=== PATIENT | female | born 1940 | race Caucasian/White ===

== ENCOUNTER → 2016-12-01 | Outpatient (CLI) | payer MEDICARE ==
[2016-12-01 17:00] LABS: BLOOD UREA NITROGEN 15 MG/DL (7-18); CREATININE FOR GFR 0.81 MG/DL (0.55-1.02); GLOMERULAR FILTRATION RATE > 60.0 (>39)
[2016-12-03 15:12] LABS: T PALLIDUM AB (FTA-AB) Non Reactive (Non Reactive)
== END | disposition home or self-care (01) ==
LOC: M LAB 16:02
PROVIDERS: ATTEND Ophthalmology
DX: H47.019 Ischemic optic neuropathy, unspecified eye (principal)

== ENCOUNTER 2016-12-16 12:30 | Outpatient (CLI) | payer MEDICARE ==
[~2016-12-16] VITALS: Ht 152.4 cm; Wt 63.6 kg
[2016-12-16] MEDS ORDERED: methylPREDNISolone 1,000 MG, VIAL MATE ADAPTER 1 EACH in D5W 250 ML IV ONE (13:15)
[2016-12-17] MEDS ORDERED: ASPI81TA21 PO (12:43)
== END 2016-12-16 14:30 | disposition home or self-care (01) ==
LOC: M INFU 12:30
PROVIDERS: ATTEND Psychiatry & Neurology Neurology
DX: H47.012 Ischemic optic neuropathy, left eye (principal); Z79.82 Long term (current) use of aspirin
CPT/HCPCS: 96365; J2930

== ENCOUNTER 2016-12-17 12:15 | Outpatient (CLI) | payer MEDICARE ==
[~2016-12-17] VITALS: Ht 152.4 cm; Wt 63.6 kg
[2016-12-17 12:30] VITALS: BP 167/81
[2016-12-17] MEDS ORDERED: ASPI81TA21 PO (12:43)
[2016-12-17] MEDS ORDERED: methylPREDNISolone 1,000 MG, VIAL MATE ADAPTER 1 EACH in D5W 250 ML IV ONE (12:45)
== END 2016-12-17 14:32 | disposition home or self-care (01) ==
LOC: M OPCLI4PR 12:15 → M OPCLIPED 12:15 → M PED 12:19 → M OPCLI4PR 14:32
PROVIDERS: ATTEND Psychiatry & Neurology Neurology
DX: H47.012 Ischemic optic neuropathy, left eye (principal)
CPT/HCPCS: 96365; J2930

== ENCOUNTER 2016-12-18 11:47 | Outpatient (CLI) | payer MEDICARE ==
[~2016-12-18] VITALS: Ht 152.4 cm; Wt 63.4 kg
[~2016-12-18 11:47] MED LIST: ASPI81TA21 PO
[2016-12-18 12:00] VITALS: BP 173/85
[2016-12-18] MEDS ORDERED: methylPREDNISolone 1,000 MG, VIAL MATE ADAPTER 1 EACH in D5W 250 ML IV ONE (13:00)
[2016-12-18 14:00] VITALS: BP 189/94
[2016-12-18 14:15] VITALS: BP 189/103
[2016-12-18 14:17] VITALS: BP 190/100
== END 2016-12-18 15:00 | disposition home or self-care (01) ==
LOC: M OPCLI4PR 11:47 → M PED 11:50 → M OPCLI4PR 15:00
PROVIDERS: ATTEND Psychiatry & Neurology Neurology
DX: H47.012 Ischemic optic neuropathy, left eye (principal)
CPT/HCPCS: 96365; J2930

== ENCOUNTER → 2019-01-07 | Outpatient (REF) | payer MEDICARE ==
[2019-01-07 13:09] LABS: FOLATE 10.8 NG/ML
== END ==
LOC: M LAB REF 12:21
PROVIDERS: ATTEND Internal Medicine
DX: G31.84 Mild cognitive impairment of uncertain or unknown etiology (principal)

== ENCOUNTER 2019-11-20 15:13 | Emergency (ER) | payer MEDICARE ==
[~2019-11-20] VITALS: Ht 149.9 cm; Wt 68.4 kg
[2019-11-20] MEDS ORDERED: LISI-538 PO (15:26)
[2019-11-20] MEDS ORDERED: ROSU5TAB5 PO (15:26)
[2019-11-20] MEDS ORDERED: ISOVUE-370 76% 100ML VIAL (Q9967) As Ordered ONE (17:22)
[2019-11-20] MEDS ORDERED: NS 1,000 ML IV ONE (17:30)
[2019-11-20] MEDS ORDERED: ONDANSETRON 4MG/2ML VIAL (J2405) IV ONE (17:30)
[2019-11-20 17:31] LABS: BASO # 0.1 10^3/uL (0.0-0.2); BASO % 1.1 % (0.0-1.0); EOS # 0.1 10^3/uL (0.0-0.5); EOS % 0.7 % (0.0-3.0); HEMATOCRIT 38.9 % (36.0-47.0); HEMOGLOBIN 12.7 g/dl (12.0-15.5); LYMPH # 1.1 10^3/uL (1.5-5.0); LYMPH % 13.9 % (24.0-44.0); MEAN CORPUSCULAR HGB CONC 32.6 g/dl (32.0-36.5); MEAN CORPUSCULAR VOLUME 88.8 fl (80.0-96.0); MONO # 0.4 10^3/uL (0.0-0.8); MONO % 5.8 % (0.0-5.0); NEUTROPHILS # 5.9 10^3/uL (1.5-8.5); NEUTROPHILS % 78.1 % (36.0-66.0); PLATELET COUNT, AUTOMATED 245 10^3/uL (150-450); RED BLOOD COUNT 4.38 10^6/uL (4.00-5.40); WHITE BLOOD COUNT 7.6 10^3/uL (4.0-10.0)
[2019-11-20 17:41] LABS: INR 1.05; PROTHROMBIN TIME 13.4 SECONDS (11.8-14.0)
[2019-11-20 17:49] LABS: ALBUMIN 3.9 GM/DL (3.2-5.2); ALT/SGPT 21 U/L (12-78); BILIRUBIN,DIRECT 0.2 MG/DL (0.0-0.2); BILIRUBIN,TOTAL 0.7 MG/DL (0.2-1.0); CK-MB VALUE MASS 1.9 NG/ML (<3.6); CPK CREATINE PHOSPHOKINASE 145 U/L (26-192); LIPASE 104 U/L (73-393); MB/CK RELATIVE INDEX 1.31 (< OR =4); TOTAL PROTEIN 6.8 GM/DL (6.4-8.2); TROPONIN I < 0.02 NG/ML (< 0.10)
--- NOTE | 2019-11-20 17:49 | REPVR ---
PROCEDURE INFORMATION: Exam: CT Head Without Contrast Exam date and time: 11/20/2019 5:27 PM Age: 79 years old Clinical indication: Altered mental status/memory loss; Additional info: Memory issues/shaking TECHNIQUE: Imaging protocol: Computed tomography of the head without contrast. Radiation optimization: All CT scans at this facility use at least one of these dose optimization techniques: automated exposure control; mA and/or kV adjustment per patient size (includes targeted exams where dose is matched to clinical indication); or iterative reconstruction. COMPARISON: No relevant prior studies available. FINDINGS: Brain: There are moderate periventricular and subcortical lucencies consistent with chronic microvascular ischemic changes. The menjivar-white differentiation is maintained. No hemorrhage. No edema. Ventricles: Normal. No ventriculomegaly. Bones/joints: Unremarkable. No acute fracture. Sinuses: Visualized sinuses are unremarkable. No fluid levels. Mastoid air cells: Visualized mastoid air cells are well aerated. Orbits: Bilateral cataract surgery. Soft tissues: Unremarkable. IMPRESSION: No acute intracranial abnormality. Chronic microvascular ischemic changes. Electronically signed by: Kenan Hutchins On 11/20/2019 17:49:28 PM
--- NOTE | 2019-11-20 18:02 | REPVR ---
PROCEDURE INFORMATION: Exam: CT Abdomen And Pelvis With Contrast Exam date and time: 11/20/2019 5:27 PM Age: 79 years old Clinical indication: Abdominal pain; Localized; Right; Additional info: Right abd pain TECHNIQUE: Imaging protocol: Computed tomography of the abdomen and pelvis with intravenous contrast. Radiation optimization: All CT scans at this facility use at least one of these dose optimization techniques: automated exposure control; mA and/or kV adjustment per patient size (includes targeted exams where dose is matched to clinical indication); or iterative reconstruction. Contrast material: ISOVUE 370; Contrast volume: 100 ml; Contrast route: IV; COMPARISON: No relevant prior studies available. FINDINGS: Liver: Multiple cysts in the liver, the largest measures 3 cm in the right hepatic lobe. Gallbladder and bile ducts: Normal. No calcified stones. No ductal dilation. Pancreas: Multiple cystic lesions in the pancreas. 1.3 cm cystic lesion in the pancreatic body. There is a 1.8 cm ill-defined hypodensity in the pancreatic head. Spleen: Normal. No splenomegaly. Adrenals: Normal. No mass. Kidneys and ureters: Normal. No hydronephrosis. Stomach and bowel: Unremarkable. No obstruction. No mucosal thickening. Appendix: No evidence of appendicitis. Intraperitoneal space: Unremarkable. No free air. No significant fluid collection. Vasculature: Unremarkable. No abdominal aortic aneurysm. Lymph nodes: Unremarkable. No enlarged lymph nodes. Bladder: Unremarkable as visualized. Reproductive: Unremarkable as visualized. Bones/joints: Endometrial cavity measures 2.3 cm diverticulosis of the sigmoid colon degenerative changes of the spine. Degenerative changes of bilateral hip joints. Soft tissues: Unremarkable. IMPRESSION: No acute abdominal or pelvic abnormality. Multiple cystic lesions in the pancreas. MRI with and without contrast is recommended for complete evaluation. Electronically signed by: Kenan Hutchins On 11/20/2019 18:02:02 PM
[2019-11-20 19:26] VITALS: BP 146/91
--- NOTE | 2019-11-20 20:51 | REPVR ---
PROCEDURE INFORMATION: Exam: US Pelvis Complete, Transabdominal Exam date and time: 11/20/2019 7:52 PM Age: 79 years old Clinical indication: Abnormal findings; Abnormal imaging test; Additional info: Enlarged endometrial cavity on CT TECHNIQUE: Imaging protocol: Real-time transabdominal pelvic ultrasound with image documentation. Complete exam. COMPARISON: CT ABD/PEL W/IV CONTRAST ONLY 11/20/2019 5:27 PM FINDINGS: Uterus/cervix: Uterus measures 5.0 x 3.4 x 3.2 cm. 2 cystic areas are noted in the endometrium measuring 2.2 cm and 1.2 cm. Other smaller cystic foci are present. No solid endometrial mass is seen. Some intervening tissue is present between the 2 cystic areas. No uterine masses are identified. Endometrial vascularity was not assessed on the exam. Right adnexa: Not visualized. Left adnexa: Not visualized. Free fluid: None. IMPRESSION: Endometrium replaced by multiple cystic areas which have a nonspecific appearance. Consider endometrial sampling or short-term followup. Electronically signed by: Andres Goss On 11/20/2019 20:51:40 PM
[2019-11-20] MEDS ORDERED: ONDA4TAB6 PO (21:16)
--- NOTE | 2019-11-22 13:11 | ECGEPIP ---
[facility] - ED Test Date: 2019-11-20 Pat Name: RICHARD ALDANA Department: Room: - Gender: Female Batter Out: : 1940 Requested By: Carol Membreno Order Number: [id number] Reading MD: Carol Membreno Measurements Intervals [place] Rate: 76 P: -17 MT: 143 QRS: 47 QRSD: 86 T: 126 QT: 361 QTc: 407 Interpretive Statements SINUS RHYTHM MODERATE T-WAVE ABNORMALITY, CONSIDER ISCHEMIA NO PRIOR Electronically Signed on 11-22-2019 13:10:45 EST by Carol Membreno
--- NOTE | 2019-11-25 15:03 | ED PDOC ---
Post-Departure Follow-Up dr doyle faxed formal report of ct abd/p and pelvic us for fu Maria Elena Cuello MD Nov 25, 2019 15:03
== END 2019-11-20 22:12 | disposition home or self-care (01) ==
LOC: M ED 15:13
DX: K86.9 Disease of pancreas, unspecified (principal); N85.9 Noninflammatory disorder of uterus, unspecified; R11.0 Nausea; I67.82 Cerebral ischemia; E78.5 Hyperlipidemia, unspecified; Z79.899 Other long term (current) drug therapy; Z79.82 Long term (current) use of aspirin
CPT/HCPCS: 70450; 74177; 76830; 76856; 80047; 80076; 81001; 82550; 82553; 83690; 84484; 85025; 85610; 86850; 86900; 86901; 93005; 96361; 96374; 99284; J2405; Q9967

== ENCOUNTER → 2019-12-06 | Outpatient (CLI) | payer MEDICARE ==
[~2019-12-06] MED LIST changes: +LISI-538 PO; +ONDA4TAB6 PO; +PROHANCE 279.3MG/ML 15ML VIAL (A9576) As Ordered ONE; +ROSU5TAB5 PO
--- NOTE | 2019-12-06 12:28 | REP ---
MRI ABDOMEN AND PANCREAS WITHOUT AND WITH IV GADOLINIUM: HISTORY: Cystic lesions in the pancreas on CT study November 20, 2019. TECHNIQUE: Axial and coronal T1- and T2-weighted scans include spin-echo, fast spin-echo, in and [id number], and dynamically acquired sequential post contrast imaging. Contrast enhancement dose is 12 mL of intravenous ProHance. MRI FINDINGS: Multiple simple hepatic cysts are seen as on CT study. T2-weighted scans demonstrate a T2 hyperintense, well-defined simple-appearing cyst along the superior margin of the pancreas at the head/body junction. This measures 13 mm in diameter. There are tiny cysts in the pancreatic tail, and there are one or two tiny sub-centimeter cysts adjacent to the CBD in the head of the pancreas. No pancreatic mass lesion is observed. Postcontrast imaging of the pancreas shows no focal area of abnormal contrast enhancement in the pancreas. There is no evidence of upper abdominal adenopathy. No focal liver mass lesion is seen. The spleen is unremarkable. Normal adrenal glands are seen bilaterally. There are tiny subcentimeter cortical cysts in the kidneys. IMPRESSION: Small simple-appearing cystic areas in the pancreas, head, and body. The largest is 13 mm in diameter. No evidence of pancreatic mass lesion. Consider followup scan in 6-12 months. Electronically Signed by Yovani Teran MD 12/06/2019 12:34 P
== END ==
LOC: M RAD 10:46
PROVIDERS: ATTEND Internal Medicine
DX: D48.7 Neoplasm of uncertain behavior of other specified sites (principal)
CPT/HCPCS: 74183; A9576

== ENCOUNTER → 2020-04-27 | Outpatient (CLI) | payer MEDICARE ==
[~2020-04-27] MED LIST changes: +BIOT5TAB3 PO; +BUSP5TA PO; +CALC250T PO; +D200CAP3 PO; +DONE10TA90 PO; +GOOD81CH PO; -PROHANCE 279.3MG/ML 15ML VIAL (A9576) As Ordered ONE; +SERT50TA29 PO
== END ==
LOC: M LABSMTC 10:07
PROVIDERS: ATTEND Anesthesiology
DX: Z01.818 Encounter for other preprocedural examination (principal); Z11.59 Encounter for screening for other viral diseases
CPT/HCPCS: C9803; U0003

== ENCOUNTER 2020-04-30 11:05 | Day surgery (SDC) | payer MEDICARE ==
[~2020-04-30] VITALS: Ht 149.9 cm; Wt 62.2 kg
[~2020-04-30 11:05] MED LIST changes: +LIDOCAINE 1% MDV 20ML VIAL SQ PRN
[2020-04-30] MEDS ORDERED: ROCURONIUM BROMIDE 50 MG/5 ML VIAL As Ordered ONE (12:05)
[2020-04-30] MEDS ORDERED: LIDOCAINE 2% 100MG/5ML SDV (FOR ANES.) As Ordered ONE (12:05)
[2020-04-30] MEDS ORDERED: ONDANSETRON 4MG/2ML VIAL As Ordered ONE (12:05)
[2020-04-30] MEDS ORDERED: dexameTHASONE 4 MG/ML 1ML VIAL (J1100 PER 1MG) As Ordered ONE (12:05)
[2020-04-30] MEDS ORDERED: propofoL 200 MG/20 ML VIAL As Ordered ONE (12:05)
[2020-04-30] MEDS ORDERED: fentaNYL 100 MCG/2 ML INJECTION (J3010) As Ordered ONE (12:08)
[2020-04-30] MEDS ORDERED: MIDAZOLAM INJ 2MG/2ML VIAL (J2250 PER 1MG) As Ordered ONE (12:08)
[2020-04-30] MEDS ORDERED: KETOROLAC 60MG 2ML VIAL As Ordered ONE (14:20)
[2020-04-30] MEDS ORDERED: LR 1,000 ML IV SCH ×2 (15:15)
[2020-04-30] MEDS ORDERED: METOCLOPRAMIDE INJ 10MG/2ML VIAL (J2765 PER 1) IV PRN (15:15)
[2020-04-30] MEDS ORDERED: ONDANSETRON 4MG/2ML VIAL IV PRN (15:15)
[2020-04-30] MEDS ORDERED: PERCOCET 5MG/325MG TAB PO PRN (15:15)
[2020-04-30] MEDS ORDERED: fentaNYL 100 MCG/2 ML INJECTION (J3010) IV PRN (15:15)
[2020-04-30] MEDS ORDERED: IBUPROFEN 600MG TAB PO PRN (15:15)
[2020-04-30 16:45] VITALS: BP 144/69
== END 2020-04-30 16:50 | disposition home or self-care (01) ==
LOC: M SDC 11:05
PROVIDERS: ATTEND Obstetrics & Gynecology
DX: N95.0 Postmenopausal bleeding (principal); N84.0 Polyp of corpus uteri; I10 Essential (primary) hypertension; F03.90 Unspecified dementia, unspecified severity, without behavioral disturbance, psychotic disturbance, mood disturbance, and anxiety; E78.00 Pure hypercholesterolemia, unspecified; Z79.82 Long term (current) use of aspirin; Z79.899 Other long term (current) drug therapy
CPT/HCPCS: 58558; 88305; J1100; J1885; J2250; J2405; J3010

== ENCOUNTER → 2020-11-26 | Outpatient (REF) | payer MEDICARE ==
[~2020-11-26] MED LIST changes: -LIDOCAINE 1% MDV 20ML VIAL SQ PRN; -LISI-538 PO; +LISI20TA33 PO
== END ==
LOC: M LAB REF 12:16
PROVIDERS: ATTEND Internal Medicine
DX: R10.9 Unspecified abdominal pain (principal)

== ENCOUNTER 2022-06-08 11:29 | Inpatient (IN) | payer MEDICARE ==
[~2022-06-08] VITALS: Ht 144.8 cm; Wt 54.5 kg
[~2022-06-08 11:29] MED LIST changes: -GOOD81CH PO; +RA A PO
[2022-06-08] MEDS ORDERED: MIDAZOLAM INJ 2MG/2ML VIAL IM ONE (11:50)
[2022-06-08] MEDS ORDERED: diphenhydrAMINE 50MG/ML VIAL IM ONE (11:50)
[2022-06-08] MEDS ORDERED: HALOPERIDOL 5MG/ML 1ML VIAL IM ONE (11:50)
[2022-06-08 11:55] LABS: BASO % 0.8 % (0.0-1.0); EOS # 0.1 10^3/uL (0.0-0.5); EOS % 2.6 % (0.0-3.0); HEMATOCRIT 39.9 % (36.0-47.0); HEMOGLOBIN 13.2 g/dl (12.0-15.5); LYMPH # 1.2 10^3/uL (1.5-5.0); LYMPH % 24.1 % (24.0-44.0); MEAN CORPUSCULAR HEMOGLOBIN 29.7 pg (27.0-33.0); MEAN CORPUSCULAR HGB CONC 33.1 g/dl (32.0-36.5); MEAN CORPUSCULAR VOLUME 89.7 fl (80.0-96.0); MONO # 0.4 10^3/uL (0.0-0.8); MONO % 7.8 % (2.0-8.0); NEUTROPHILS # 3.2 10^3/uL (1.5-8.5); NEUTROPHILS % 64.5 % (36.0-66.0); PLATELET COUNT, AUTOMATED 208 10^3/uL (150-450); RED BLOOD COUNT 4.45 10^6/uL (4.00-5.40)
[2022-06-08 12:35] LABS: ALBUMIN 3.5 GM/DL (3.2-5.2); ALKALINE PHOSPHATASE 56 U/L (45-117); ALT/SGPT 20 U/L (12-78); AST/SGOT 19 U/L (7-37); BILIRUBIN,DIRECT 0.2 MG/DL (0.0-0.2); BILIRUBIN,TOTAL 0.9 MG/DL (0.2-1.0); BLOOD UREA NITROGEN 13 MG/DL (7-18); CALCIUM LEVEL 9.2 MG/DL (8.8-10.2); CARBON DIOXIDE LEVEL 26 MEQ/L (21-32); CHLORIDE LEVEL 112 MEQ/L (98-107); CREATININE FOR GFR 0.81 MG/DL (0.55-1.30); ETHYL ALCOHOL (ETHANOL) < 0.003 % (0.000-0.010); GLOMERULAR FILTRATION RATE > 60.0 (>39); GLUCOSE, FASTING 125 MG/DL (70-100); LIPASE 120 U/L (73-393); POTASSIUM SERUM 4.2 MEQ/L (3.5-5.1); SODIUM LEVEL 143 MEQ/L (136-145); TOTAL PROTEIN 6.4 GM/DL (6.4-8.2)
[2022-06-08 12:36] LABS: ACETAMINOPHEN LEVEL < 2.0 UG/ML (10.0-30.0); SALICYLATE LEVEL < 1.7 MG/DL (5.0-30.0); THYROID STIMULATING HORMONE 0.915 uIU/ML (0.358-3.740)
[2022-06-08 12:48] LABS: RSV AMPLIFICATION NEGATIVE (NEGATIVE)
[2022-06-08] MEDS ORDERED: OLANZapine 5 MG TAB PO ONE (15:00)
[2022-06-08] MEDS ORDERED: HOME MED LIST COMPLETE! XX SCH (16:25)
[2022-06-08] MEDS ORDERED: hydrALAZINE 20MG/ML 1ML VIAL IV PRN (17:10)
[2022-06-08 17:12] LABS: AMPHETAMINES LEVEL URINE NEGATIVE (NEGATIVE); BARBITURATES URINE NEGATIVE (NEGATIVE); BENZODIAZEPINES URINE NEGATIVE (NEGATIVE); CANNABINOIDS URINE NEGATIVE (NEGATIVE); COCAINE METABOLITE URINE NEGATIVE (NEGATIVE); METHADONE URINE NEGATIVE (NEGATIVE); OPIATES URINE NEGATIVE (NEGATIVE); PHENCYCLIDINE URINE NEGATIVE (NEGATIVE)
[2022-06-08] MEDS: HALOPERIDOL 5MG/ML 1ML VIAL IM PRN (17:38)
[2022-06-08 19:59] VITALS: BP 187/96
[2022-06-08 20:43] VITALS: BP 116/69
[2022-06-08] MEDS ORDERED: OLANZapine 5 MG TAB PO SCH (21:00)
[2022-06-09 04:00] VITALS: BP 138/87
[2022-06-09] MEDS: HALOPERIDOL 5MG/ML 1ML VIAL IM PRN (04:24)
[2022-06-09 05:47] LABS: ALBUMIN 3.7 GM/DL (3.2-5.2); ALKALINE PHOSPHATASE 57 U/L (45-117); ALT/SGPT 20 U/L (12-78); AST/SGOT 22 U/L (7-37); BLOOD UREA NITROGEN 13 MG/DL (7-18); CALCIUM LEVEL 9.2 MG/DL (8.8-10.2); CARBON DIOXIDE LEVEL 26 MEQ/L (21-32); CHLORIDE LEVEL 110 MEQ/L (98-107); GLOMERULAR FILTRATION RATE > 60.0 (>39); GLUCOSE, FASTING 101 MG/DL (70-100); MAGNESIUM LEVEL 2.2 MG/DL (1.8-2.4); PHOSPHORUS LEVEL 3.9 MG/DL (2.5-4.9); POTASSIUM SERUM 3.8 MEQ/L (3.5-5.1); SODIUM LEVEL 139 MEQ/L (136-145); TOTAL PROTEIN 6.5 GM/DL (6.4-8.2)
[2022-06-09 08:29] VITALS: BP 123/66
[2022-06-09] MEDS: ENOXAPARIN 40MG/0.4ML SYRINGE (J1650 PER 10MG) SC SCH (09:06)
[2022-06-09 15:37] VITALS: BP 90/57
[2022-06-09 20:00] VITALS: BP 100/66
[2022-06-10] VITALS: BP 106/61
[2022-06-10 04:00] VITALS: BP 110/70
[2022-06-10 09:52] VITALS: BP 104/63
[2022-06-10] MEDS: ENOXAPARIN 40MG/0.4ML SYRINGE (J1650 PER 10MG) SC SCH (10:20)
[2022-06-10 16:20] VITALS: BP 111/63
[2022-06-11 06:00] VITALS: BP 155/74
[2022-06-11] MEDS: ENOXAPARIN 40MG/0.4ML SYRINGE (J1650 PER 10MG) SC SCH (08:29)
[2022-06-11] MEDS ORDERED: HOME MED LIST COMPLETE! XX SCH (08:55)
[2022-06-11] MEDS: HALOPERIDOL 5MG/ML 1ML VIAL IM PRN (23:31)
[2022-06-12 05:26] VITALS: BP_SYST 122; BP_SYST 127; BP_DIAS 74; BP_DIAS 78
[2022-06-12] MEDS: ENOXAPARIN 40MG/0.4ML SYRINGE (J1650 PER 10MG) SC SCH (08:11)
[2022-06-12] MEDS: HALOPERIDOL 5MG/ML 1ML VIAL IM PRN (21:34)
[2022-06-13 06:00] VITALS: BP 119/71
[2022-06-13] MEDS: ENOXAPARIN 40MG/0.4ML SYRINGE (J1650 PER 10MG) SC SCH (09:12)
[2022-06-14] MEDS: ENOXAPARIN 40MG/0.4ML SYRINGE (J1650 PER 10MG) SC SCH (08:28)
[2022-06-15 06:00] VITALS: BP 129/71
[2022-06-15] MEDS: ENOXAPARIN 40MG/0.4ML SYRINGE (J1650 PER 10MG) SC SCH (08:18)
[2022-06-15] MEDS: RAMELTEON 8 MG TAB (ROZEREM) PO PRN (22:01)
[2022-06-16 06:00] VITALS: BP 115/72
[2022-06-16] MEDS: ENOXAPARIN 40MG/0.4ML SYRINGE (J1650 PER 10MG) SC SCH (08:37)
[2022-06-16 09:00] VITALS: BP 134/65
[2022-06-16] MEDS: RAMELTEON 8 MG TAB (ROZEREM) PO PRN (19:32)
[2022-06-17 06:00] VITALS: BP 133/64
[2022-06-17] MEDS: ENOXAPARIN 40MG/0.4ML SYRINGE (J1650 PER 10MG) SC SCH (10:49)
[2022-06-18 06:00] VITALS: BP 120/74
[2022-06-18] MEDS: ENOXAPARIN 40MG/0.4ML SYRINGE (J1650 PER 10MG) SC SCH (08:15)
[2022-06-18] MEDS: DIMETHICONE 2% OINTMENT(VANICREAM) 70GM TUBE TOP SCH ×2 (10:39→21:12)
[2022-06-18] MEDS: RAMELTEON 8 MG TAB (ROZEREM) PO PRN (23:25)
[2022-06-19 05:35] VITALS: BP 140/84
[2022-06-19] MEDS: ENOXAPARIN 40MG/0.4ML SYRINGE (J1650 PER 10MG) SC SCH (08:43)
[2022-06-19] MEDS: DIMETHICONE 2% OINTMENT(VANICREAM) 70GM TUBE TOP SCH ×2 (08:44→21:25)
[2022-06-20 06:00] VITALS: BP 117/52
[2022-06-20] MEDS: ENOXAPARIN 40MG/0.4ML SYRINGE (J1650 PER 10MG) SC SCH (09:02)
[2022-06-20] MEDS: DIMETHICONE 2% OINTMENT(VANICREAM) 70GM TUBE TOP SCH ×2 (09:31→21:18)
[2022-06-21 06:00] VITALS: BP 122/68
[2022-06-21] MEDS: ENOXAPARIN 40MG/0.4ML SYRINGE (J1650 PER 10MG) SC SCH (08:05)
[2022-06-21] MEDS: DIMETHICONE 2% OINTMENT(VANICREAM) 70GM TUBE TOP SCH ×2 (08:06→21:21)
[2022-06-22 06:00] VITALS: BP 105/63
[2022-06-22] MEDS: ENOXAPARIN 40MG/0.4ML SYRINGE (J1650 PER 10MG) SC SCH ×2 (09:00→09:10)
[2022-06-22] MEDS: DIMETHICONE 2% OINTMENT(VANICREAM) 70GM TUBE TOP SCH ×2 (09:10→22:24)
[2022-06-22] MEDS ORDERED: COVID-19 VACC, MRNA(PFIZER)/PF 30MCG 0.3ML VIAL (EUA) IM ONE (17:00)
[2022-06-23 06:00] VITALS: BP 125/64
[2022-06-23 07:21] LABS: HEMATOCRIT 35.6 % (36.0-47.0); HEMOGLOBIN 11.2 g/dl (12.0-15.5); MEAN CORPUSCULAR HGB CONC 31.5 g/dl (32.0-36.5); MEAN CORPUSCULAR VOLUME 92.2 fl (80.0-96.0); PLATELET COUNT, AUTOMATED 188 10^3/uL (150-450); RED BLOOD COUNT 3.86 10^6/uL (4.00-5.40); WHITE BLOOD COUNT 5.9 10^3/uL (4.0-10.0)
[2022-06-23 07:56] LABS: BLOOD UREA NITROGEN 21 MG/DL (7-18); CALCIUM LEVEL 9.2 MG/DL (8.8-10.2); CARBON DIOXIDE LEVEL 27 MEQ/L (21-32); CHLORIDE LEVEL 108 MEQ/L (98-107); CREATININE FOR GFR 0.71 MG/DL (0.55-1.30); GLOMERULAR FILTRATION RATE > 60.0 (>32); GLUCOSE, FASTING 85 MG/DL (70-100); POTASSIUM SERUM 4.3 MEQ/L (3.5-5.1); SODIUM LEVEL 140 MEQ/L (136-145)
[2022-06-23] MEDS: ENOXAPARIN 40MG/0.4ML SYRINGE (J1650 PER 10MG) SC SCH (08:22)
[2022-06-23] MEDS: DIMETHICONE 2% OINTMENT(VANICREAM) 70GM TUBE TOP SCH ×2 (08:22→20:39)
[2022-06-23] MEDS: HALOPERIDOL 5MG/ML 1ML VIAL IM PRN (20:34)
[2022-06-24 05:42] VITALS: BP 150/77
[2022-06-24] MEDS: ENOXAPARIN 40MG/0.4ML SYRINGE (J1650 PER 10MG) SC SCH (08:49)
[2022-06-24] MEDS: DIMETHICONE 2% OINTMENT(VANICREAM) 70GM TUBE TOP SCH ×2 (08:50→19:56)
[2022-06-24] MEDS: RAMELTEON 8 MG TAB (ROZEREM) PO PRN (20:13)
[2022-06-24] MEDS: QUEtiapine FUMARATE 12.5 MG HALF-TAB PO SCH (20:32)
[2022-06-25] MEDS: ENOXAPARIN 40MG/0.4ML SYRINGE (J1650 PER 10MG) SC SCH (09:00)
[2022-06-25] MEDS: DIMETHICONE 2% OINTMENT(VANICREAM) 70GM TUBE TOP SCH ×2 (09:23→20:24)
[2022-06-25] MEDS: RAMELTEON 8 MG TAB (ROZEREM) PO PRN (20:24)
[2022-06-25] MEDS: QUEtiapine FUMARATE 12.5 MG HALF-TAB PO SCH (20:24)
[2022-06-26 06:25] LABS: HEMATOCRIT 31.9 % (36.0-47.0); HEMOGLOBIN 10.5 g/dl (12.0-15.5); MEAN CORPUSCULAR HEMOGLOBIN 29.9 pg (27.0-33.0); MEAN CORPUSCULAR HGB CONC 32.9 g/dl (32.0-36.5); MEAN CORPUSCULAR VOLUME 90.9 fl (80.0-96.0); PLATELET COUNT, AUTOMATED 185 10^3/uL (150-450); RED BLOOD COUNT 3.51 10^6/uL (4.00-5.40); WHITE BLOOD COUNT 4.8 10^3/uL (4.0-10.0)
[2022-06-26 07:19] LABS: ALKALINE PHOSPHATASE 48 U/L (45-117); ALT/SGPT 28 U/L (12-78); AST/SGOT 29 U/L (7-37); BILIRUBIN,TOTAL 0.6 MG/DL (0.2-1.0); BLOOD UREA NITROGEN 24 MG/DL (7-18); CALCIUM LEVEL 8.8 MG/DL (8.8-10.2); CARBON DIOXIDE LEVEL 28 MEQ/L (21-32); CHLORIDE LEVEL 111 MEQ/L (98-107); CREATININE FOR GFR 0.74 MG/DL (0.55-1.30); GLOMERULAR FILTRATION RATE > 60.0 (>32); GLUCOSE, FASTING 99 MG/DL (70-100); POTASSIUM SERUM 4.2 MEQ/L (3.5-5.1); SODIUM LEVEL 142 MEQ/L (136-145); TOTAL PROTEIN 5.3 GM/DL (6.4-8.2)
[2022-06-26] MEDS: DIMETHICONE 2% OINTMENT(VANICREAM) 70GM TUBE TOP SCH ×2 (07:41→19:54)
[2022-06-26] MEDS: ENOXAPARIN 40MG/0.4ML SYRINGE (J1650 PER 10MG) SC SCH (07:41)
[2022-06-26] MEDS ORDERED: QUEtiapine FUMARATE 12.5 MG HALF-TAB PO PRN (12:15)
[2022-06-26] MEDS: RAMELTEON 8 MG TAB (ROZEREM) PO PRN (19:54)
[2022-06-26] MEDS: QUEtiapine FUMARATE 12.5 MG HALF-TAB PO SCH (19:54)
[2022-06-27 06:00] VITALS: BP 120/75
[2022-06-27] MEDS: ENOXAPARIN 40MG/0.4ML SYRINGE (J1650 PER 10MG) SC SCH (09:31)
[2022-06-27] MEDS: DIMETHICONE 2% OINTMENT(VANICREAM) 70GM TUBE TOP SCH ×2 (09:31→21:04)
[2022-06-27] MEDS: QUEtiapine FUMARATE 12.5 MG HALF-TAB PO SCH (21:03)
[2022-06-28 05:02] VITALS: BP 117/65
[2022-06-28] MEDS: DIMETHICONE 2% OINTMENT(VANICREAM) 70GM TUBE TOP SCH ×2 (08:21→20:19)
[2022-06-28] MEDS: ENOXAPARIN 40MG/0.4ML SYRINGE (J1650 PER 10MG) SC SCH (08:21)
[2022-06-28] MEDS ORDERED: HALOPERIDOL 5MG/ML 1ML VIAL IM PRN (15:10)
[2022-06-28] MEDS: QUEtiapine FUMARATE 25 MG TAB PO SCH (20:19)
[2022-06-29 07:03] VITALS: BP 125/78
[2022-06-29] MEDS: DIMETHICONE 2% OINTMENT(VANICREAM) 70GM TUBE TOP SCH ×2 (09:18→20:11)
[2022-06-29] MEDS: ENOXAPARIN 40MG/0.4ML SYRINGE (J1650 PER 10MG) SC SCH (09:18)
[2022-06-29] MEDS: QUEtiapine FUMARATE 25 MG TAB PO SCH (20:11)
[2022-06-29] MEDS: RAMELTEON 8 MG TAB (ROZEREM) PO PRN (20:11)
[2022-06-30] MEDS: ENOXAPARIN 40MG/0.4ML SYRINGE (J1650 PER 10MG) SC SCH ×2 (08:15→08:19)
[2022-06-30] MEDS: DIMETHICONE 2% OINTMENT(VANICREAM) 70GM TUBE TOP SCH ×2 (08:16→20:12)
[2022-06-30] MEDS: QUEtiapine FUMARATE 25 MG TAB PO SCH (20:07)
[2022-06-30] MEDS: RAMELTEON 8 MG TAB (ROZEREM) PO PRN (20:07)
[2022-07-01 06:00] VITALS: BP 112/63
[2022-07-01 09:00] VITALS: BP 108/56
[2022-07-01] MEDS: ENOXAPARIN 40MG/0.4ML SYRINGE (J1650 PER 10MG) SC SCH ×2 (09:00→09:23)
[2022-07-01] MEDS ORDERED: FUROSEMIDE 40 MG TAB PO SCH (09:00)
[2022-07-01] MEDS: DIMETHICONE 2% OINTMENT(VANICREAM) 70GM TUBE TOP SCH ×2 (09:24→19:52)
[2022-07-01 14:05] LABS: BLOOD UREA NITROGEN 22 MG/DL (7-18); CALCIUM LEVEL 9.2 MG/DL (8.8-10.2); CARBON DIOXIDE LEVEL 30 MEQ/L (21-32); CHLORIDE LEVEL 107 MEQ/L (98-107); CREATININE FOR GFR 0.89 MG/DL (0.55-1.30); GLOMERULAR FILTRATION RATE > 60.0 (>32); GLUCOSE, FASTING 91 MG/DL (70-100); MAGNESIUM LEVEL 2.3 MG/DL (1.8-2.4); POTASSIUM SERUM 4.4 MEQ/L (3.5-5.1); SODIUM LEVEL 139 MEQ/L (136-145)
[2022-07-01] MEDS ORDERED: FUROSEMIDE 20 MG TAB PO ONE (14:15)
[2022-07-01] MEDS: FUROSEMIDE 20 MG TAB PO SCH (15:26)
[2022-07-01] MEDS: RAMELTEON 8 MG TAB (ROZEREM) PO PRN (19:52)
[2022-07-01] MEDS: QUEtiapine FUMARATE 25 MG TAB PO SCH (19:52)
[2022-07-02 06:00] VITALS: BP 114/64
[2022-07-02 07:03] LABS: BLOOD UREA NITROGEN 20 MG/DL (7-18); CALCIUM LEVEL 9.1 MG/DL (8.8-10.2); CARBON DIOXIDE LEVEL 27 MEQ/L (21-32); CHLORIDE LEVEL 109 MEQ/L (98-107); GLOMERULAR FILTRATION RATE > 60.0 (>32); GLUCOSE, FASTING 100 MG/DL (70-100); MAGNESIUM LEVEL 2.2 MG/DL (1.8-2.4); POTASSIUM SERUM 4.4 MEQ/L (3.5-5.1); SODIUM LEVEL 142 MEQ/L (136-145)
[2022-07-02] MEDS: DIMETHICONE 2% OINTMENT(VANICREAM) 70GM TUBE TOP SCH ×2 (09:00→19:55)
[2022-07-02] MEDS: FUROSEMIDE 20 MG TAB PO SCH (10:04)
[2022-07-02] MEDS: ENOXAPARIN 40MG/0.4ML SYRINGE (J1650 PER 10MG) SC SCH (10:04)
[2022-07-02] MEDS: QUEtiapine FUMARATE 25 MG TAB PO SCH (19:54)
[2022-07-02] MEDS: RAMELTEON 8 MG TAB (ROZEREM) PO PRN (19:54)
[2022-07-03 06:00] VITALS: BP 118/71
[2022-07-03 06:36] LABS: BLOOD UREA NITROGEN 18 MG/DL (7-18); CARBON DIOXIDE LEVEL 31 MEQ/L (21-32); CHLORIDE LEVEL 105 MEQ/L (98-107); CREATININE FOR GFR 0.82 MG/DL (0.55-1.30); GLOMERULAR FILTRATION RATE > 60.0 (>32); GLUCOSE, FASTING 123 MG/DL (70-100); MAGNESIUM LEVEL 2.4 MG/DL (1.8-2.4); POTASSIUM SERUM 4.2 MEQ/L (3.5-5.1); SODIUM LEVEL 138 MEQ/L (136-145)
[2022-07-03] MEDS: DIMETHICONE 2% OINTMENT(VANICREAM) 70GM TUBE TOP SCH ×2 (08:48→19:52)
[2022-07-03] MEDS: FUROSEMIDE 20 MG TAB PO SCH (08:48)
[2022-07-03] MEDS: ENOXAPARIN 40MG/0.4ML SYRINGE (J1650 PER 10MG) SC SCH (08:48)
[2022-07-03] MEDS: RAMELTEON 8 MG TAB (ROZEREM) PO PRN (19:52)
[2022-07-03] MEDS: QUEtiapine FUMARATE 25 MG TAB PO SCH (19:52)
[2022-07-04 05:27] VITALS: BP 122/70
[2022-07-04 07:38] LABS: BLOOD UREA NITROGEN 20 MG/DL (7-18); CALCIUM LEVEL 9.5 MG/DL (8.8-10.2); CARBON DIOXIDE LEVEL 31 MEQ/L (21-32); CHLORIDE LEVEL 106 MEQ/L (98-107); CREATININE FOR GFR 0.82 MG/DL (0.55-1.30); GLOMERULAR FILTRATION RATE > 60.0 (>32); GLUCOSE, FASTING 98 MG/DL (70-100); MAGNESIUM LEVEL 2.5 MG/DL (1.8-2.4); POTASSIUM SERUM 4.2 MEQ/L (3.5-5.1); SODIUM LEVEL 138 MEQ/L (136-145)
[2022-07-04] MEDS: FUROSEMIDE 20 MG TAB PO SCH (09:09)
[2022-07-04] MEDS: DIMETHICONE 2% OINTMENT(VANICREAM) 70GM TUBE TOP SCH ×2 (09:09→20:07)
[2022-07-04] MEDS: ENOXAPARIN 40MG/0.4ML SYRINGE (J1650 PER 10MG) SC SCH (09:09)
[2022-07-04 16:09] LABS: BASO # 0.1 10^3/uL (0.0-0.2); BASO % 0.5 % (0.0-1.0); EOS # 0.3 10^3/uL (0.0-0.5); EOS % 3.4 % (0.0-3.0); HEMATOCRIT 39.1 % (36.0-47.0); HEMOGLOBIN 12.4 g/dl (12.0-15.5); LYMPH # 1.3 10^3/uL (1.5-5.0); LYMPH % 14.5 % (24.0-44.0); MEAN CORPUSCULAR HEMOGLOBIN 29.2 pg (27.0-33.0); MEAN CORPUSCULAR HGB CONC 31.7 g/dl (32.0-36.5); MONO # 0.5 10^3/uL (0.0-0.8); MONO % 5.2 % (2.0-8.0); NEUTROPHILS # 6.9 10^3/uL (1.5-8.5); PLATELET COUNT, AUTOMATED 219 10^3/uL (150-450); RED BLOOD COUNT 4.25 10^6/uL (4.00-5.40); WHITE BLOOD COUNT 9.1 10^3/uL (4.0-10.0)
[2022-07-04] MEDS ORDERED: FUROSEMIDE 20 MG TAB PO SCH (17:00)
[2022-07-04] MEDS: DOXYCYCLINE HYCLATE 100MG TABLET PO SCH (17:44)
[2022-07-04] MEDS: FUROSEMIDE 40MG/4ML VIAL IV SCH (17:44)
[2022-07-04 20:01] LABS: APPEARANCE, URINE MANUAL CLEAR (CLEAR); COLOR, URINE MANUAL LT YELLOW (YELLOW)
[2022-07-04 20:02] LABS: BILIRUBIN, URINE MANUAL NEGATIVE (NEGATIVE); BLOOD URINE MANUAL NEGATIVE (NEGATIVE); GLUCOSE, URINE (UA) MANUAL NEGATIVE (NEGATIVE); KETONE, URINE MANUAL NEGATIVE (NEGATIVE); LEUKOCYTE ESTERASE, URINE MAN NEGATIVE (NEGATIVE); NITRITE, URINE MANUAL NEGATIVE (NEGATIVE); PH,URINE MAN 5.5 UNITS (5.0 - 7.0); PROTEIN, URINE MANUAL NEGATIVE (NEGATIVE); UROBILINOGEN, URINE MANUAL NORMAL (NORMAL)
[2022-07-04] MEDS: QUEtiapine FUMARATE 25 MG TAB PO SCH (20:07)
[2022-07-04 21:57] VITALS: BP 152/85
[2022-07-05] MEDS: DOXYCYCLINE HYCLATE 100MG TABLET PO SCH (06:07)
[2022-07-05 06:22] LABS: BASO # 0.1 10^3/uL (0.0-0.2); EOS # 0.2 10^3/uL (0.0-0.5); EOS % 3.5 % (0.0-3.0); HEMATOCRIT 36.6 % (36.0-47.0); LYMPH # 1.4 10^3/uL (1.5-5.0); LYMPH % 22.5 % (24.0-44.0); MEAN CORPUSCULAR HEMOGLOBIN 29.6 pg (27.0-33.0); MEAN CORPUSCULAR HGB CONC 32.8 g/dl (32.0-36.5); MEAN CORPUSCULAR VOLUME 90.4 fl (80.0-96.0); MONO # 0.6 10^3/uL (0.0-0.8); MONO % 10.4 % (2.0-8.0); NEUTROPHILS # 3.8 10^3/uL (1.5-8.5); NEUTROPHILS % 62.3 % (36.0-66.0); PLATELET COUNT, AUTOMATED 221 10^3/uL (150-450); RED BLOOD COUNT 4.05 10^6/uL (4.00-5.40); WHITE BLOOD COUNT 6.1 10^3/uL (4.0-10.0)
[2022-07-05 07:03] LABS: BLOOD UREA NITROGEN 19 MG/DL (7-18); CALCIUM LEVEL 9.5 MG/DL (8.8-10.2); CARBON DIOXIDE LEVEL 30 MEQ/L (21-32); CHLORIDE LEVEL 106 MEQ/L (98-107); CREATININE FOR GFR 0.82 MG/DL (0.55-1.30); GLOMERULAR FILTRATION RATE > 60.0 (>32); GLUCOSE, FASTING 88 MG/DL (70-100); MAGNESIUM LEVEL 2.4 MG/DL (1.8-2.4); SODIUM LEVEL 138 MEQ/L (136-145)
[2022-07-05] MEDS: ENOXAPARIN 40MG/0.4ML SYRINGE (J1650 PER 10MG) SC SCH (09:00)
[2022-07-05] MEDS: DIMETHICONE 2% OINTMENT(VANICREAM) 70GM TUBE TOP SCH ×2 (09:01→20:38)
[2022-07-05] MEDS: FUROSEMIDE 40MG/4ML VIAL IV SCH ×2 (09:11→16:33)
[2022-07-05 12:36] LABS: C REACTIVE PROTEIN QUANTITATIV 1.15 MG/DL (0.00-0.30)
[2022-07-05 13:47] LABS: ERYTHROCYTE SEDIMENTATION RATE 27 mm/hr (0-30)
[2022-07-05] MEDS: KETOCONAZOLE 2% CREAM TOP SCH (15:04)
[2022-07-05 16:42] VITALS: BP 127/75
[2022-07-05] MEDS: QUEtiapine FUMARATE 25 MG TAB PO SCH (20:37)
[2022-07-05 20:45] VITALS: BP 165/77
[2022-07-06 06:00] VITALS: BP 150/87
[2022-07-06 06:14] LABS: BASO # 0.1 10^3/uL (0.0-0.2); EOS # 0.3 10^3/uL (0.0-0.5); HEMATOCRIT 35.3 % (36.0-47.0); HEMOGLOBIN 11.7 g/dl (12.0-15.5); LYMPH # 1.6 10^3/uL (1.5-5.0); LYMPH % 31.2 % (24.0-44.0); MEAN CORPUSCULAR HEMOGLOBIN 30.2 pg (27.0-33.0); MEAN CORPUSCULAR HGB CONC 33.1 g/dl (32.0-36.5); MEAN CORPUSCULAR VOLUME 91.2 fl (80.0-96.0); MONO # 0.6 10^3/uL (0.0-0.8); MONO % 12.4 % (2.0-8.0); NEUTROPHILS # 2.5 10^3/uL (1.5-8.5); PLATELET COUNT, AUTOMATED 218 10^3/uL (150-450); RED BLOOD COUNT 3.87 10^6/uL (4.00-5.40); WHITE BLOOD COUNT 5.2 10^3/uL (4.0-10.0)
[2022-07-06 06:37] LABS: CALCIUM LEVEL 9.3 MG/DL (8.8-10.2); CREATININE FOR GFR 0.96 MG/DL (0.55-1.30); GLOMERULAR FILTRATION RATE 59.5 (>32); MAGNESIUM LEVEL 2.4 MG/DL (1.8-2.4); POTASSIUM SERUM 3.7 MEQ/L (3.5-5.1)
[2022-07-06] MEDS: FUROSEMIDE 40MG/4ML VIAL IV SCH ×2 (09:00→09:30)
[2022-07-06] MEDS: ENOXAPARIN 40MG/0.4ML SYRINGE (J1650 PER 10MG) SC SCH (09:00)
[2022-07-06 09:20] VITALS: BP 105/65
[2022-07-06] MEDS: DIMETHICONE 2% OINTMENT(VANICREAM) 70GM TUBE TOP SCH ×2 (09:21→21:51)
[2022-07-06] MEDS: KETOCONAZOLE 2% CREAM TOP SCH (09:21)
[2022-07-06 14:00] VITALS: BP 111/65
[2022-07-06] MEDS: FUROSEMIDE 40 MG TAB PO SCH (16:27)
[2022-07-06 21:13] VITALS: BP 123/76
[2022-07-06] MEDS: RAMELTEON 8 MG TAB (ROZEREM) PO PRN (21:50)
[2022-07-06] MEDS: QUEtiapine FUMARATE 25 MG TAB PO SCH (21:50)
[2022-07-07 06:00] VITALS: BP 102/60
[2022-07-07 08:53] LABS: BASO # 0.1 10^3/uL (0.0-0.2); BASO % 1.2 % (0.0-1.0); EOS # 0.3 10^3/uL (0.0-0.5); EOS % 5.6 % (0.0-3.0); HEMATOCRIT 34.7 % (36.0-47.0); HEMOGLOBIN 11.2 g/dl (12.0-15.5); LYMPH # 1.4 10^3/uL (1.5-5.0); LYMPH % 26.7 % (24.0-44.0); MEAN CORPUSCULAR HEMOGLOBIN 29.2 pg (27.0-33.0); MEAN CORPUSCULAR HGB CONC 32.3 g/dl (32.0-36.5); MEAN CORPUSCULAR VOLUME 90.6 fl (80.0-96.0); MONO # 0.6 10^3/uL (0.0-0.8); MONO % 10.8 % (2.0-8.0); NEUTROPHILS # 2.9 10^3/uL (1.5-8.5); NEUTROPHILS % 55.3 % (36.0-66.0); PLATELET COUNT, AUTOMATED 216 10^3/uL (150-450); RED BLOOD COUNT 3.83 10^6/uL (4.00-5.40); WHITE BLOOD COUNT 5.2 10^3/uL (4.0-10.0)
[2022-07-07] MEDS: FUROSEMIDE 40 MG TAB PO SCH ×2 (08:53→17:18)
[2022-07-07] MEDS: DIMETHICONE 2% OINTMENT(VANICREAM) 70GM TUBE TOP SCH ×2 (08:53→19:56)
[2022-07-07] MEDS: KETOCONAZOLE 2% CREAM TOP SCH (08:53)
[2022-07-07] MEDS: ENOXAPARIN 40MG/0.4ML SYRINGE (J1650 PER 10MG) SC SCH (08:53)
[2022-07-07 09:22] LABS: BLOOD UREA NITROGEN 21 MG/DL (7-18); CALCIUM LEVEL 9.1 MG/DL (8.8-10.2); CARBON DIOXIDE LEVEL 28 MEQ/L (21-32); CHLORIDE LEVEL 107 MEQ/L (98-107); CREATININE FOR GFR 0.88 MG/DL (0.55-1.30); GLOMERULAR FILTRATION RATE > 60.0 (>32); GLUCOSE, FASTING 106 MG/DL (70-100); MAGNESIUM LEVEL 2.3 MG/DL (1.8-2.4); POTASSIUM SERUM 3.8 MEQ/L (3.5-5.1); SODIUM LEVEL 140 MEQ/L (136-145)
[2022-07-07 17:19] VITALS: BP 130/74
[2022-07-07] MEDS: QUEtiapine FUMARATE 25 MG TAB PO SCH (19:55)
[2022-07-07 20:00] VITALS: BP 132/77
[2022-07-07] MEDS: RAMELTEON 8 MG TAB (ROZEREM) PO PRN (21:16)
[2022-07-08 06:15] LABS: BASO % 0.9 % (0.0-1.0); EOS # 0.3 10^3/uL (0.0-0.5); EOS % 6.5 % (0.0-3.0); HEMATOCRIT 35.3 % (36.0-47.0); HEMOGLOBIN 11.6 g/dl (12.0-15.5); LYMPH # 1.5 10^3/uL (1.5-5.0); LYMPH % 34.4 % (24.0-44.0); MEAN CORPUSCULAR HEMOGLOBIN 29.8 pg (27.0-33.0); MEAN CORPUSCULAR HGB CONC 32.9 g/dl (32.0-36.5); MEAN CORPUSCULAR VOLUME 90.7 fl (80.0-96.0); MONO # 0.5 10^3/uL (0.0-0.8); MONO % 10.8 % (2.0-8.0); NEUTROPHILS # 2.1 10^3/uL (1.5-8.5); PLATELET COUNT, AUTOMATED 207 10^3/uL (150-450); RED BLOOD COUNT 3.89 10^6/uL (4.00-5.40); WHITE BLOOD COUNT 4.5 10^3/uL (4.0-10.0)
[2022-07-08 06:27] VITALS: BP 130/80
[2022-07-08 06:43] LABS: BLOOD UREA NITROGEN 23 MG/DL (7-18); CALCIUM LEVEL 9.3 MG/DL (8.8-10.2); CARBON DIOXIDE LEVEL 33 MEQ/L (21-32); CHLORIDE LEVEL 105 MEQ/L (98-107); CREATININE FOR GFR 0.83 MG/DL (0.55-1.30); GLOMERULAR FILTRATION RATE > 60.0 (>32); GLUCOSE, FASTING 89 MG/DL (70-100); MAGNESIUM LEVEL 2.5 MG/DL (1.8-2.4); SODIUM LEVEL 140 MEQ/L (136-145)
[2022-07-08] MEDS: KETOCONAZOLE 2% CREAM TOP SCH (11:24)
[2022-07-08] MEDS: FUROSEMIDE 40 MG TAB PO SCH (11:24)
[2022-07-08] MEDS: ENOXAPARIN 40MG/0.4ML SYRINGE (J1650 PER 10MG) SC SCH (11:25)
[2022-07-08] MEDS: DIMETHICONE 2% OINTMENT(VANICREAM) 70GM TUBE TOP SCH ×2 (11:25→19:56)
[2022-07-08] MEDS: QUEtiapine FUMARATE 25 MG TAB PO SCH (19:56)
[2022-07-08] MEDS: RAMELTEON 8 MG TAB (ROZEREM) PO PRN (19:56)
[2022-07-09 07:28] LABS: BLOOD UREA NITROGEN 24 MG/DL (7-18); CALCIUM LEVEL 9.3 MG/DL (8.8-10.2); CARBON DIOXIDE LEVEL 32 MEQ/L (21-32); CHLORIDE LEVEL 105 MEQ/L (98-107); CREATININE FOR GFR 0.76 MG/DL (0.55-1.30); GLOMERULAR FILTRATION RATE > 60.0 (>32); GLUCOSE, FASTING 90 MG/DL (70-100); POTASSIUM SERUM 4.3 MEQ/L (3.5-5.1); SODIUM LEVEL 139 MEQ/L (136-145)
[2022-07-09] MEDS: ENOXAPARIN 40MG/0.4ML SYRINGE (J1650 PER 10MG) SC SCH (09:00)
[2022-07-09] MEDS: DIMETHICONE 2% OINTMENT(VANICREAM) 70GM TUBE TOP SCH ×2 (09:15→20:00)
[2022-07-09] MEDS: FUROSEMIDE 40 MG TAB PO SCH (09:15)
[2022-07-09] MEDS: KETOCONAZOLE 2% CREAM TOP SCH (09:15)
[2022-07-09] MEDS: QUEtiapine FUMARATE 25 MG TAB PO SCH (20:00)
[2022-07-09] MEDS: RAMELTEON 8 MG TAB (ROZEREM) PO PRN (20:00)
[2022-07-10] MEDS: ENOXAPARIN 40MG/0.4ML SYRINGE (J1650 PER 10MG) SC SCH (09:00)
[2022-07-10] MEDS: DIMETHICONE 2% OINTMENT(VANICREAM) 70GM TUBE TOP SCH ×2 (09:00→20:19)
[2022-07-10] MEDS: KETOCONAZOLE 2% CREAM TOP SCH (09:00)
[2022-07-10] MEDS: FUROSEMIDE 40 MG TAB PO SCH (13:33)
[2022-07-10] MEDS: QUEtiapine FUMARATE 25 MG TAB PO SCH (20:18)
[2022-07-10] MEDS: RAMELTEON 8 MG TAB (ROZEREM) PO PRN (20:18)
[2022-07-11 06:00] VITALS: BP 136/74
[2022-07-11 06:51] LABS: BLOOD UREA NITROGEN 25 MG/DL (7-18); CALCIUM LEVEL 9.3 MG/DL (8.8-10.2); CARBON DIOXIDE LEVEL 32 MEQ/L (21-32); CHLORIDE LEVEL 108 MEQ/L (98-107); CREATININE FOR GFR 0.85 MG/DL (0.55-1.30); GLOMERULAR FILTRATION RATE > 60.0 (>32); GLUCOSE, FASTING 96 MG/DL (70-100); POTASSIUM SERUM 4.3 MEQ/L (3.5-5.1); SODIUM LEVEL 143 MEQ/L (136-145)
[2022-07-11] MEDS: FUROSEMIDE 40 MG TAB PO SCH (09:16)
[2022-07-11] MEDS: ENOXAPARIN 40MG/0.4ML SYRINGE (J1650 PER 10MG) SC SCH (09:16)
[2022-07-11] MEDS: DIMETHICONE 2% OINTMENT(VANICREAM) 70GM TUBE TOP SCH ×2 (09:16→20:24)
[2022-07-11] MEDS: KETOCONAZOLE 2% CREAM TOP SCH (09:16)
[2022-07-11 09:18] VITALS: BP 121/72
[2022-07-11] MEDS: QUEtiapine FUMARATE 25 MG TAB PO SCH (20:23)
[2022-07-11] MEDS: RAMELTEON 8 MG TAB (ROZEREM) PO PRN (20:23)
[2022-07-12 05:00] VITALS: BP 134/63
[2022-07-12] MEDS: KETOCONAZOLE 2% CREAM TOP SCH (08:56)
[2022-07-12] MEDS: DIMETHICONE 2% OINTMENT(VANICREAM) 70GM TUBE TOP SCH ×2 (08:56→20:15)
[2022-07-12] MEDS: FUROSEMIDE 40 MG TAB PO SCH (08:56)
[2022-07-12] MEDS: ENOXAPARIN 40MG/0.4ML SYRINGE (J1650 PER 10MG) SC SCH (08:57)
[2022-07-12 08:58] VITALS: BP 124/70
[2022-07-12] MEDS: RAMELTEON 8 MG TAB (ROZEREM) PO PRN (20:15)
[2022-07-12] MEDS: QUEtiapine FUMARATE 25 MG TAB PO SCH (20:15)
[2022-07-13 05:00] VITALS: BP 107/45
[2022-07-13] MEDS: FUROSEMIDE 40 MG TAB PO SCH (09:00)
[2022-07-13] MEDS: ENOXAPARIN 40MG/0.4ML SYRINGE (J1650 PER 10MG) SC SCH (10:33)
[2022-07-13] MEDS: DIMETHICONE 2% OINTMENT(VANICREAM) 70GM TUBE TOP SCH ×2 (10:34→19:57)
[2022-07-13] MEDS: KETOCONAZOLE 2% CREAM TOP SCH (10:34)
[2022-07-13 10:35] VITALS: BP 108/62
[2022-07-13] MEDS: QUEtiapine FUMARATE 25 MG TAB PO SCH (19:56)
[2022-07-13] MEDS: RAMELTEON 8 MG TAB (ROZEREM) PO PRN (19:56)
[2022-07-14 06:00] VITALS: BP 131/76
[2022-07-14 08:32] VITALS: BP 113/65
[2022-07-14] MEDS: FUROSEMIDE 40 MG TAB PO SCH (08:33)
[2022-07-14] MEDS: KETOCONAZOLE 2% CREAM TOP SCH (08:34)
[2022-07-14] MEDS: ENOXAPARIN 40MG/0.4ML SYRINGE (J1650 PER 10MG) SC SCH (08:34)
[2022-07-14] MEDS: DIMETHICONE 2% OINTMENT(VANICREAM) 70GM TUBE TOP SCH ×2 (08:34→20:04)
[2022-07-14] MEDS: QUEtiapine FUMARATE 25 MG TAB PO SCH (20:04)
[2022-07-14] MEDS: RAMELTEON 8 MG TAB (ROZEREM) PO PRN (21:32)
[2022-07-15 06:00] VITALS: BP 117/78
[2022-07-15] MEDS: FUROSEMIDE 40 MG TAB PO SCH (08:06)
[2022-07-15] MEDS: ENOXAPARIN 40MG/0.4ML SYRINGE (J1650 PER 10MG) SC SCH ×2 (08:06→08:12)
[2022-07-15] MEDS: KETOCONAZOLE 2% CREAM TOP SCH (08:06)
[2022-07-15] MEDS: DIMETHICONE 2% OINTMENT(VANICREAM) 70GM TUBE TOP SCH ×2 (08:06→20:00)
[2022-07-15] MEDS: QUEtiapine FUMARATE 25 MG TAB PO SCH (20:00)
[2022-07-15] MEDS: RAMELTEON 8 MG TAB (ROZEREM) PO PRN (20:00)
[2022-07-16 06:00] VITALS: BP 122/68
[2022-07-16] MEDS: FUROSEMIDE 40 MG TAB PO SCH (10:16)
[2022-07-16] MEDS: ENOXAPARIN 40MG/0.4ML SYRINGE (J1650 PER 10MG) SC SCH (10:17)
[2022-07-16 10:18] VITALS: BP 108/53
[2022-07-16] MEDS: KETOCONAZOLE 2% CREAM TOP SCH (10:19)
[2022-07-16] MEDS: DIMETHICONE 2% OINTMENT(VANICREAM) 70GM TUBE TOP SCH ×2 (10:20→20:22)
[2022-07-16] MEDS: QUEtiapine FUMARATE 25 MG TAB PO SCH (20:22)
[2022-07-16] MEDS: RAMELTEON 8 MG TAB (ROZEREM) PO PRN (20:22)
[2022-07-17] MEDS: KETOCONAZOLE 2% CREAM TOP SCH (08:17)
[2022-07-17] MEDS: FUROSEMIDE 40 MG TAB PO SCH (08:17)
[2022-07-17] MEDS: DIMETHICONE 2% OINTMENT(VANICREAM) 70GM TUBE TOP SCH ×2 (08:17→20:16)
[2022-07-17 08:18] VITALS: BP 116/65
[2022-07-17] MEDS: ENOXAPARIN 40MG/0.4ML SYRINGE (J1650 PER 10MG) SC SCH (08:20)
[2022-07-17] MEDS: RAMELTEON 8 MG TAB (ROZEREM) PO PRN (20:16)
[2022-07-17] MEDS: QUEtiapine FUMARATE 12.5 MG HALF-TAB PO SCH (20:16)
[2022-07-18 05:27] VITALS: BP 137/80
[2022-07-18] MEDS: FUROSEMIDE 40 MG TAB PO SCH (09:12)
[2022-07-18] MEDS: KETOCONAZOLE 2% CREAM TOP SCH (09:12)
[2022-07-18] MEDS: ENOXAPARIN 40MG/0.4ML SYRINGE (J1650 PER 10MG) SC SCH (09:12)
[2022-07-18] MEDS: DIMETHICONE 2% OINTMENT(VANICREAM) 70GM TUBE TOP SCH ×2 (09:12→20:50)
[2022-07-18] MEDS: RAMELTEON 8 MG TAB (ROZEREM) PO PRN (20:50)
[2022-07-18] MEDS: QUEtiapine FUMARATE 12.5 MG HALF-TAB PO SCH (20:50)
[2022-07-19 06:10] VITALS: BP 122/57
[2022-07-19] MEDS: DIMETHICONE 2% OINTMENT(VANICREAM) 70GM TUBE TOP SCH ×2 (09:45→20:14)
[2022-07-19] MEDS: ENOXAPARIN 40MG/0.4ML SYRINGE (J1650 PER 10MG) SC SCH (09:45)
[2022-07-19] MEDS: FUROSEMIDE 40 MG TAB PO SCH (09:45)
[2022-07-19] MEDS: QUEtiapine FUMARATE 12.5 MG HALF-TAB PO SCH (20:14)
[2022-07-19] MEDS: RAMELTEON 8 MG TAB (ROZEREM) PO PRN (20:14)
[2022-07-20 06:00] VITALS: BP 130/75
[2022-07-20] MEDS: FUROSEMIDE 40 MG TAB PO SCH (11:49)
[2022-07-20] MEDS: ENOXAPARIN 40MG/0.4ML SYRINGE (J1650 PER 10MG) SC SCH (11:50)
[2022-07-20] MEDS: DIMETHICONE 2% OINTMENT(VANICREAM) 70GM TUBE TOP SCH ×2 (11:53→20:26)
[2022-07-20] MEDS: RAMELTEON 8 MG TAB (ROZEREM) PO PRN (20:26)
[2022-07-20] MEDS: QUEtiapine FUMARATE 12.5 MG HALF-TAB PO SCH (20:26)
[2022-07-21 05:57] VITALS: BP 120/70
[2022-07-21] MEDS: FUROSEMIDE 40 MG TAB PO SCH (09:08)
[2022-07-21] MEDS: ENOXAPARIN 40MG/0.4ML SYRINGE (J1650 PER 10MG) SC SCH (09:10)
[2022-07-21] MEDS: DIMETHICONE 2% OINTMENT(VANICREAM) 70GM TUBE TOP SCH ×2 (09:10→20:20)
[2022-07-21] MEDS: RAMELTEON 8 MG TAB (ROZEREM) PO PRN (20:20)
[2022-07-21] MEDS: QUEtiapine FUMARATE 12.5 MG HALF-TAB PO SCH (20:20)
[2022-07-22] MEDS: FUROSEMIDE 40 MG TAB PO SCH (08:48)
[2022-07-22] MEDS: DIMETHICONE 2% OINTMENT(VANICREAM) 70GM TUBE TOP SCH ×2 (08:48→19:58)
[2022-07-22] MEDS: ENOXAPARIN 40MG/0.4ML SYRINGE (J1650 PER 10MG) SC SCH (08:48)
[2022-07-22 08:49] VITALS: BP 130/91
[2022-07-22] MEDS: QUEtiapine FUMARATE 12.5 MG HALF-TAB PO SCH (19:58)
[2022-07-22] MEDS: RAMELTEON 8 MG TAB (ROZEREM) PO PRN (19:58)
[2022-07-23 05:45] VITALS: BP 108/56
[2022-07-23] MEDS: DIMETHICONE 2% OINTMENT(VANICREAM) 70GM TUBE TOP SCH ×2 (09:09→20:07)
[2022-07-23] MEDS: ENOXAPARIN 40MG/0.4ML SYRINGE (J1650 PER 10MG) SC SCH (09:09)
[2022-07-23] MEDS: FUROSEMIDE 40 MG TAB PO SCH (09:10)
[2022-07-23] MEDS: CALCIUM/VITAMIN D 500 MG TAB PO SCH (20:06)
[2022-07-23] MEDS: RAMELTEON 8 MG TAB (ROZEREM) PO PRN (20:06)
[2022-07-23] MEDS: QUEtiapine FUMARATE 12.5 MG HALF-TAB PO SCH (20:06)
[2022-07-24] MEDS: DIMETHICONE 2% OINTMENT(VANICREAM) 70GM TUBE TOP SCH ×2 (08:51→19:59)
[2022-07-24] MEDS: FUROSEMIDE 40 MG TAB PO SCH (08:51)
[2022-07-24] MEDS: ENOXAPARIN 40MG/0.4ML SYRINGE (J1650 PER 10MG) SC SCH (08:51)
[2022-07-24] MEDS: CALCIUM/VITAMIN D 500 MG TAB PO SCH ×3 (08:51→20:00)
[2022-07-24] MEDS: QUEtiapine FUMARATE 12.5 MG HALF-TAB PO SCH (20:00)
[2022-07-24] MEDS: RAMELTEON 8 MG TAB (ROZEREM) PO PRN (20:00)
[2022-07-25 06:00] VITALS: BP 154/89
[2022-07-25] MEDS: CALCIUM/VITAMIN D 500 MG TAB PO SCH ×3 (11:03→20:20)
[2022-07-25] MEDS: ENOXAPARIN 40MG/0.4ML SYRINGE (J1650 PER 10MG) SC SCH (11:03)
[2022-07-25] MEDS: DIMETHICONE 2% OINTMENT(VANICREAM) 70GM TUBE TOP SCH ×2 (11:04→20:20)
[2022-07-25] MEDS: FUROSEMIDE 40 MG TAB PO SCH (11:07)
[2022-07-25] MEDS: MIRALAX *UNIT DOSE* 17GM PACKET PO SCH (18:53)
[2022-07-25] MEDS: METAMUCIL (PSYLLIUM) PACKET PO SCH (19:55)
[2022-07-25] MEDS: QUEtiapine FUMARATE 12.5 MG HALF-TAB PO SCH (20:20)
[2022-07-25] MEDS: RAMELTEON 8 MG TAB (ROZEREM) PO PRN (20:20)
[2022-07-26 06:00] VITALS: BP 129/71
[2022-07-26] MEDS: ENOXAPARIN 40MG/0.4ML SYRINGE (J1650 PER 10MG) SC SCH (08:04)
[2022-07-26] MEDS: MIRALAX *UNIT DOSE* 17GM PACKET PO SCH (08:04)
[2022-07-26] MEDS: CALCIUM/VITAMIN D 500 MG TAB PO SCH ×3 (08:04→20:22)
[2022-07-26] MEDS: METAMUCIL (PSYLLIUM) PACKET PO SCH (08:04)
[2022-07-26] MEDS: FUROSEMIDE 40 MG TAB PO SCH (08:05)
[2022-07-26] MEDS: DIMETHICONE 2% OINTMENT(VANICREAM) 70GM TUBE TOP SCH ×2 (08:05→20:22)
[2022-07-26] MEDS: QUEtiapine FUMARATE 12.5 MG HALF-TAB PO SCH (20:22)
[2022-07-26] MEDS: RAMELTEON 8 MG TAB (ROZEREM) PO PRN (20:22)
[2022-07-27 06:00] VITALS: BP 144/79
[2022-07-27] MEDS: ENOXAPARIN 40MG/0.4ML SYRINGE (J1650 PER 10MG) SC SCH ×2 (09:00→09:21)
[2022-07-27] MEDS: METAMUCIL (PSYLLIUM) PACKET PO SCH (09:20)
[2022-07-27] MEDS: MIRALAX *UNIT DOSE* 17GM PACKET PO SCH (09:20)
[2022-07-27] MEDS: DIMETHICONE 2% OINTMENT(VANICREAM) 70GM TUBE TOP SCH ×2 (09:21→20:20)
[2022-07-27] MEDS: CALCIUM/VITAMIN D 500 MG TAB PO SCH ×3 (09:21→20:20)
[2022-07-27] MEDS: FUROSEMIDE 40 MG TAB PO SCH (09:21)
[2022-07-27] MEDS: QUEtiapine FUMARATE 12.5 MG HALF-TAB PO SCH (20:19)
[2022-07-27] MEDS: RAMELTEON 8 MG TAB (ROZEREM) PO PRN (20:19)
[2022-07-28 06:18] VITALS: BP 140/72
[2022-07-28 06:36] LABS: HEMATOCRIT 36.2 % (36.0-47.0); HEMOGLOBIN 11.8 g/dl (12.0-15.5); MEAN CORPUSCULAR HEMOGLOBIN 30.2 pg (27.0-33.0); MEAN CORPUSCULAR HGB CONC 32.6 g/dl (32.0-36.5); MEAN CORPUSCULAR VOLUME 92.6 fl (80.0-96.0); PLATELET COUNT, AUTOMATED 189 10^3/uL (150-450); RED BLOOD COUNT 3.91 10^6/uL (4.00-5.40); WHITE BLOOD COUNT 4.7 10^3/uL (4.0-10.0)
[2022-07-28 07:07] LABS: ALBUMIN 3.4 GM/DL (3.2-5.2); ALKALINE PHOSPHATASE 48 U/L (45-117); ALT/SGPT 21 U/L (12-78); AST/SGOT 14 U/L (7-37); BILIRUBIN,TOTAL 0.5 MG/DL (0.2-1.0); BLOOD UREA NITROGEN 16 MG/DL (7-18); CALCIUM LEVEL 9.4 MG/DL (8.8-10.2); CARBON DIOXIDE LEVEL 31 MEQ/L (21-32); CHLORIDE LEVEL 108 MEQ/L (98-107); CREATININE FOR GFR 0.83 MG/DL (0.55-1.30); GLOMERULAR FILTRATION RATE > 60.0 (>32); GLUCOSE, FASTING 92 MG/DL (70-100); MAGNESIUM LEVEL 2.3 MG/DL (1.8-2.4); POTASSIUM SERUM 4.2 MEQ/L (3.5-5.1); SODIUM LEVEL 142 MEQ/L (136-145); TOTAL PROTEIN 5.9 GM/DL (6.4-8.2)
[2022-07-28] MEDS: CALCIUM/VITAMIN D 500 MG TAB PO SCH ×4 (08:46→20:00)
[2022-07-28] MEDS: FUROSEMIDE 40 MG TAB PO SCH ×2 (08:46→08:49)
[2022-07-28] MEDS: MIRALAX *UNIT DOSE* 17GM PACKET PO SCH ×2 (08:46→08:49)
[2022-07-28] MEDS: METAMUCIL (PSYLLIUM) PACKET PO SCH ×2 (08:46→08:49)
[2022-07-28] MEDS: DIMETHICONE 2% OINTMENT(VANICREAM) 70GM TUBE TOP SCH ×2 (08:47→20:00)
[2022-07-28] MEDS: ENOXAPARIN 40MG/0.4ML SYRINGE (J1650 PER 10MG) SC SCH ×2 (08:47→08:50)
[2022-07-28] MEDS: RAMELTEON 8 MG TAB (ROZEREM) PO PRN (19:58)
[2022-07-28] MEDS: QUEtiapine FUMARATE 12.5 MG HALF-TAB PO SCH (20:00)
[2022-07-29 06:33] VITALS: BP 132/84
[2022-07-29] MEDS: MIRALAX *UNIT DOSE* 17GM PACKET PO SCH (08:30)
[2022-07-29] MEDS: METAMUCIL (PSYLLIUM) PACKET PO SCH (08:30)
[2022-07-29] MEDS: DIMETHICONE 2% OINTMENT(VANICREAM) 70GM TUBE TOP SCH ×2 (08:30→20:24)
[2022-07-29] MEDS: CALCIUM/VITAMIN D 500 MG TAB PO SCH ×3 (08:30→20:23)
[2022-07-29] MEDS: ENOXAPARIN 40MG/0.4ML SYRINGE (J1650 PER 10MG) SC SCH (08:30)
[2022-07-29] MEDS: FUROSEMIDE 40 MG TAB PO SCH (08:30)
[2022-07-29] MEDS: RAMELTEON 8 MG TAB (ROZEREM) PO PRN (20:23)
[2022-07-29] MEDS: QUEtiapine FUMARATE 12.5 MG HALF-TAB PO SCH (20:23)
[2022-07-30 04:30] VITALS: BP 134/81
[2022-07-30] MEDS: CALCIUM/VITAMIN D 500 MG TAB PO SCH ×3 (08:39→21:26)
[2022-07-30] MEDS: FUROSEMIDE 40 MG TAB PO SCH (08:40)
[2022-07-30] MEDS: MIRALAX *UNIT DOSE* 17GM PACKET PO SCH (08:40)
[2022-07-30] MEDS: METAMUCIL (PSYLLIUM) PACKET PO SCH (08:40)
[2022-07-30] MEDS: DIMETHICONE 2% OINTMENT(VANICREAM) 70GM TUBE TOP SCH ×2 (08:40→21:26)
[2022-07-30] MEDS: ENOXAPARIN 40MG/0.4ML SYRINGE (J1650 PER 10MG) SC SCH (08:51)
[2022-07-30] MEDS: RAMELTEON 8 MG TAB (ROZEREM) PO PRN (21:26)
[2022-07-30] MEDS: QUEtiapine FUMARATE 12.5 MG HALF-TAB PO SCH (21:26)
[2022-07-31 07:07] VITALS: BP 135/82
[2022-07-31] MEDS: CALCIUM/VITAMIN D 500 MG TAB PO SCH ×3 (08:26→21:22)
[2022-07-31] MEDS: MIRALAX *UNIT DOSE* 17GM PACKET PO SCH (08:26)
[2022-07-31] MEDS: METAMUCIL (PSYLLIUM) PACKET PO SCH (08:26)
[2022-07-31] MEDS: FUROSEMIDE 40 MG TAB PO SCH (08:26)
[2022-07-31] MEDS: DIMETHICONE 2% OINTMENT(VANICREAM) 70GM TUBE TOP SCH ×2 (08:27→21:22)
[2022-07-31] MEDS: ENOXAPARIN 40MG/0.4ML SYRINGE (J1650 PER 10MG) SC SCH (08:27)
[2022-07-31] MEDS: QUEtiapine FUMARATE 12.5 MG HALF-TAB PO SCH (21:22)
[2022-07-31] MEDS: RAMELTEON 8 MG TAB (ROZEREM) PO PRN (21:22)
[2022-08-01 07:03] VITALS: BP 146/86
[2022-08-01] MEDS: METAMUCIL (PSYLLIUM) PACKET PO SCH (10:28)
[2022-08-01] MEDS: ENOXAPARIN 40MG/0.4ML SYRINGE (J1650 PER 10MG) SC SCH (10:29)
[2022-08-01] MEDS: MIRALAX *UNIT DOSE* 17GM PACKET PO SCH (10:29)
[2022-08-01] MEDS: FUROSEMIDE 40 MG TAB PO SCH (10:30)
[2022-08-01] MEDS: DIMETHICONE 2% OINTMENT(VANICREAM) 70GM TUBE TOP SCH ×2 (10:30→20:43)
[2022-08-01] MEDS: CALCIUM/VITAMIN D 500 MG TAB PO SCH ×3 (10:30→20:43)
[2022-08-01] MEDS: QUEtiapine FUMARATE 12.5 MG HALF-TAB PO SCH (20:43)
[2022-08-01] MEDS: RAMELTEON 8 MG TAB (ROZEREM) PO PRN (20:44)
[2022-08-02] MEDS: MIRALAX *UNIT DOSE* 17GM PACKET PO SCH (08:08)
[2022-08-02] MEDS: METAMUCIL (PSYLLIUM) PACKET PO SCH (08:08)
[2022-08-02] MEDS: CALCIUM/VITAMIN D 500 MG TAB PO SCH ×3 (08:08→20:49)
[2022-08-02] MEDS: DIMETHICONE 2% OINTMENT(VANICREAM) 70GM TUBE TOP SCH ×2 (08:09→20:49)
[2022-08-02] MEDS: ENOXAPARIN 40MG/0.4ML SYRINGE (J1650 PER 10MG) SC SCH ×2 (08:09→08:20)
[2022-08-02] MEDS: FUROSEMIDE 40 MG TAB PO SCH (08:10)
[2022-08-02] MEDS: QUEtiapine FUMARATE 12.5 MG HALF-TAB PO SCH (20:49)
[2022-08-02] MEDS: RAMELTEON 8 MG TAB (ROZEREM) PO PRN (20:49)
[2022-08-03] MEDS: METAMUCIL (PSYLLIUM) PACKET PO SCH (09:33)
[2022-08-03] MEDS: ENOXAPARIN 40MG/0.4ML SYRINGE (J1650 PER 10MG) SC SCH (09:33)
[2022-08-03] MEDS: MIRALAX *UNIT DOSE* 17GM PACKET PO SCH (09:33)
[2022-08-03] MEDS: CALCIUM/VITAMIN D 500 MG TAB PO SCH ×3 (09:33→20:53)
[2022-08-03 09:34] VITALS: BP 116/72
[2022-08-03] MEDS: FUROSEMIDE 40 MG TAB PO SCH (09:34)
[2022-08-03] MEDS: DIMETHICONE 2% OINTMENT(VANICREAM) 70GM TUBE TOP SCH ×2 (09:34→20:53)
[2022-08-03] MEDS: QUEtiapine FUMARATE 12.5 MG HALF-TAB PO SCH (20:52)
[2022-08-03] MEDS: RAMELTEON 8 MG TAB (ROZEREM) PO PRN (20:53)
[2022-08-04] MEDS: MIRALAX *UNIT DOSE* 17GM PACKET PO SCH (09:16)
[2022-08-04] MEDS: METAMUCIL (PSYLLIUM) PACKET PO SCH (09:16)
[2022-08-04] MEDS: FUROSEMIDE 40 MG TAB PO SCH (09:17)
[2022-08-04] MEDS: CALCIUM/VITAMIN D 500 MG TAB PO SCH ×3 (09:17→20:52)
[2022-08-04] MEDS: DIMETHICONE 2% OINTMENT(VANICREAM) 70GM TUBE TOP SCH ×2 (09:17→20:53)
[2022-08-04] MEDS: ENOXAPARIN 40MG/0.4ML SYRINGE (J1650 PER 10MG) SC SCH (09:17)
[2022-08-04] MEDS: QUEtiapine FUMARATE 12.5 MG HALF-TAB PO SCH (20:51)
[2022-08-04] MEDS: RAMELTEON 8 MG TAB (ROZEREM) PO PRN (20:51)
[2022-08-04 21:00] VITALS: BP 128/76
[2022-08-05 05:40] VITALS: BP 143/84
[2022-08-05] MEDS: DIMETHICONE 2% OINTMENT(VANICREAM) 70GM TUBE TOP SCH ×2 (09:00→21:08)
[2022-08-05] MEDS: CALCIUM/VITAMIN D 500 MG TAB PO SCH ×3 (11:42→20:03)
[2022-08-05] MEDS: FUROSEMIDE 40 MG TAB PO SCH (11:43)
[2022-08-05] MEDS: ENOXAPARIN 40MG/0.4ML SYRINGE (J1650 PER 10MG) SC SCH (11:43)
[2022-08-05] MEDS: METAMUCIL (PSYLLIUM) PACKET PO SCH (11:43)
[2022-08-05] MEDS: MIRALAX *UNIT DOSE* 17GM PACKET PO SCH (11:43)
[2022-08-05 14:00] VITALS: BP 90/54
[2022-08-05] MEDS: QUEtiapine FUMARATE 12.5 MG HALF-TAB PO SCH (20:03)
[2022-08-05] MEDS: RAMELTEON 8 MG TAB (ROZEREM) PO PRN (20:03)
[2022-08-06] MEDS: FUROSEMIDE 40 MG TAB PO SCH (10:07)
[2022-08-06] MEDS: METAMUCIL (PSYLLIUM) PACKET PO SCH (10:07)
[2022-08-06] MEDS: MIRALAX *UNIT DOSE* 17GM PACKET PO SCH (10:07)
[2022-08-06] MEDS: CALCIUM/VITAMIN D 500 MG TAB PO SCH ×3 (10:07→20:01)
[2022-08-06] MEDS: DIMETHICONE 2% OINTMENT(VANICREAM) 70GM TUBE TOP SCH ×2 (10:08→20:05)
[2022-08-06] MEDS: ENOXAPARIN 40MG/0.4ML SYRINGE (J1650 PER 10MG) SC SCH (10:08)
[2022-08-06 10:10] VITALS: BP 111/72
[2022-08-06] MEDS: QUEtiapine FUMARATE 12.5 MG HALF-TAB PO SCH (20:01)
[2022-08-06] MEDS: RAMELTEON 8 MG TAB (ROZEREM) PO PRN (20:01)
[2022-08-07 06:46] VITALS: BP 146/70
[2022-08-07] MEDS: CALCIUM/VITAMIN D 500 MG TAB PO SCH ×3 (07:49→20:37)
[2022-08-07] MEDS: MIRALAX *UNIT DOSE* 17GM PACKET PO SCH (07:49)
[2022-08-07] MEDS: METAMUCIL (PSYLLIUM) PACKET PO SCH (07:49)
[2022-08-07] MEDS: FUROSEMIDE 40 MG TAB PO SCH (07:49)
[2022-08-07] MEDS: DIMETHICONE 2% OINTMENT(VANICREAM) 70GM TUBE TOP SCH ×2 (07:49→20:38)
[2022-08-07] MEDS: ENOXAPARIN 40MG/0.4ML SYRINGE (J1650 PER 10MG) SC SCH (07:50)
[2022-08-07] MEDS: RAMELTEON 8 MG TAB (ROZEREM) PO PRN (20:37)
[2022-08-07] MEDS: QUEtiapine FUMARATE 12.5 MG HALF-TAB PO SCH (20:37)
[2022-08-08 06:00] VITALS: BP_SYST 60
[2022-08-08 06:16] VITALS: BP 146/60
[2022-08-08] MEDS: MIRALAX *UNIT DOSE* 17GM PACKET PO SCH (09:00)
[2022-08-08] MEDS: ENOXAPARIN 40MG/0.4ML SYRINGE (J1650 PER 10MG) SC SCH (09:00)
[2022-08-08] MEDS: METAMUCIL (PSYLLIUM) PACKET PO SCH (09:00)
[2022-08-08] MEDS: CALCIUM/VITAMIN D 500 MG TAB PO SCH ×3 (11:18→20:43)
[2022-08-08] MEDS: FUROSEMIDE 40 MG TAB PO SCH (11:19)
[2022-08-08] MEDS: DIMETHICONE 2% OINTMENT(VANICREAM) 70GM TUBE TOP SCH ×2 (11:19→20:44)
[2022-08-08] MEDS: QUEtiapine FUMARATE 12.5 MG HALF-TAB PO SCH (20:43)
[2022-08-08] MEDS: RAMELTEON 8 MG TAB (ROZEREM) PO PRN (20:43)
[2022-08-09 06:00] VITALS: BP 127/66
[2022-08-09] MEDS: CALCIUM/VITAMIN D 500 MG TAB PO SCH ×3 (10:06→20:53)
[2022-08-09] MEDS: MIRALAX *UNIT DOSE* 17GM PACKET PO SCH (10:06)
[2022-08-09] MEDS: ENOXAPARIN 40MG/0.4ML SYRINGE (J1650 PER 10MG) SC SCH (10:07)
[2022-08-09] MEDS: FUROSEMIDE 40 MG TAB PO SCH (10:07)
[2022-08-09] MEDS: METAMUCIL (PSYLLIUM) PACKET PO SCH (10:08)
[2022-08-09] MEDS: DIMETHICONE 2% OINTMENT(VANICREAM) 70GM TUBE TOP SCH ×2 (10:08→20:58)
[2022-08-09] MEDS: QUEtiapine FUMARATE 12.5 MG HALF-TAB PO SCH (20:53)
[2022-08-09] MEDS: RAMELTEON 8 MG TAB (ROZEREM) PO PRN (20:59)
[2022-08-10] MEDS: CALCIUM/VITAMIN D 500 MG TAB PO SCH ×3 (10:35→20:16)
[2022-08-10] MEDS: METAMUCIL (PSYLLIUM) PACKET PO SCH (10:36)
[2022-08-10] MEDS: FUROSEMIDE 40 MG TAB PO SCH (10:36)
[2022-08-10] MEDS: MIRALAX *UNIT DOSE* 17GM PACKET PO SCH (10:36)
[2022-08-10] MEDS: ENOXAPARIN 40MG/0.4ML SYRINGE (J1650 PER 10MG) SC SCH (10:36)
[2022-08-10] MEDS: DIMETHICONE 2% OINTMENT(VANICREAM) 70GM TUBE TOP SCH ×2 (10:37→20:17)
[2022-08-10] MEDS: RAMELTEON 8 MG TAB (ROZEREM) PO PRN (20:16)
[2022-08-10] MEDS: QUEtiapine FUMARATE 12.5 MG HALF-TAB PO SCH (20:16)
[2022-08-11 05:38] VITALS: BP 148/96
[2022-08-11] MEDS: FUROSEMIDE 40 MG TAB PO SCH (08:30)
[2022-08-11] MEDS: ENOXAPARIN 40MG/0.4ML SYRINGE (J1650 PER 10MG) SC SCH (08:31)
[2022-08-11] MEDS: CALCIUM/VITAMIN D 500 MG TAB PO SCH ×3 (08:31→20:11)
[2022-08-11] MEDS: DIMETHICONE 2% OINTMENT(VANICREAM) 70GM TUBE TOP SCH ×2 (08:31→20:11)
[2022-08-11] MEDS: METAMUCIL (PSYLLIUM) PACKET PO SCH (08:31)
[2022-08-11] MEDS: MIRALAX *UNIT DOSE* 17GM PACKET PO SCH (08:32)
[2022-08-11] MEDS: RAMELTEON 8 MG TAB (ROZEREM) PO PRN (20:11)
[2022-08-11] MEDS: QUEtiapine FUMARATE 12.5 MG HALF-TAB PO SCH (20:11)
[2022-08-12] MEDS: ENOXAPARIN 40MG/0.4ML SYRINGE (J1650 PER 10MG) SC SCH (08:56)
[2022-08-12] MEDS: CALCIUM/VITAMIN D 500 MG TAB PO SCH ×3 (08:56→20:40)
[2022-08-12] MEDS: FUROSEMIDE 40 MG TAB PO SCH (08:56)
[2022-08-12] MEDS: METAMUCIL (PSYLLIUM) PACKET PO SCH (08:56)
[2022-08-12] MEDS: MIRALAX *UNIT DOSE* 17GM PACKET PO SCH (08:56)
[2022-08-12] MEDS: DIMETHICONE 2% OINTMENT(VANICREAM) 70GM TUBE TOP SCH ×2 (08:57→20:41)
[2022-08-12 09:30] VITALS: BP 119/82
[2022-08-12] MEDS: QUEtiapine FUMARATE 12.5 MG HALF-TAB PO SCH (20:40)
[2022-08-13 06:00] VITALS: BP 159/97
[2022-08-13] MEDS: MIRALAX *UNIT DOSE* 17GM PACKET PO SCH (10:23)
[2022-08-13] MEDS: CALCIUM/VITAMIN D 500 MG TAB PO SCH ×3 (10:23→20:06)
[2022-08-13] MEDS: METAMUCIL (PSYLLIUM) PACKET PO SCH (10:23)
[2022-08-13] MEDS: DIMETHICONE 2% OINTMENT(VANICREAM) 70GM TUBE TOP SCH ×2 (10:24→20:07)
[2022-08-13] MEDS: ENOXAPARIN 40MG/0.4ML SYRINGE (J1650 PER 10MG) SC SCH (10:29)
[2022-08-13] MEDS: FUROSEMIDE 40 MG TAB PO SCH (10:29)
[2022-08-13] MEDS: QUEtiapine FUMARATE 12.5 MG HALF-TAB PO SCH (20:06)
[2022-08-13] MEDS: RAMELTEON 8 MG TAB (ROZEREM) PO PRN (22:14)
[2022-08-14] MEDS: ENOXAPARIN 40MG/0.4ML SYRINGE (J1650 PER 10MG) SC SCH ×4 (09:00→10:07)
[2022-08-14] MEDS: MIRALAX *UNIT DOSE* 17GM PACKET PO SCH (09:54)
[2022-08-14] MEDS: METAMUCIL (PSYLLIUM) PACKET PO SCH (09:54)
[2022-08-14] MEDS: FUROSEMIDE 40 MG TAB PO SCH (09:54)
[2022-08-14] MEDS: CALCIUM/VITAMIN D 500 MG TAB PO SCH ×3 (09:54→20:20)
[2022-08-14] MEDS: DIMETHICONE 2% OINTMENT(VANICREAM) 70GM TUBE TOP SCH ×2 (09:54→20:21)
[2022-08-14] MEDS: QUEtiapine FUMARATE 12.5 MG HALF-TAB PO SCH (20:20)
[2022-08-14] MEDS: RAMELTEON 8 MG TAB (ROZEREM) PO PRN (20:20)
[2022-08-15 06:24] VITALS: BP 107/68
[2022-08-15] MEDS: MIRALAX *UNIT DOSE* 17GM PACKET PO SCH (09:41)
[2022-08-15] MEDS: CALCIUM/VITAMIN D 500 MG TAB PO SCH ×3 (09:41→20:00)
[2022-08-15] MEDS: METAMUCIL (PSYLLIUM) PACKET PO SCH (09:42)
[2022-08-15] MEDS: ENOXAPARIN 40MG/0.4ML SYRINGE (J1650 PER 10MG) SC SCH (09:42)
[2022-08-15] MEDS: DIMETHICONE 2% OINTMENT(VANICREAM) 70GM TUBE TOP SCH ×2 (09:43→20:00)
[2022-08-15] MEDS: FUROSEMIDE 40 MG TAB PO SCH (09:44)
[2022-08-15] MEDS: RAMELTEON 8 MG TAB (ROZEREM) PO PRN (20:00)
[2022-08-15] MEDS: QUEtiapine FUMARATE 12.5 MG HALF-TAB PO SCH (20:00)
[2022-08-16 06:00] VITALS: BP 131/72
[2022-08-16] MEDS: ENOXAPARIN 40MG/0.4ML SYRINGE (J1650 PER 10MG) SC SCH (09:21)
[2022-08-16] MEDS: CALCIUM/VITAMIN D 500 MG TAB PO SCH ×3 (09:21→20:25)
[2022-08-16] MEDS: METAMUCIL (PSYLLIUM) PACKET PO SCH (09:21)
[2022-08-16] MEDS: MIRALAX *UNIT DOSE* 17GM PACKET PO SCH (09:21)
[2022-08-16] MEDS: DIMETHICONE 2% OINTMENT(VANICREAM) 70GM TUBE TOP SCH ×2 (09:22→20:26)
[2022-08-16] MEDS: FUROSEMIDE 40 MG TAB PO SCH (09:22)
[2022-08-16] MEDS: RAMELTEON 8 MG TAB (ROZEREM) PO PRN (20:25)
[2022-08-16] MEDS: QUEtiapine FUMARATE 12.5 MG HALF-TAB PO SCH (20:25)
[2022-08-17 06:00] VITALS: BP 118/82
[2022-08-17] MEDS: FUROSEMIDE 40 MG TAB PO SCH (09:00)
[2022-08-17] MEDS: MIRALAX *UNIT DOSE* 17GM PACKET PO SCH (10:37)
[2022-08-17] MEDS: CALCIUM/VITAMIN D 500 MG TAB PO SCH ×3 (10:37→20:30)
[2022-08-17] MEDS: DIMETHICONE 2% OINTMENT(VANICREAM) 70GM TUBE TOP SCH ×2 (10:37→20:31)
[2022-08-17] MEDS: METAMUCIL (PSYLLIUM) PACKET PO SCH (10:37)
[2022-08-17] MEDS: ENOXAPARIN 40MG/0.4ML SYRINGE (J1650 PER 10MG) SC SCH (10:38)
[2022-08-17] MEDS: QUEtiapine FUMARATE 12.5 MG HALF-TAB PO SCH (20:30)
[2022-08-17] MEDS: RAMELTEON 8 MG TAB (ROZEREM) PO PRN (20:30)
[2022-08-18 06:00] VITALS: BP 140/77
[2022-08-18] MEDS: MIRALAX *UNIT DOSE* 17GM PACKET PO SCH (08:33)
[2022-08-18] MEDS: METAMUCIL (PSYLLIUM) PACKET PO SCH (08:33)
[2022-08-18] MEDS: CALCIUM/VITAMIN D 500 MG TAB PO SCH ×3 (08:33→20:08)
[2022-08-18] MEDS: ENOXAPARIN 40MG/0.4ML SYRINGE (J1650 PER 10MG) SC SCH (08:33)
[2022-08-18] MEDS: FUROSEMIDE 40 MG TAB PO SCH (08:33)
[2022-08-18] MEDS: DIMETHICONE 2% OINTMENT(VANICREAM) 70GM TUBE TOP SCH ×2 (08:33→20:08)
[2022-08-18] MEDS: RAMELTEON 8 MG TAB (ROZEREM) PO PRN (20:08)
[2022-08-18] MEDS: QUEtiapine FUMARATE 12.5 MG HALF-TAB PO SCH (20:08)
[2022-08-19 02:50] VITALS: BP 148/70
[2022-08-19] MEDS: ENOXAPARIN 40MG/0.4ML SYRINGE (J1650 PER 10MG) SC SCH (09:44)
[2022-08-19] MEDS: FUROSEMIDE 40 MG TAB PO SCH (09:44)
[2022-08-19] MEDS: CALCIUM/VITAMIN D 500 MG TAB PO SCH ×3 (09:44→20:12)
[2022-08-19] MEDS: DIMETHICONE 2% OINTMENT(VANICREAM) 70GM TUBE TOP SCH ×2 (09:45→20:12)
[2022-08-19] MEDS: MIRALAX *UNIT DOSE* 17GM PACKET PO SCH (09:45)
[2022-08-19] MEDS: METAMUCIL (PSYLLIUM) PACKET PO SCH (09:45)
[2022-08-19] MEDS: QUEtiapine FUMARATE 12.5 MG HALF-TAB PO SCH (20:12)
[2022-08-19] MEDS: RAMELTEON 8 MG TAB (ROZEREM) PO PRN (20:12)
[2022-08-20 06:00] VITALS: BP 136/63
[2022-08-20] MEDS: METAMUCIL (PSYLLIUM) PACKET PO SCH (09:04)
[2022-08-20] MEDS: DIMETHICONE 2% OINTMENT(VANICREAM) 70GM TUBE TOP SCH ×2 (09:05→21:06)
[2022-08-20] MEDS: FUROSEMIDE 40 MG TAB PO SCH (09:05)
[2022-08-20] MEDS: CALCIUM/VITAMIN D 500 MG TAB PO SCH ×3 (09:05→21:06)
[2022-08-20] MEDS: MIRALAX *UNIT DOSE* 17GM PACKET PO SCH (09:05)
[2022-08-20] MEDS: ENOXAPARIN 40MG/0.4ML SYRINGE (J1650 PER 10MG) SC SCH (09:05)
[2022-08-20 11:41] VITALS: BP 120/70
[2022-08-20] MEDS: QUEtiapine FUMARATE 12.5 MG HALF-TAB PO SCH (21:06)
[2022-08-20] MEDS: RAMELTEON 8 MG TAB (ROZEREM) PO PRN (21:06)
[2022-08-21 06:00] VITALS: BP 120/68
[2022-08-21] MEDS: ENOXAPARIN 40MG/0.4ML SYRINGE (J1650 PER 10MG) SC SCH ×2 (09:00→09:26)
[2022-08-21] MEDS: METAMUCIL (PSYLLIUM) PACKET PO SCH (09:26)
[2022-08-21] MEDS: DIMETHICONE 2% OINTMENT(VANICREAM) 70GM TUBE TOP SCH ×2 (09:26→20:15)
[2022-08-21] MEDS: MIRALAX *UNIT DOSE* 17GM PACKET PO SCH (09:26)
[2022-08-21] MEDS: FUROSEMIDE 40 MG TAB PO SCH (09:26)
[2022-08-21] MEDS: CALCIUM/VITAMIN D 500 MG TAB PO SCH ×3 (09:26→20:15)
[2022-08-21] MEDS: RAMELTEON 8 MG TAB (ROZEREM) PO PRN (20:15)
[2022-08-21] MEDS: QUEtiapine FUMARATE 12.5 MG HALF-TAB PO SCH (20:15)
[2022-08-22] MEDS: MIRALAX *UNIT DOSE* 17GM PACKET PO SCH (10:06)
[2022-08-22] MEDS: METAMUCIL (PSYLLIUM) PACKET PO SCH (10:06)
[2022-08-22] MEDS: FUROSEMIDE 40 MG TAB PO SCH (10:07)
[2022-08-22] MEDS: CALCIUM/VITAMIN D 500 MG TAB PO SCH ×3 (10:07→20:30)
[2022-08-22] MEDS: ENOXAPARIN 40MG/0.4ML SYRINGE (J1650 PER 10MG) SC SCH (10:07)
[2022-08-22] MEDS: DIMETHICONE 2% OINTMENT(VANICREAM) 70GM TUBE TOP SCH ×2 (10:07→20:31)
[2022-08-22] MEDS: RAMELTEON 8 MG TAB (ROZEREM) PO PRN (20:30)
[2022-08-22] MEDS: QUEtiapine FUMARATE 12.5 MG HALF-TAB PO SCH (20:30)
[2022-08-23 04:35] VITALS: BP 139/78
[2022-08-23] MEDS: CALCIUM/VITAMIN D 500 MG TAB PO SCH ×3 (09:43→19:59)
[2022-08-23] MEDS: ENOXAPARIN 40MG/0.4ML SYRINGE (J1650 PER 10MG) SC SCH (09:43)
[2022-08-23] MEDS: FUROSEMIDE 40 MG TAB PO SCH (09:43)
[2022-08-23] MEDS: METAMUCIL (PSYLLIUM) PACKET PO SCH (09:43)
[2022-08-23] MEDS: MIRALAX *UNIT DOSE* 17GM PACKET PO SCH (09:43)
[2022-08-23] MEDS: DIMETHICONE 2% OINTMENT(VANICREAM) 70GM TUBE TOP SCH ×2 (09:44→20:00)
[2022-08-23] MEDS: RAMELTEON 8 MG TAB (ROZEREM) PO PRN (19:59)
[2022-08-23] MEDS: QUEtiapine FUMARATE 12.5 MG HALF-TAB PO SCH (19:59)
[2022-08-24 06:00] VITALS: BP 150/92
[2022-08-24] MEDS: METAMUCIL (PSYLLIUM) PACKET PO SCH (08:29)
[2022-08-24] MEDS: FUROSEMIDE 40 MG TAB PO SCH (08:29)
[2022-08-24] MEDS: MIRALAX *UNIT DOSE* 17GM PACKET PO SCH (08:29)
[2022-08-24] MEDS: CALCIUM/VITAMIN D 500 MG TAB PO SCH ×3 (08:29→21:38)
[2022-08-24] MEDS: DIMETHICONE 2% OINTMENT(VANICREAM) 70GM TUBE TOP SCH ×2 (08:30→21:38)
[2022-08-24] MEDS: ENOXAPARIN 40MG/0.4ML SYRINGE (J1650 PER 10MG) SC SCH (08:30)
[2022-08-24] MEDS: QUEtiapine FUMARATE 12.5 MG HALF-TAB PO SCH (21:38)
[2022-08-24] MEDS: RAMELTEON 8 MG TAB (ROZEREM) PO PRN (21:39)
[2022-08-25 06:00] VITALS: BP 139/62
[2022-08-25] MEDS: ENOXAPARIN 40MG/0.4ML SYRINGE (J1650 PER 10MG) SC SCH (08:59)
[2022-08-25] MEDS: MIRALAX *UNIT DOSE* 17GM PACKET PO SCH (08:59)
[2022-08-25] MEDS: FUROSEMIDE 40 MG TAB PO SCH (08:59)
[2022-08-25] MEDS: CALCIUM/VITAMIN D 500 MG TAB PO SCH ×3 (08:59→20:52)
[2022-08-25] MEDS: METAMUCIL (PSYLLIUM) PACKET PO SCH (08:59)
[2022-08-25] MEDS: DIMETHICONE 2% OINTMENT(VANICREAM) 70GM TUBE TOP SCH ×2 (08:59→20:52)
[2022-08-25] MEDS: QUEtiapine FUMARATE 12.5 MG HALF-TAB PO SCH (20:51)
[2022-08-25] MEDS: RAMELTEON 8 MG TAB (ROZEREM) PO PRN (20:51)
[2022-08-26 05:38] VITALS: BP 115/83
[2022-08-26] MEDS: METAMUCIL (PSYLLIUM) PACKET PO SCH (08:03)
[2022-08-26] MEDS: FUROSEMIDE 40 MG TAB PO SCH (08:03)
[2022-08-26] MEDS: CALCIUM/VITAMIN D 500 MG TAB PO SCH ×3 (08:03→20:42)
[2022-08-26] MEDS: MIRALAX *UNIT DOSE* 17GM PACKET PO SCH (08:03)
[2022-08-26] MEDS: DIMETHICONE 2% OINTMENT(VANICREAM) 70GM TUBE TOP SCH ×2 (08:04→20:42)
[2022-08-26] MEDS: ENOXAPARIN 40MG/0.4ML SYRINGE (J1650 PER 10MG) SC SCH (08:04)
[2022-08-26] MEDS: QUEtiapine FUMARATE 12.5 MG HALF-TAB PO SCH (20:42)
[2022-08-26] MEDS: RAMELTEON 8 MG TAB (ROZEREM) PO PRN (20:42)
[2022-08-27 06:45] VITALS: BP 136/82
[2022-08-27] MEDS: CALCIUM/VITAMIN D 500 MG TAB PO SCH ×3 (12:01→20:02)
[2022-08-27] MEDS: METAMUCIL (PSYLLIUM) PACKET PO SCH (12:01)
[2022-08-27] MEDS: FUROSEMIDE 40 MG TAB PO SCH (12:01)
[2022-08-27] MEDS: MIRALAX *UNIT DOSE* 17GM PACKET PO SCH (12:01)
[2022-08-27] MEDS: ENOXAPARIN 40MG/0.4ML SYRINGE (J1650 PER 10MG) SC SCH (12:02)
[2022-08-27] MEDS: DIMETHICONE 2% OINTMENT(VANICREAM) 70GM TUBE TOP SCH ×2 (12:02→20:03)
[2022-08-27] MEDS: RAMELTEON 8 MG TAB (ROZEREM) PO PRN (20:02)
[2022-08-27] MEDS: QUEtiapine FUMARATE 12.5 MG HALF-TAB PO SCH (20:02)
[2022-08-28 06:00] VITALS: BP 127/68
[2022-08-28] MEDS: MIRALAX *UNIT DOSE* 17GM PACKET PO SCH (08:58)
[2022-08-28] MEDS: METAMUCIL (PSYLLIUM) PACKET PO SCH (08:58)
[2022-08-28] MEDS: CALCIUM/VITAMIN D 500 MG TAB PO SCH ×3 (08:58→21:20)
[2022-08-28] MEDS: FUROSEMIDE 40 MG TAB PO SCH (08:58)
[2022-08-28] MEDS: ENOXAPARIN 40MG/0.4ML SYRINGE (J1650 PER 10MG) SC SCH (09:00)
[2022-08-28] MEDS: DIMETHICONE 2% OINTMENT(VANICREAM) 70GM TUBE TOP SCH ×2 (09:02→21:21)
[2022-08-28] MEDS: RAMELTEON 8 MG TAB (ROZEREM) PO PRN (21:21)
[2022-08-28] MEDS: QUEtiapine FUMARATE 12.5 MG HALF-TAB PO SCH (21:21)
[2022-08-29] MEDS: MIRALAX *UNIT DOSE* 17GM PACKET PO SCH (09:45)
[2022-08-29] MEDS: METAMUCIL (PSYLLIUM) PACKET PO SCH (09:45)
[2022-08-29] MEDS: FUROSEMIDE 40 MG TAB PO SCH (09:46)
[2022-08-29] MEDS: CALCIUM/VITAMIN D 500 MG TAB PO SCH ×3 (09:46→19:34)
[2022-08-29] MEDS: ENOXAPARIN 40MG/0.4ML SYRINGE (J1650 PER 10MG) SC SCH (09:46)
[2022-08-29] MEDS: DIMETHICONE 2% OINTMENT(VANICREAM) 70GM TUBE TOP SCH ×2 (09:46→19:34)
[2022-08-29] MEDS: QUEtiapine FUMARATE 12.5 MG HALF-TAB PO SCH (19:34)
[2022-08-29] MEDS: RAMELTEON 8 MG TAB (ROZEREM) PO PRN (19:35)
[2022-08-30] MEDS: FUROSEMIDE 40 MG TAB PO SCH (08:23)
[2022-08-30] MEDS: CALCIUM/VITAMIN D 500 MG TAB PO SCH ×3 (08:23→19:28)
[2022-08-30] MEDS: ENOXAPARIN 40MG/0.4ML SYRINGE (J1650 PER 10MG) SC SCH (08:23)
[2022-08-30] MEDS: METAMUCIL (PSYLLIUM) PACKET PO SCH (08:23)
[2022-08-30] MEDS: DIMETHICONE 2% OINTMENT(VANICREAM) 70GM TUBE TOP SCH ×2 (08:23→19:34)
[2022-08-30] MEDS: MIRALAX *UNIT DOSE* 17GM PACKET PO SCH (08:23)
[2022-08-30] MEDS: RAMELTEON 8 MG TAB (ROZEREM) PO PRN (19:35)
[2022-08-30] MEDS: QUEtiapine FUMARATE 12.5 MG HALF-TAB PO SCH (19:35)
[2022-08-31] MEDS: MIRALAX *UNIT DOSE* 17GM PACKET PO SCH (08:48)
[2022-08-31] MEDS: DIMETHICONE 2% OINTMENT(VANICREAM) 70GM TUBE TOP SCH ×2 (08:49→19:07)
[2022-08-31] MEDS: ENOXAPARIN 40MG/0.4ML SYRINGE (J1650 PER 10MG) SC SCH (08:49)
[2022-08-31] MEDS: METAMUCIL (PSYLLIUM) PACKET PO SCH (08:49)
[2022-08-31] MEDS: CALCIUM/VITAMIN D 500 MG TAB PO SCH ×3 (08:49→20:27)
[2022-08-31] MEDS: FUROSEMIDE 40 MG TAB PO SCH (08:49)
[2022-08-31] MEDS: RAMELTEON 8 MG TAB (ROZEREM) PO PRN (20:27)
[2022-08-31] MEDS: QUEtiapine FUMARATE 12.5 MG HALF-TAB PO SCH (20:27)
[2022-09-01 05:38] VITALS: BP 119/68
[2022-09-01] MEDS: METAMUCIL (PSYLLIUM) PACKET PO SCH (08:23)
[2022-09-01] MEDS: MIRALAX *UNIT DOSE* 17GM PACKET PO SCH (08:23)
[2022-09-01] MEDS: CALCIUM/VITAMIN D 500 MG TAB PO SCH ×3 (08:23→20:10)
[2022-09-01] MEDS: ENOXAPARIN 40MG/0.4ML SYRINGE (J1650 PER 10MG) SC SCH (08:24)
[2022-09-01] MEDS: FUROSEMIDE 40 MG TAB PO SCH (08:24)
[2022-09-01] MEDS: DIMETHICONE 2% OINTMENT(VANICREAM) 70GM TUBE TOP SCH ×2 (08:24→20:11)
[2022-09-01] MEDS: RAMELTEON 8 MG TAB (ROZEREM) PO PRN (20:10)
[2022-09-01] MEDS: QUEtiapine FUMARATE 12.5 MG HALF-TAB PO SCH (20:10)
[2022-09-02 06:00] VITALS: BP 118/80
[2022-09-02] MEDS: FUROSEMIDE 40 MG TAB PO SCH (08:41)
[2022-09-02] MEDS: CALCIUM/VITAMIN D 500 MG TAB PO SCH ×3 (08:41→20:23)
[2022-09-02] MEDS: MIRALAX *UNIT DOSE* 17GM PACKET PO SCH (08:42)
[2022-09-02] MEDS: ENOXAPARIN 40MG/0.4ML SYRINGE (J1650 PER 10MG) SC SCH ×2 (08:42→08:47)
[2022-09-02] MEDS: METAMUCIL (PSYLLIUM) PACKET PO SCH (08:42)
[2022-09-02] MEDS: DIMETHICONE 2% OINTMENT(VANICREAM) 70GM TUBE TOP SCH ×2 (08:43→20:23)
[2022-09-02] MEDS: QUEtiapine FUMARATE 12.5 MG HALF-TAB PO SCH (20:23)
[2022-09-02] MEDS: RAMELTEON 8 MG TAB (ROZEREM) PO PRN (20:23)
[2022-09-03 07:00] VITALS: BP 129/67
[2022-09-03] MEDS: FUROSEMIDE 40 MG TAB PO SCH (09:41)
[2022-09-03] MEDS: ENOXAPARIN 40MG/0.4ML SYRINGE (J1650 PER 10MG) SC SCH (09:41)
[2022-09-03] MEDS: CALCIUM/VITAMIN D 500 MG TAB PO SCH ×3 (09:42→19:56)
[2022-09-03] MEDS: DIMETHICONE 2% OINTMENT(VANICREAM) 70GM TUBE TOP SCH ×2 (09:42→19:55)
[2022-09-03] MEDS: MIRALAX *UNIT DOSE* 17GM PACKET PO SCH (09:42)
[2022-09-03] MEDS: METAMUCIL (PSYLLIUM) PACKET PO SCH (09:42)
[2022-09-03] MEDS: RAMELTEON 8 MG TAB (ROZEREM) PO PRN (19:55)
[2022-09-03] MEDS: QUEtiapine FUMARATE 12.5 MG HALF-TAB PO SCH (19:56)
[2022-09-04 06:00] VITALS: BP 151/82
[2022-09-04] MEDS: METAMUCIL (PSYLLIUM) PACKET PO SCH (08:33)
[2022-09-04] MEDS: CALCIUM/VITAMIN D 500 MG TAB PO SCH ×3 (08:33→19:18)
[2022-09-04] MEDS: FUROSEMIDE 40 MG TAB PO SCH (08:34)
[2022-09-04] MEDS: MIRALAX *UNIT DOSE* 17GM PACKET PO SCH (08:34)
[2022-09-04] MEDS: ENOXAPARIN 40MG/0.4ML SYRINGE (J1650 PER 10MG) SC SCH (08:34)
[2022-09-04] MEDS: DIMETHICONE 2% OINTMENT(VANICREAM) 70GM TUBE TOP SCH ×2 (08:34→19:18)
[2022-09-04] MEDS: QUEtiapine FUMARATE 12.5 MG HALF-TAB PO SCH (19:18)
[2022-09-04] MEDS: RAMELTEON 8 MG TAB (ROZEREM) PO PRN (19:18)
[2022-09-05 06:00] VITALS: BP 122/66
[2022-09-05] MEDS: MIRALAX *UNIT DOSE* 17GM PACKET PO SCH (09:31)
[2022-09-05] MEDS: ENOXAPARIN 40MG/0.4ML SYRINGE (J1650 PER 10MG) SC SCH (09:31)
[2022-09-05] MEDS: CALCIUM/VITAMIN D 500 MG TAB PO SCH ×3 (09:31→20:28)
[2022-09-05] MEDS: FUROSEMIDE 40 MG TAB PO SCH (09:31)
[2022-09-05] MEDS: METAMUCIL (PSYLLIUM) PACKET PO SCH (09:31)
[2022-09-05] MEDS: DIMETHICONE 2% OINTMENT(VANICREAM) 70GM TUBE TOP SCH ×2 (09:32→20:28)
[2022-09-05] MEDS: RAMELTEON 8 MG TAB (ROZEREM) PO PRN (20:28)
[2022-09-05] MEDS: QUEtiapine FUMARATE 12.5 MG HALF-TAB PO SCH (20:28)
[2022-09-05] MEDS: ACETAMINOPHEN TAB 650MG DOSE (2X325MG) PO PRN (20:28)
[2022-09-06 06:00] VITALS: BP 150/90
[2022-09-06] MEDS: FUROSEMIDE 40 MG TAB PO SCH (08:58)
[2022-09-06] MEDS: METAMUCIL (PSYLLIUM) PACKET PO SCH (08:58)
[2022-09-06] MEDS: MIRALAX *UNIT DOSE* 17GM PACKET PO SCH (08:58)
[2022-09-06] MEDS: CALCIUM/VITAMIN D 500 MG TAB PO SCH ×3 (08:58→20:19)
[2022-09-06] MEDS: ENOXAPARIN 40MG/0.4ML SYRINGE (J1650 PER 10MG) SC SCH (08:59)
[2022-09-06] MEDS: DIMETHICONE 2% OINTMENT(VANICREAM) 70GM TUBE TOP SCH ×2 (08:59→21:00)
[2022-09-06] MEDS: RAMELTEON 8 MG TAB (ROZEREM) PO PRN (20:19)
[2022-09-06] MEDS: ACETAMINOPHEN TAB 650MG DOSE (2X325MG) PO PRN (20:19)
[2022-09-06] MEDS: QUEtiapine FUMARATE 12.5 MG HALF-TAB PO SCH (20:19)
[2022-09-07 06:00] VITALS: BP 143/91
[2022-09-07] MEDS ORDERED: QUEtiapine FUMARATE 12.5 MG HALF-TAB PO ONE (07:00)
[2022-09-07] MEDS: MIRALAX *UNIT DOSE* 17GM PACKET PO SCH (08:12)
[2022-09-07] MEDS: METAMUCIL (PSYLLIUM) PACKET PO SCH (08:12)
[2022-09-07] MEDS: FUROSEMIDE 40 MG TAB PO SCH (08:12)
[2022-09-07] MEDS: ENOXAPARIN 40MG/0.4ML SYRINGE (J1650 PER 10MG) SC SCH ×2 (08:12→08:18)
[2022-09-07] MEDS: CALCIUM/VITAMIN D 500 MG TAB PO SCH ×3 (08:12→20:08)
[2022-09-07] MEDS: DIMETHICONE 2% OINTMENT(VANICREAM) 70GM TUBE TOP SCH ×2 (08:13→20:08)
[2022-09-07] MEDS: QUEtiapine FUMARATE 12.5 MG HALF-TAB PO SCH (20:08)
[2022-09-07] MEDS: RAMELTEON 8 MG TAB (ROZEREM) PO PRN (20:08)
[2022-09-08] MEDS: ACETAMINOPHEN TAB 650MG DOSE (2X325MG) PO PRN ×3 (01:57→12:56)
[2022-09-08 07:23] VITALS: BP 142/89
[2022-09-08] MEDS: FUROSEMIDE 40 MG TAB PO SCH (08:19)
[2022-09-08] MEDS: CALCIUM/VITAMIN D 500 MG TAB PO SCH ×3 (08:19→19:57)
[2022-09-08] MEDS: ENOXAPARIN 40MG/0.4ML SYRINGE (J1650 PER 10MG) SC SCH (08:19)
[2022-09-08] MEDS: METAMUCIL (PSYLLIUM) PACKET PO SCH (08:19)
[2022-09-08] MEDS: DIMETHICONE 2% OINTMENT(VANICREAM) 70GM TUBE TOP SCH ×2 (08:19→19:57)
[2022-09-08] MEDS: MIRALAX *UNIT DOSE* 17GM PACKET PO SCH (08:19)
[2022-09-08] MEDS: QUEtiapine FUMARATE 12.5 MG HALF-TAB PO SCH (19:57)
[2022-09-08] MEDS: RAMELTEON 8 MG TAB (ROZEREM) PO PRN (19:57)
[2022-09-09 06:30] VITALS: BP 140/81
[2022-09-09] MEDS: ENOXAPARIN 40MG/0.4ML SYRINGE (J1650 PER 10MG) SC SCH (09:00)
[2022-09-09] MEDS: DIMETHICONE 2% OINTMENT(VANICREAM) 70GM TUBE TOP SCH ×2 (09:47→18:49)
[2022-09-09] MEDS: CALCIUM/VITAMIN D 500 MG TAB PO SCH ×3 (09:47→18:49)
[2022-09-09] MEDS: FUROSEMIDE 40 MG TAB PO SCH (09:47)
[2022-09-09] MEDS: MIRALAX *UNIT DOSE* 17GM PACKET PO SCH (09:47)
[2022-09-09] MEDS: METAMUCIL (PSYLLIUM) PACKET PO SCH (09:47)
[2022-09-09] MEDS: RAMELTEON 8 MG TAB (ROZEREM) PO PRN (18:49)
[2022-09-09] MEDS: QUEtiapine FUMARATE 12.5 MG HALF-TAB PO SCH (18:49)
[2022-09-10 06:00] VITALS: BP 129/82
[2022-09-10] MEDS: CALCIUM/VITAMIN D 500 MG TAB PO SCH ×3 (08:50→21:39)
[2022-09-10] MEDS: FUROSEMIDE 40 MG TAB PO SCH (08:50)
[2022-09-10] MEDS: ACETAMINOPHEN TAB 650MG DOSE (2X325MG) PO PRN (08:51)
[2022-09-10] MEDS: MIRALAX *UNIT DOSE* 17GM PACKET PO SCH (08:51)
[2022-09-10] MEDS: METAMUCIL (PSYLLIUM) PACKET PO SCH (08:51)
[2022-09-10] MEDS: DIMETHICONE 2% OINTMENT(VANICREAM) 70GM TUBE TOP SCH ×2 (08:52→21:39)
[2022-09-10] MEDS: ENOXAPARIN 40MG/0.4ML SYRINGE (J1650 PER 10MG) SC SCH (08:52)
[2022-09-10] MEDS: RAMELTEON 8 MG TAB (ROZEREM) PO PRN (21:39)
[2022-09-10] MEDS: QUEtiapine FUMARATE 12.5 MG HALF-TAB PO SCH (21:39)
[2022-09-11 06:00] VITALS: BP 142/92
[2022-09-11] MEDS: ENOXAPARIN 40MG/0.4ML SYRINGE (J1650 PER 10MG) SC SCH (10:11)
[2022-09-11] MEDS: FUROSEMIDE 40 MG TAB PO SCH (10:11)
[2022-09-11] MEDS: CALCIUM/VITAMIN D 500 MG TAB PO SCH ×3 (10:11→20:45)
[2022-09-11] MEDS: ACETAMINOPHEN TAB 650MG DOSE (2X325MG) PO PRN (10:12)
[2022-09-11] MEDS: MIRALAX *UNIT DOSE* 17GM PACKET PO SCH (10:12)
[2022-09-11] MEDS: DIMETHICONE 2% OINTMENT(VANICREAM) 70GM TUBE TOP SCH ×2 (10:12→20:45)
[2022-09-11] MEDS: METAMUCIL (PSYLLIUM) PACKET PO SCH (10:12)
[2022-09-11] MEDS: QUEtiapine FUMARATE 12.5 MG HALF-TAB PO SCH (20:45)
[2022-09-11] MEDS: RAMELTEON 8 MG TAB (ROZEREM) PO PRN (20:45)
[2022-09-12 05:57] VITALS: BP 125/60
[2022-09-12] MEDS: METAMUCIL (PSYLLIUM) PACKET PO SCH (08:56)
[2022-09-12] MEDS: MIRALAX *UNIT DOSE* 17GM PACKET PO SCH (08:56)
[2022-09-12] MEDS: CALCIUM/VITAMIN D 500 MG TAB PO SCH ×3 (08:57→19:36)
[2022-09-12] MEDS: DIMETHICONE 2% OINTMENT(VANICREAM) 70GM TUBE TOP SCH ×2 (08:57→19:38)
[2022-09-12] MEDS: ENOXAPARIN 40MG/0.4ML SYRINGE (J1650 PER 10MG) SC SCH (08:57)
[2022-09-12] MEDS: FUROSEMIDE 40 MG TAB PO SCH (08:57)
[2022-09-12] MEDS: RAMELTEON 8 MG TAB (ROZEREM) PO PRN (19:37)
[2022-09-12] MEDS: QUEtiapine FUMARATE 12.5 MG HALF-TAB PO SCH (19:37)
[2022-09-12] MEDS: ACETAMINOPHEN TAB 650MG DOSE (2X325MG) PO PRN (19:37)
[2022-09-13] MEDS: CALCIUM/VITAMIN D 500 MG TAB PO SCH ×3 (08:33→19:57)
[2022-09-13] MEDS: MIRALAX *UNIT DOSE* 17GM PACKET PO SCH (08:33)
[2022-09-13] MEDS: FUROSEMIDE 40 MG TAB PO SCH (08:33)
[2022-09-13] MEDS: METAMUCIL (PSYLLIUM) PACKET PO SCH (08:33)
[2022-09-13] MEDS: DIMETHICONE 2% OINTMENT(VANICREAM) 70GM TUBE TOP SCH ×2 (08:34→19:57)
[2022-09-13] MEDS: ENOXAPARIN 40MG/0.4ML SYRINGE (J1650 PER 10MG) SC SCH (08:34)
[2022-09-13] MEDS: RAMELTEON 8 MG TAB (ROZEREM) PO PRN (19:56)
[2022-09-13] MEDS: QUEtiapine FUMARATE 12.5 MG HALF-TAB PO SCH (19:56)
[2022-09-13] MEDS: ACETAMINOPHEN TAB 650MG DOSE (2X325MG) PO PRN (19:57)
[2022-09-14 06:15] VITALS: BP 145/80
[2022-09-14] MEDS: FUROSEMIDE 40 MG TAB PO SCH (08:23)
[2022-09-14] MEDS: METAMUCIL (PSYLLIUM) PACKET PO SCH (08:23)
[2022-09-14] MEDS: MIRALAX *UNIT DOSE* 17GM PACKET PO SCH (08:23)
[2022-09-14] MEDS: ENOXAPARIN 40MG/0.4ML SYRINGE (J1650 PER 10MG) SC SCH (08:23)
[2022-09-14] MEDS: CALCIUM/VITAMIN D 500 MG TAB PO SCH ×3 (08:23→20:59)
[2022-09-14] MEDS: DIMETHICONE 2% OINTMENT(VANICREAM) 70GM TUBE TOP SCH ×2 (08:24→20:59)
[2022-09-14] MEDS: RAMELTEON 8 MG TAB (ROZEREM) PO PRN (20:59)
[2022-09-14] MEDS: QUEtiapine FUMARATE 12.5 MG HALF-TAB PO SCH (20:59)
[2022-09-15 06:59] VITALS: BP 122/65
[2022-09-15] MEDS: METAMUCIL (PSYLLIUM) PACKET PO SCH (09:30)
[2022-09-15] MEDS: ENOXAPARIN 40MG/0.4ML SYRINGE (J1650 PER 10MG) SC SCH (09:30)
[2022-09-15] MEDS: MIRALAX *UNIT DOSE* 17GM PACKET PO SCH (09:30)
[2022-09-15] MEDS: FUROSEMIDE 40 MG TAB PO SCH (09:30)
[2022-09-15] MEDS: DIMETHICONE 2% OINTMENT(VANICREAM) 70GM TUBE TOP SCH ×2 (09:30→19:12)
[2022-09-15] MEDS: CALCIUM/VITAMIN D 500 MG TAB PO SCH ×3 (09:30→19:12)
[2022-09-15] MEDS: QUEtiapine FUMARATE 12.5 MG HALF-TAB PO SCH (19:12)
[2022-09-15] MEDS: RAMELTEON 8 MG TAB (ROZEREM) PO PRN (20:20)
[2022-09-16 08:00] VITALS: BP 143/79
[2022-09-16] MEDS: CALCIUM/VITAMIN D 500 MG TAB PO SCH ×3 (09:55→20:14)
[2022-09-16] MEDS: METAMUCIL (PSYLLIUM) PACKET PO SCH (09:55)
[2022-09-16] MEDS: MIRALAX *UNIT DOSE* 17GM PACKET PO SCH (09:55)
[2022-09-16] MEDS: FUROSEMIDE 40 MG TAB PO SCH (09:55)
[2022-09-16] MEDS: DIMETHICONE 2% OINTMENT(VANICREAM) 70GM TUBE TOP SCH ×2 (09:55→20:14)
[2022-09-16] MEDS: ENOXAPARIN 40MG/0.4ML SYRINGE (J1650 PER 10MG) SC SCH (09:56)
[2022-09-16] MEDS: RAMELTEON 8 MG TAB (ROZEREM) PO PRN (20:14)
[2022-09-16] MEDS: QUEtiapine FUMARATE 12.5 MG HALF-TAB PO SCH (20:14)
[2022-09-17 06:00] VITALS: BP 124/66
[2022-09-17] MEDS: CALCIUM/VITAMIN D 500 MG TAB PO SCH ×3 (09:44→20:02)
[2022-09-17] MEDS: METAMUCIL (PSYLLIUM) PACKET PO SCH (09:44)
[2022-09-17] MEDS: ENOXAPARIN 40MG/0.4ML SYRINGE (J1650 PER 10MG) SC SCH (09:44)
[2022-09-17] MEDS: DIMETHICONE 2% OINTMENT(VANICREAM) 70GM TUBE TOP SCH ×2 (09:44→20:03)
[2022-09-17] MEDS: MIRALAX *UNIT DOSE* 17GM PACKET PO SCH (09:44)
[2022-09-17] MEDS: FUROSEMIDE 40 MG TAB PO SCH (09:45)
[2022-09-17] MEDS: ACETAMINOPHEN TAB 650MG DOSE (2X325MG) PO PRN (20:02)
[2022-09-17] MEDS: RAMELTEON 8 MG TAB (ROZEREM) PO PRN (20:02)
[2022-09-17] MEDS: QUEtiapine FUMARATE 12.5 MG HALF-TAB PO SCH (20:02)
[2022-09-18 06:00] VITALS: BP 125/70
[2022-09-18] MEDS: METAMUCIL (PSYLLIUM) PACKET PO SCH (09:28)
[2022-09-18] MEDS: CALCIUM/VITAMIN D 500 MG TAB PO SCH ×3 (09:28→20:06)
[2022-09-18] MEDS: MIRALAX *UNIT DOSE* 17GM PACKET PO SCH (09:28)
[2022-09-18] MEDS: DIMETHICONE 2% OINTMENT(VANICREAM) 70GM TUBE TOP SCH ×2 (09:29→20:06)
[2022-09-18] MEDS: ENOXAPARIN 40MG/0.4ML SYRINGE (J1650 PER 10MG) SC SCH (09:29)
[2022-09-18] MEDS: FUROSEMIDE 40 MG TAB PO SCH (09:32)
[2022-09-18 09:33] VITALS: BP 132/74
[2022-09-18] MEDS: RAMELTEON 8 MG TAB (ROZEREM) PO PRN (20:05)
[2022-09-18] MEDS: QUEtiapine FUMARATE 12.5 MG HALF-TAB PO SCH (20:05)
[2022-09-18] MEDS: ACETAMINOPHEN TAB 650MG DOSE (2X325MG) PO PRN (20:06)
[2022-09-19] MEDS: ENOXAPARIN 40MG/0.4ML SYRINGE (J1650 PER 10MG) SC SCH (10:03)
[2022-09-19] MEDS: FUROSEMIDE 40 MG TAB PO SCH (10:03)
[2022-09-19] MEDS: METAMUCIL (PSYLLIUM) PACKET PO SCH (10:03)
[2022-09-19] MEDS: MIRALAX *UNIT DOSE* 17GM PACKET PO SCH (10:03)
[2022-09-19] MEDS: DIMETHICONE 2% OINTMENT(VANICREAM) 70GM TUBE TOP SCH ×2 (10:04→20:11)
[2022-09-19] MEDS: CALCIUM/VITAMIN D 500 MG TAB PO SCH ×3 (10:04→20:10)
[2022-09-19] MEDS: QUEtiapine FUMARATE 12.5 MG HALF-TAB PO SCH (20:11)
[2022-09-19] MEDS: RAMELTEON 8 MG TAB (ROZEREM) PO PRN (20:11)
[2022-09-19] MEDS: ACETAMINOPHEN TAB 650MG DOSE (2X325MG) PO PRN (20:11)
[2022-09-20 06:00] VITALS: BP 166/78
[2022-09-20] MEDS ORDERED: OLANZapine 2.5MG TABLET PO ONE (09:05)
[2022-09-20] MEDS: MIRALAX *UNIT DOSE* 17GM PACKET PO SCH (09:13)
[2022-09-20] MEDS: FUROSEMIDE 40 MG TAB PO SCH (09:13)
[2022-09-20] MEDS: CALCIUM/VITAMIN D 500 MG TAB PO SCH ×3 (09:13→19:52)
[2022-09-20] MEDS: METAMUCIL (PSYLLIUM) PACKET PO SCH (09:13)
[2022-09-20] MEDS: DIMETHICONE 2% OINTMENT(VANICREAM) 70GM TUBE TOP SCH ×2 (09:14→19:53)
[2022-09-20] MEDS: ENOXAPARIN 40MG/0.4ML SYRINGE (J1650 PER 10MG) SC SCH (09:39)
[2022-09-20] MEDS: RAMELTEON 8 MG TAB (ROZEREM) PO PRN (19:53)
[2022-09-20] MEDS: QUEtiapine FUMARATE 12.5 MG HALF-TAB PO SCH (19:53)
[2022-09-21 05:28] VITALS: BP 136/73
[2022-09-21] MEDS: FUROSEMIDE 40 MG TAB PO SCH (08:40)
[2022-09-21] MEDS: DIMETHICONE 2% OINTMENT(VANICREAM) 70GM TUBE TOP SCH ×2 (08:41→20:48)
[2022-09-21] MEDS: METAMUCIL (PSYLLIUM) PACKET PO SCH (08:41)
[2022-09-21] MEDS: CALCIUM/VITAMIN D 500 MG TAB PO SCH ×3 (08:41→20:48)
[2022-09-21] MEDS: ENOXAPARIN 40MG/0.4ML SYRINGE (J1650 PER 10MG) SC SCH (08:41)
[2022-09-21] MEDS: MIRALAX *UNIT DOSE* 17GM PACKET PO SCH (08:41)
[2022-09-21] MEDS: QUEtiapine FUMARATE 12.5 MG HALF-TAB PO SCH (20:48)
[2022-09-21] MEDS: RAMELTEON 8 MG TAB (ROZEREM) PO PRN (20:48)
[2022-09-22 06:25] VITALS: BP 136/72
[2022-09-22] MEDS: MIRALAX *UNIT DOSE* 17GM PACKET PO SCH (08:07)
[2022-09-22] MEDS: METAMUCIL (PSYLLIUM) PACKET PO SCH (08:07)
[2022-09-22] MEDS: CALCIUM/VITAMIN D 500 MG TAB PO SCH ×3 (08:08→20:33)
[2022-09-22] MEDS: DIMETHICONE 2% OINTMENT(VANICREAM) 70GM TUBE TOP SCH ×2 (08:08→20:34)
[2022-09-22] MEDS: ENOXAPARIN 40MG/0.4ML SYRINGE (J1650 PER 10MG) SC SCH (08:08)
[2022-09-22 08:11] VITALS: BP 105/77
[2022-09-22] MEDS: FUROSEMIDE 40 MG TAB PO SCH (08:11)
[2022-09-22] MEDS: QUEtiapine FUMARATE 12.5 MG HALF-TAB PO SCH (20:33)
[2022-09-22] MEDS: RAMELTEON 8 MG TAB (ROZEREM) PO PRN (20:33)
[2022-09-23 06:02] VITALS: BP 147/80
[2022-09-23] MEDS: MIRALAX *UNIT DOSE* 17GM PACKET PO SCH (09:47)
[2022-09-23] MEDS: METAMUCIL (PSYLLIUM) PACKET PO SCH (09:47)
[2022-09-23] MEDS: DIMETHICONE 2% OINTMENT(VANICREAM) 70GM TUBE TOP SCH ×2 (09:47→20:14)
[2022-09-23] MEDS: CALCIUM/VITAMIN D 500 MG TAB PO SCH ×3 (09:47→20:13)
[2022-09-23] MEDS: ENOXAPARIN 40MG/0.4ML SYRINGE (J1650 PER 10MG) SC SCH (09:48)
[2022-09-23] MEDS: FUROSEMIDE 40 MG TAB PO SCH (09:49)
[2022-09-23 09:50] VITALS: BP 120/60
[2022-09-23] MEDS: QUEtiapine FUMARATE 12.5 MG HALF-TAB PO SCH (20:13)
[2022-09-23] MEDS: RAMELTEON 8 MG TAB (ROZEREM) PO PRN (20:14)
[2022-09-24 05:30] VITALS: BP 132/70
[2022-09-24 07:30] VITALS: BP 118/80
[2022-09-24] MEDS: MIRALAX *UNIT DOSE* 17GM PACKET PO SCH (08:18)
[2022-09-24] MEDS: METAMUCIL (PSYLLIUM) PACKET PO SCH (08:18)
[2022-09-24] MEDS: CALCIUM/VITAMIN D 500 MG TAB PO SCH ×3 (08:19→20:03)
[2022-09-24] MEDS: FUROSEMIDE 40 MG TAB PO SCH (08:19)
[2022-09-24] MEDS: DIMETHICONE 2% OINTMENT(VANICREAM) 70GM TUBE TOP SCH ×2 (08:20→20:03)
[2022-09-24] MEDS: ENOXAPARIN 40MG/0.4ML SYRINGE (J1650 PER 10MG) SC SCH (09:54)
[2022-09-24] MEDS ORDERED: VALPROATE SOD INJ 500 MG in D5W 50 ML IV SCH (13:45)
[2022-09-24] MEDS ORDERED: OLANZapine 5 MG TAB PO ONE (13:50)
[2022-09-24] MEDS: ACETAMINOPHEN TAB 650MG DOSE (2X325MG) PO PRN (16:29)
[2022-09-24] MEDS: QUEtiapine FUMARATE 12.5 MG HALF-TAB PO SCH (20:03)
[2022-09-24] MEDS: RAMELTEON 8 MG TAB (ROZEREM) PO PRN (20:03)
[2022-09-25 06:00] VITALS: BP 109/59
[2022-09-25] MEDS: MIRALAX *UNIT DOSE* 17GM PACKET PO SCH (08:15)
[2022-09-25] MEDS: METAMUCIL (PSYLLIUM) PACKET PO SCH (08:15)
[2022-09-25] MEDS: DIMETHICONE 2% OINTMENT(VANICREAM) 70GM TUBE TOP SCH ×2 (08:17→19:54)
[2022-09-25] MEDS: CALCIUM/VITAMIN D 500 MG TAB PO SCH ×3 (08:17→19:53)
[2022-09-25] MEDS: ENOXAPARIN 40MG/0.4ML SYRINGE (J1650 PER 10MG) SC SCH (08:17)
[2022-09-25] MEDS: FUROSEMIDE 40 MG TAB PO SCH (08:17)
[2022-09-25 08:20] VITALS: BP 130/70
[2022-09-25] MEDS: RAMELTEON 8 MG TAB (ROZEREM) PO PRN (19:53)
[2022-09-25] MEDS: QUEtiapine FUMARATE 12.5 MG HALF-TAB PO SCH (19:53)
[2022-09-26 05:04] VITALS: BP 124/69
[2022-09-26] MEDS: ENOXAPARIN 40MG/0.4ML SYRINGE (J1650 PER 10MG) SC SCH ×2 (09:00→09:19)
[2022-09-26] MEDS: FUROSEMIDE 40 MG TAB PO SCH (09:19)
[2022-09-26] MEDS: MIRALAX *UNIT DOSE* 17GM PACKET PO SCH (09:19)
[2022-09-26] MEDS: DIMETHICONE 2% OINTMENT(VANICREAM) 70GM TUBE TOP SCH ×2 (09:19→19:46)
[2022-09-26] MEDS: CALCIUM/VITAMIN D 500 MG TAB PO SCH ×3 (09:19→19:44)
[2022-09-26] MEDS: METAMUCIL (PSYLLIUM) PACKET PO SCH (09:19)
[2022-09-26] MEDS: RAMELTEON 8 MG TAB (ROZEREM) PO PRN (19:44)
[2022-09-26] MEDS: QUEtiapine FUMARATE 12.5 MG HALF-TAB PO SCH (19:44)
[2022-09-27 05:42] VITALS: BP 121/69
[2022-09-27] MEDS: FUROSEMIDE 40 MG TAB PO SCH (08:22)
[2022-09-27] MEDS: CALCIUM/VITAMIN D 500 MG TAB PO SCH ×3 (08:22→19:56)
[2022-09-27] MEDS: ENOXAPARIN 40MG/0.4ML SYRINGE (J1650 PER 10MG) SC SCH (08:23)
[2022-09-27] MEDS: METAMUCIL (PSYLLIUM) PACKET PO SCH (08:23)
[2022-09-27] MEDS: DIMETHICONE 2% OINTMENT(VANICREAM) 70GM TUBE TOP SCH ×2 (08:23→19:56)
[2022-09-27] MEDS: MIRALAX *UNIT DOSE* 17GM PACKET PO SCH (08:23)
[2022-09-27] MEDS: QUEtiapine FUMARATE 12.5 MG HALF-TAB PO SCH (19:56)
[2022-09-27] MEDS: RAMELTEON 8 MG TAB (ROZEREM) PO PRN (19:56)
[2022-09-28] MEDS: CALCIUM/VITAMIN D 500 MG TAB PO SCH ×4 (09:00→21:52)
[2022-09-28] MEDS: FUROSEMIDE 40 MG TAB PO SCH ×2 (09:00→10:28)
[2022-09-28] MEDS: DIMETHICONE 2% OINTMENT(VANICREAM) 70GM TUBE TOP SCH ×3 (09:00→21:52)
[2022-09-28] MEDS: ENOXAPARIN 40MG/0.4ML SYRINGE (J1650 PER 10MG) SC SCH ×2 (09:00→10:29)
[2022-09-28] MEDS: MIRALAX *UNIT DOSE* 17GM PACKET PO SCH (10:28)
[2022-09-28] MEDS: METAMUCIL (PSYLLIUM) PACKET PO SCH (10:28)
[2022-09-28 14:00] VITALS: BP 130/70
[2022-09-28] MEDS: QUEtiapine FUMARATE 12.5 MG HALF-TAB PO SCH (21:52)
[2022-09-28] MEDS: RAMELTEON 8 MG TAB (ROZEREM) PO PRN (21:52)
[2022-09-29 06:00] VITALS: BP 133/73
[2022-09-29] MEDS: MIRALAX *UNIT DOSE* 17GM PACKET PO SCH (10:36)
[2022-09-29] MEDS: CALCIUM/VITAMIN D 500 MG TAB PO SCH ×3 (10:36→20:23)
[2022-09-29] MEDS: METAMUCIL (PSYLLIUM) PACKET PO SCH (10:36)
[2022-09-29] MEDS: ENOXAPARIN 40MG/0.4ML SYRINGE (J1650 PER 10MG) SC SCH (10:37)
[2022-09-29] MEDS: FUROSEMIDE 40 MG TAB PO SCH (10:37)
[2022-09-29] MEDS: DIMETHICONE 2% OINTMENT(VANICREAM) 70GM TUBE TOP SCH ×2 (10:37→20:23)
[2022-09-29] MEDS: QUEtiapine FUMARATE 12.5 MG HALF-TAB PO SCH (20:23)
[2022-09-29] MEDS: RAMELTEON 8 MG TAB (ROZEREM) PO PRN (20:23)
[2022-09-30 06:00] VITALS: BP 110/62
[2022-09-30] MEDS: CALCIUM/VITAMIN D 500 MG TAB PO SCH ×3 (10:45→19:43)
[2022-09-30] MEDS: FUROSEMIDE 40 MG TAB PO SCH (10:45)
[2022-09-30] MEDS: METAMUCIL (PSYLLIUM) PACKET PO SCH (10:46)
[2022-09-30] MEDS: ENOXAPARIN 40MG/0.4ML SYRINGE (J1650 PER 10MG) SC SCH (10:50)
[2022-09-30] MEDS: MIRALAX *UNIT DOSE* 17GM PACKET PO SCH (10:50)
[2022-09-30] MEDS: DIMETHICONE 2% OINTMENT(VANICREAM) 70GM TUBE TOP SCH ×2 (10:52→19:44)
[2022-09-30] MEDS: QUEtiapine FUMARATE 12.5 MG HALF-TAB PO SCH (19:43)
[2022-09-30] MEDS: RAMELTEON 8 MG TAB (ROZEREM) PO PRN (19:43)
[2022-09-30] MEDS: ACETAMINOPHEN TAB 650MG DOSE (2X325MG) PO PRN (19:44)
[2022-10-01 04:46] VITALS: BP 133/76
[2022-10-01] MEDS: MIRALAX *UNIT DOSE* 17GM PACKET PO SCH (08:15)
[2022-10-01] MEDS: CALCIUM/VITAMIN D 500 MG TAB PO SCH ×3 (08:15→19:39)
[2022-10-01] MEDS: METAMUCIL (PSYLLIUM) PACKET PO SCH (08:15)
[2022-10-01] MEDS: ENOXAPARIN 40MG/0.4ML SYRINGE (J1650 PER 10MG) SC SCH (08:15)
[2022-10-01] MEDS: FUROSEMIDE 40 MG TAB PO SCH (08:15)
[2022-10-01] MEDS: DIMETHICONE 2% OINTMENT(VANICREAM) 70GM TUBE TOP SCH ×2 (08:16→19:40)
[2022-10-01] MEDS ORDERED: OLANZapine ORAL DISINTEGRATING TAB 5MG PO STA (11:30)
[2022-10-01] MEDS: QUEtiapine FUMARATE 12.5 MG HALF-TAB PO SCH (19:39)
[2022-10-01] MEDS: RAMELTEON 8 MG TAB (ROZEREM) PO PRN (19:39)
[2022-10-02 05:36] VITALS: BP 132/74
[2022-10-02] MEDS: OLANZapine ORAL DISINTEGRATING TAB 5MG PO PRN ×2 (08:49→18:18)
[2022-10-02] MEDS: METAMUCIL (PSYLLIUM) PACKET PO SCH (09:00)
[2022-10-02] MEDS: ENOXAPARIN 40MG/0.4ML SYRINGE (J1650 PER 10MG) SC SCH (09:00)
[2022-10-02] MEDS: MIRALAX *UNIT DOSE* 17GM PACKET PO SCH (09:00)
[2022-10-02] MEDS: FUROSEMIDE 40 MG TAB PO SCH (09:57)
[2022-10-02] MEDS: CALCIUM/VITAMIN D 500 MG TAB PO SCH ×3 (09:57→19:16)
[2022-10-02] MEDS: DIMETHICONE 2% OINTMENT(VANICREAM) 70GM TUBE TOP SCH ×2 (09:58→19:16)
[2022-10-02] MEDS: RAMELTEON 8 MG TAB (ROZEREM) PO PRN (19:15)
[2022-10-02] MEDS: QUEtiapine FUMARATE 12.5 MG HALF-TAB PO SCH (19:16)
[2022-10-02] MEDS: ACETAMINOPHEN TAB 650MG DOSE (2X325MG) PO PRN (19:16)
[2022-10-03] MEDS: MIRALAX *UNIT DOSE* 17GM PACKET PO SCH (08:33)
[2022-10-03] MEDS: FUROSEMIDE 40 MG TAB PO SCH (08:34)
[2022-10-03] MEDS: METAMUCIL (PSYLLIUM) PACKET PO SCH (08:34)
[2022-10-03] MEDS: CALCIUM/VITAMIN D 500 MG TAB PO SCH ×3 (08:34→19:40)
[2022-10-03] MEDS: ENOXAPARIN 40MG/0.4ML SYRINGE (J1650 PER 10MG) SC SCH (08:34)
[2022-10-03] MEDS: DIMETHICONE 2% OINTMENT(VANICREAM) 70GM TUBE TOP SCH ×2 (08:34→19:40)
[2022-10-03] MEDS: RAMELTEON 8 MG TAB (ROZEREM) PO PRN (19:39)
[2022-10-03] MEDS: ACETAMINOPHEN TAB 650MG DOSE (2X325MG) PO PRN (19:39)
[2022-10-03] MEDS: QUEtiapine FUMARATE 12.5 MG HALF-TAB PO SCH (19:40)
[2022-10-04 04:52] VITALS: BP 138/86
[2022-10-04] MEDS: CALCIUM/VITAMIN D 500 MG TAB PO SCH ×3 (09:50→20:10)
[2022-10-04] MEDS: FUROSEMIDE 40 MG TAB PO SCH (09:51)
[2022-10-04] MEDS: DIMETHICONE 2% OINTMENT(VANICREAM) 70GM TUBE TOP SCH ×2 (09:53→20:12)
[2022-10-04] MEDS: ENOXAPARIN 40MG/0.4ML SYRINGE (J1650 PER 10MG) SC SCH (09:53)
[2022-10-04] MEDS: MIRALAX *UNIT DOSE* 17GM PACKET PO SCH (09:53)
[2022-10-04] MEDS: METAMUCIL (PSYLLIUM) PACKET PO SCH (09:53)
[2022-10-04 15:35] VITALS: BP 116/70
[2022-10-04] MEDS: OLANZapine ORAL DISINTEGRATING TAB 5MG PO PRN (15:56)
[2022-10-04] MEDS ORDERED: OLANZapine INTRAMUSCULAR 10MG VIAL IM PRN (19:35)
[2022-10-04] MEDS ORDERED: TEMAZEPAM 7.5 MG CAP PO ONE (19:35)
[2022-10-04] MEDS ORDERED: QUEtiapine FUMARATE 12.5 MG HALF-TAB PO ONE (19:35)
[2022-10-04] MEDS: QUEtiapine FUMARATE 12.5 MG HALF-TAB PO SCH (20:11)
[2022-10-05] MEDS: OLANZapine ORAL DISINTEGRATING TAB 5MG PO PRN (06:00)
[2022-10-05] MEDS: ACETAMINOPHEN TAB 650MG DOSE (2X325MG) PO PRN ×2 (06:00→22:07)
[2022-10-05 06:20] VITALS: BP 118/73
[2022-10-05] MEDS: MIRALAX *UNIT DOSE* 17GM PACKET PO SCH (09:28)
[2022-10-05] MEDS: CALCIUM/VITAMIN D 500 MG TAB PO SCH ×3 (09:28→22:07)
[2022-10-05] MEDS: METAMUCIL (PSYLLIUM) PACKET PO SCH (09:28)
[2022-10-05] MEDS: ENOXAPARIN 40MG/0.4ML SYRINGE (J1650 PER 10MG) SC SCH (09:29)
[2022-10-05] MEDS: FUROSEMIDE 40 MG TAB PO SCH (09:29)
[2022-10-05] MEDS: DIMETHICONE 2% OINTMENT(VANICREAM) 70GM TUBE TOP SCH ×2 (09:30→22:08)
[2022-10-05] MEDS: QUEtiapine FUMARATE 12.5 MG HALF-TAB PO SCH (22:07)
[2022-10-05] MEDS: RAMELTEON 8 MG TAB (ROZEREM) PO PRN (22:07)
[2022-10-06] MEDS ORDERED: guaiFENesin SYRUP 200MG 10ML UDC PO PRN (00:55)
[2022-10-06 05:45] VITALS: BP 133/77
[2022-10-06] MEDS: ENOXAPARIN 40MG/0.4ML SYRINGE (J1650 PER 10MG) SC SCH (08:21)
[2022-10-06] MEDS: METAMUCIL (PSYLLIUM) PACKET PO SCH (08:21)
[2022-10-06] MEDS: CALCIUM/VITAMIN D 500 MG TAB PO SCH ×3 (08:21→22:15)
[2022-10-06] MEDS: FUROSEMIDE 40 MG TAB PO SCH (08:21)
[2022-10-06] MEDS: MIRALAX *UNIT DOSE* 17GM PACKET PO SCH (08:21)
[2022-10-06] MEDS: DIMETHICONE 2% OINTMENT(VANICREAM) 70GM TUBE TOP SCH ×2 (08:22→22:15)
[2022-10-06] MEDS: FLUTICASONE PROP 0.05% NASAL SPRAY 16 GM (FLONASE) NARES SCH ×2 (08:22→21:00)
[2022-10-06] MEDS: OLANZapine ORAL DISINTEGRATING TAB 5MG PO PRN (16:58)
[2022-10-06] MEDS: QUEtiapine FUMARATE 12.5 MG HALF-TAB PO SCH (22:16)
[2022-10-07 06:00] VITALS: BP 132/78
[2022-10-07] MEDS: ENOXAPARIN 40MG/0.4ML SYRINGE (J1650 PER 10MG) SC SCH (08:42)
[2022-10-07] MEDS: MIRALAX *UNIT DOSE* 17GM PACKET PO SCH (08:42)
[2022-10-07] MEDS: CALCIUM/VITAMIN D 500 MG TAB PO SCH ×3 (08:42→20:18)
[2022-10-07] MEDS: FUROSEMIDE 40 MG TAB PO SCH (08:42)
[2022-10-07] MEDS: METAMUCIL (PSYLLIUM) PACKET PO SCH (08:42)
[2022-10-07] MEDS: FLUTICASONE PROP 0.05% NASAL SPRAY 16 GM (FLONASE) NARES SCH ×2 (08:44→20:25)
[2022-10-07] MEDS: DIMETHICONE 2% OINTMENT(VANICREAM) 70GM TUBE TOP SCH ×2 (08:44→20:21)
[2022-10-07] MEDS: OLANZapine ORAL DISINTEGRATING TAB 5MG PO PRN (15:28)
[2022-10-07] MEDS: QUEtiapine FUMARATE 12.5 MG HALF-TAB PO SCH (20:18)
[2022-10-07] MEDS: RAMELTEON 8 MG TAB (ROZEREM) PO PRN (20:18)
[2022-10-08] MEDS: OLANZapine ORAL DISINTEGRATING TAB 5MG PO PRN ×3 (03:17→20:03)
[2022-10-08 06:00] VITALS: BP 134/77
[2022-10-08] MEDS: CALCIUM/VITAMIN D 500 MG TAB PO SCH ×3 (09:49→20:03)
[2022-10-08] MEDS: ENOXAPARIN 40MG/0.4ML SYRINGE (J1650 PER 10MG) SC SCH (09:49)
[2022-10-08] MEDS: FLUTICASONE PROP 0.05% NASAL SPRAY 16 GM (FLONASE) NARES SCH ×2 (09:50→20:04)
[2022-10-08] MEDS: METAMUCIL (PSYLLIUM) PACKET PO SCH (09:50)
[2022-10-08] MEDS: FUROSEMIDE 40 MG TAB PO SCH (09:50)
[2022-10-08] MEDS: DIMETHICONE 2% OINTMENT(VANICREAM) 70GM TUBE TOP SCH ×2 (09:50→20:04)
[2022-10-08] MEDS: MIRALAX *UNIT DOSE* 17GM PACKET PO SCH (09:50)
[2022-10-08] MEDS: RAMELTEON 8 MG TAB (ROZEREM) PO PRN (20:03)
[2022-10-08] MEDS: QUEtiapine FUMARATE 12.5 MG HALF-TAB PO SCH (20:03)
[2022-10-09] MEDS: FLUTICASONE PROP 0.05% NASAL SPRAY 16 GM (FLONASE) NARES SCH ×3 (09:00→21:00)
[2022-10-09] MEDS: ENOXAPARIN 40MG/0.4ML SYRINGE (J1650 PER 10MG) SC SCH (09:48)
[2022-10-09] MEDS: MIRALAX *UNIT DOSE* 17GM PACKET PO SCH (09:49)
[2022-10-09] MEDS: CALCIUM/VITAMIN D 500 MG TAB PO SCH ×3 (09:49→20:56)
[2022-10-09] MEDS: FUROSEMIDE 40 MG TAB PO SCH (09:49)
[2022-10-09] MEDS: METAMUCIL (PSYLLIUM) PACKET PO SCH (09:49)
[2022-10-09] MEDS: DIMETHICONE 2% OINTMENT(VANICREAM) 70GM TUBE TOP SCH ×2 (09:50→20:57)
[2022-10-09 14:00] VITALS: BP 102/73
[2022-10-09] MEDS: OLANZapine ORAL DISINTEGRATING TAB 5MG PO PRN (15:35)
[2022-10-09] MEDS: RAMELTEON 8 MG TAB (ROZEREM) PO PRN (20:56)
[2022-10-09] MEDS: QUEtiapine FUMARATE 12.5 MG HALF-TAB PO SCH (20:56)
[2022-10-09] MEDS: ACETAMINOPHEN TAB 650MG DOSE (2X325MG) PO PRN (20:56)
[2022-10-10 06:00] VITALS: BP 145/83
[2022-10-10] MEDS: CALCIUM/VITAMIN D 500 MG TAB PO SCH ×3 (09:24→22:00)
[2022-10-10] MEDS: METAMUCIL (PSYLLIUM) PACKET PO SCH (09:24)
[2022-10-10] MEDS: FLUTICASONE PROP 0.05% NASAL SPRAY 16 GM (FLONASE) NARES SCH (09:24)
[2022-10-10] MEDS: FUROSEMIDE 40 MG TAB PO SCH (09:24)
[2022-10-10] MEDS: MIRALAX *UNIT DOSE* 17GM PACKET PO SCH (09:24)
[2022-10-10] MEDS: ENOXAPARIN 40MG/0.4ML SYRINGE (J1650 PER 10MG) SC SCH (09:24)
[2022-10-10] MEDS: DIMETHICONE 2% OINTMENT(VANICREAM) 70GM TUBE TOP SCH (09:24)
[2022-10-10] MEDS: OLANZapine ORAL DISINTEGRATING TAB 5MG PO PRN (18:41)
[2022-10-11] MEDS: QUEtiapine FUMARATE 12.5 MG HALF-TAB PO SCH ×2 (01:37→22:42)
[2022-10-11] MEDS: DIMETHICONE 2% OINTMENT(VANICREAM) 70GM TUBE TOP SCH ×3 (01:38→21:00)
[2022-10-11] MEDS: FLUTICASONE PROP 0.05% NASAL SPRAY 16 GM (FLONASE) NARES SCH ×3 (01:38→21:00)
[2022-10-11 06:00] VITALS: BP 142/79
[2022-10-11] MEDS: OLANZapine ORAL DISINTEGRATING TAB 5MG PO PRN ×2 (07:46→14:08)
[2022-10-11] MEDS: CALCIUM/VITAMIN D 500 MG TAB PO SCH ×3 (07:46→21:00)
[2022-10-11] MEDS: METAMUCIL (PSYLLIUM) PACKET PO SCH (07:47)
[2022-10-11] MEDS: FUROSEMIDE 40 MG TAB PO SCH (07:47)
[2022-10-11] MEDS: MIRALAX *UNIT DOSE* 17GM PACKET PO SCH (07:47)
[2022-10-11] MEDS: ENOXAPARIN 40MG/0.4ML SYRINGE (J1650 PER 10MG) SC SCH (07:48)
[2022-10-11] MEDS: RAMELTEON 8 MG TAB (ROZEREM) PO PRN (22:43)
[2022-10-12 06:50] VITALS: BP 160/78
[2022-10-12] MEDS: FUROSEMIDE 40 MG TAB PO SCH (08:53)
[2022-10-12] MEDS: CALCIUM/VITAMIN D 500 MG TAB PO SCH ×3 (08:53→21:00)
[2022-10-12] MEDS: OLANZapine ORAL DISINTEGRATING TAB 5MG PO PRN ×2 (08:53→15:31)
[2022-10-12] MEDS: MIRALAX *UNIT DOSE* 17GM PACKET PO SCH (08:53)
[2022-10-12] MEDS: METAMUCIL (PSYLLIUM) PACKET PO SCH (08:54)
[2022-10-12] MEDS: FLUTICASONE PROP 0.05% NASAL SPRAY 16 GM (FLONASE) NARES SCH ×3 (08:54→21:00)
[2022-10-12] MEDS: ENOXAPARIN 40MG/0.4ML SYRINGE (J1650 PER 10MG) SC SCH ×2 (08:54→08:58)
[2022-10-12] MEDS: DIMETHICONE 2% OINTMENT(VANICREAM) 70GM TUBE TOP SCH ×2 (09:00→21:00)
[2022-10-12] MEDS: diphenhydrAMINE 50MG CAP PO PRN (17:18)
[2022-10-12] MEDS: QUEtiapine FUMARATE 12.5 MG HALF-TAB PO SCH (20:51)
[2022-10-12] MEDS: RAMELTEON 8 MG TAB (ROZEREM) PO PRN (20:51)
[2022-10-13] MEDS: diphenhydrAMINE 50MG CAP PO PRN ×2 (02:31→19:48)
[2022-10-13 06:00] VITALS: BP 136/75
[2022-10-13] MEDS: FUROSEMIDE 40 MG TAB PO SCH (09:28)
[2022-10-13] MEDS: MIRALAX *UNIT DOSE* 17GM PACKET PO SCH (09:28)
[2022-10-13] MEDS: METAMUCIL (PSYLLIUM) PACKET PO SCH (09:28)
[2022-10-13] MEDS: CALCIUM/VITAMIN D 500 MG TAB PO SCH ×3 (09:28→19:48)
[2022-10-13] MEDS: ENOXAPARIN 40MG/0.4ML SYRINGE (J1650 PER 10MG) SC SCH (09:28)
[2022-10-13] MEDS: FLUTICASONE PROP 0.05% NASAL SPRAY 16 GM (FLONASE) NARES SCH ×2 (09:28→19:48)
[2022-10-13] MEDS: DIMETHICONE 2% OINTMENT(VANICREAM) 70GM TUBE TOP SCH ×2 (09:29→19:48)
[2022-10-13] MEDS: OLANZapine ORAL DISINTEGRATING TAB 5MG PO PRN ×2 (14:47→19:48)
[2022-10-13] MEDS: RAMELTEON 8 MG TAB (ROZEREM) PO PRN (19:48)
[2022-10-13] MEDS: QUEtiapine FUMARATE 12.5 MG HALF-TAB PO SCH (19:48)
[2022-10-14] MEDS: METAMUCIL (PSYLLIUM) PACKET PO SCH (09:49)
[2022-10-14] MEDS: MIRALAX *UNIT DOSE* 17GM PACKET PO SCH (09:49)
[2022-10-14] MEDS: FUROSEMIDE 40 MG TAB PO SCH (09:49)
[2022-10-14] MEDS: ENOXAPARIN 40MG/0.4ML SYRINGE (J1650 PER 10MG) SC SCH (09:49)
[2022-10-14] MEDS: CALCIUM/VITAMIN D 500 MG TAB PO SCH ×3 (09:49→20:37)
[2022-10-14] MEDS: DIMETHICONE 2% OINTMENT(VANICREAM) 70GM TUBE TOP SCH ×2 (09:49→20:38)
[2022-10-14] MEDS: FLUTICASONE PROP 0.05% NASAL SPRAY 16 GM (FLONASE) NARES SCH ×2 (09:50→20:37)
[2022-10-14] MEDS: QUEtiapine FUMARATE 12.5 MG HALF-TAB PO SCH (20:37)
[2022-10-14] MEDS: RAMELTEON 8 MG TAB (ROZEREM) PO PRN (20:37)
[2022-10-15 06:00] VITALS: BP 129/81
[2022-10-15] MEDS: CALCIUM/VITAMIN D 500 MG TAB PO SCH ×3 (07:52→18:37)
[2022-10-15] MEDS: METAMUCIL (PSYLLIUM) PACKET PO SCH (07:55)
[2022-10-15] MEDS: FUROSEMIDE 40 MG TAB PO SCH (07:55)
[2022-10-15] MEDS: FLUTICASONE PROP 0.05% NASAL SPRAY 16 GM (FLONASE) NARES SCH ×2 (07:55→18:37)
[2022-10-15] MEDS: MIRALAX *UNIT DOSE* 17GM PACKET PO SCH (07:55)
[2022-10-15] MEDS: ENOXAPARIN 40MG/0.4ML SYRINGE (J1650 PER 10MG) SC SCH ×2 (07:55→08:00)
[2022-10-15] MEDS: DIMETHICONE 2% OINTMENT(VANICREAM) 70GM TUBE TOP SCH ×2 (07:55→18:37)
[2022-10-15] MEDS: OLANZapine ORAL DISINTEGRATING TAB 5MG PO PRN ×2 (15:29→19:33)
[2022-10-15] MEDS: QUEtiapine FUMARATE 12.5 MG HALF-TAB PO SCH (18:37)
[2022-10-15] MEDS: diphenhydrAMINE 50MG CAP PO PRN (19:33)
[2022-10-15] MEDS: RAMELTEON 8 MG TAB (ROZEREM) PO PRN (19:33)
[2022-10-16] MEDS: CALCIUM/VITAMIN D 500 MG TAB PO SCH ×3 (07:55→20:34)
[2022-10-16] MEDS: FUROSEMIDE 40 MG TAB PO SCH (07:55)
[2022-10-16] MEDS: METAMUCIL (PSYLLIUM) PACKET PO SCH (07:55)
[2022-10-16] MEDS: MIRALAX *UNIT DOSE* 17GM PACKET PO SCH (07:55)
[2022-10-16] MEDS: FLUTICASONE PROP 0.05% NASAL SPRAY 16 GM (FLONASE) NARES SCH ×2 (07:56→20:34)
[2022-10-16] MEDS: ENOXAPARIN 40MG/0.4ML SYRINGE (J1650 PER 10MG) SC SCH (07:56)
[2022-10-16] MEDS: DIMETHICONE 2% OINTMENT(VANICREAM) 70GM TUBE TOP SCH ×2 (07:57→20:34)
[2022-10-16] MEDS: RAMELTEON 8 MG TAB (ROZEREM) PO PRN (20:33)
[2022-10-16] MEDS: diphenhydrAMINE 50MG CAP PO PRN (20:34)
[2022-10-16] MEDS: QUEtiapine FUMARATE 12.5 MG HALF-TAB PO SCH (20:34)
[2022-10-17] MEDS: METAMUCIL (PSYLLIUM) PACKET PO SCH (09:24)
[2022-10-17] MEDS: MIRALAX *UNIT DOSE* 17GM PACKET PO SCH (09:24)
[2022-10-17] MEDS: DIMETHICONE 2% OINTMENT(VANICREAM) 70GM TUBE TOP SCH ×2 (09:24→19:22)
[2022-10-17] MEDS: FUROSEMIDE 40 MG TAB PO SCH (09:24)
[2022-10-17] MEDS: ENOXAPARIN 40MG/0.4ML SYRINGE (J1650 PER 10MG) SC SCH (09:24)
[2022-10-17] MEDS: CALCIUM/VITAMIN D 500 MG TAB PO SCH ×3 (09:24→19:21)
[2022-10-17] MEDS: FLUTICASONE PROP 0.05% NASAL SPRAY 16 GM (FLONASE) NARES SCH ×2 (09:25→19:21)
[2022-10-17] MEDS: diphenhydrAMINE 50MG CAP PO PRN (19:21)
[2022-10-17] MEDS: OLANZapine ORAL DISINTEGRATING TAB 5MG PO PRN (19:21)
[2022-10-17] MEDS: RAMELTEON 8 MG TAB (ROZEREM) PO PRN (19:21)
[2022-10-17] MEDS: QUEtiapine FUMARATE 12.5 MG HALF-TAB PO SCH (19:21)
[2022-10-18] MEDS: CALCIUM/VITAMIN D 500 MG TAB PO SCH ×3 (08:17→19:33)
[2022-10-18] MEDS: METAMUCIL (PSYLLIUM) PACKET PO SCH (08:17)
[2022-10-18] MEDS: MIRALAX *UNIT DOSE* 17GM PACKET PO SCH (08:17)
[2022-10-18] MEDS: ENOXAPARIN 40MG/0.4ML SYRINGE (J1650 PER 10MG) SC SCH ×2 (08:18→08:27)
[2022-10-18] MEDS: FUROSEMIDE 40 MG TAB PO SCH (08:18)
[2022-10-18] MEDS: FLUTICASONE PROP 0.05% NASAL SPRAY 16 GM (FLONASE) NARES SCH ×2 (08:19→19:33)
[2022-10-18] MEDS: DIMETHICONE 2% OINTMENT(VANICREAM) 70GM TUBE TOP SCH ×2 (08:19→19:33)
[2022-10-18] MEDS: OLANZapine ORAL DISINTEGRATING TAB 5MG PO PRN ×2 (09:48→19:33)
[2022-10-18] MEDS: RAMELTEON 8 MG TAB (ROZEREM) PO PRN (19:33)
[2022-10-18] MEDS: diphenhydrAMINE 50MG CAP PO PRN (19:33)
[2022-10-18] MEDS: QUEtiapine FUMARATE 12.5 MG HALF-TAB PO SCH (19:33)
[2022-10-19 07:02] VITALS: BP 131/75
[2022-10-19] MEDS: METAMUCIL (PSYLLIUM) PACKET PO SCH (08:13)
[2022-10-19] MEDS: FLUTICASONE PROP 0.05% NASAL SPRAY 16 GM (FLONASE) NARES SCH ×2 (08:14→19:41)
[2022-10-19] MEDS: CALCIUM/VITAMIN D 500 MG TAB PO SCH ×3 (08:14→19:41)
[2022-10-19] MEDS: FUROSEMIDE 40 MG TAB PO SCH (08:14)
[2022-10-19] MEDS: MIRALAX *UNIT DOSE* 17GM PACKET PO SCH (08:14)
[2022-10-19] MEDS: ENOXAPARIN 40MG/0.4ML SYRINGE (J1650 PER 10MG) SC SCH (08:14)
[2022-10-19] MEDS: DIMETHICONE 2% OINTMENT(VANICREAM) 70GM TUBE TOP SCH ×2 (08:15→19:41)
[2022-10-19] MEDS: OLANZapine ORAL DISINTEGRATING TAB 5MG PO PRN ×2 (13:21→19:42)
[2022-10-19] MEDS: diphenhydrAMINE 50MG CAP PO PRN ×2 (15:16→20:00)
[2022-10-19] MEDS: QUEtiapine FUMARATE 12.5 MG HALF-TAB PO SCH (19:41)
[2022-10-19] MEDS: RAMELTEON 8 MG TAB (ROZEREM) PO PRN (19:42)
[2022-10-20] MEDS: diphenhydrAMINE 50MG CAP PO PRN (00:07)
[2022-10-20 06:40] VITALS: BP 130/75
[2022-10-20] MEDS: ENOXAPARIN 40MG/0.4ML SYRINGE (J1650 PER 10MG) SC SCH (10:27)
[2022-10-20] MEDS: FLUTICASONE PROP 0.05% NASAL SPRAY 16 GM (FLONASE) NARES SCH ×2 (10:27→19:56)
[2022-10-20] MEDS: MIRALAX *UNIT DOSE* 17GM PACKET PO SCH (10:28)
[2022-10-20] MEDS: CALCIUM/VITAMIN D 500 MG TAB PO SCH ×3 (10:28→19:56)
[2022-10-20] MEDS: METAMUCIL (PSYLLIUM) PACKET PO SCH (10:28)
[2022-10-20] MEDS: FUROSEMIDE 40 MG TAB PO SCH (10:29)
[2022-10-20] MEDS: DIMETHICONE 2% OINTMENT(VANICREAM) 70GM TUBE TOP SCH ×2 (10:39→19:57)
[2022-10-20] MEDS: RAMELTEON 8 MG TAB (ROZEREM) PO PRN (19:56)
[2022-10-20] MEDS: ACETAMINOPHEN TAB 650MG DOSE (2X325MG) PO PRN (19:56)
[2022-10-20] MEDS: QUEtiapine FUMARATE 12.5 MG HALF-TAB PO SCH (19:56)
[2022-10-21 06:00] VITALS: BP 130/73
[2022-10-21] MEDS: MIRALAX *UNIT DOSE* 17GM PACKET PO SCH (09:54)
[2022-10-21] MEDS: METAMUCIL (PSYLLIUM) PACKET PO SCH (09:54)
[2022-10-21] MEDS: FLUTICASONE PROP 0.05% NASAL SPRAY 16 GM (FLONASE) NARES SCH ×2 (09:56→20:06)
[2022-10-21] MEDS: CALCIUM/VITAMIN D 500 MG TAB PO SCH ×3 (09:56→20:06)
[2022-10-21] MEDS: ENOXAPARIN 40MG/0.4ML SYRINGE (J1650 PER 10MG) SC SCH (09:56)
[2022-10-21] MEDS: DIMETHICONE 2% OINTMENT(VANICREAM) 70GM TUBE TOP SCH ×2 (09:56→20:07)
[2022-10-21] MEDS: FUROSEMIDE 40 MG TAB PO SCH (09:57)
[2022-10-21] MEDS: QUEtiapine FUMARATE 12.5 MG HALF-TAB PO SCH (20:06)
[2022-10-21] MEDS: diphenhydrAMINE 50MG CAP PO PRN (20:07)
[2022-10-21] MEDS: RAMELTEON 8 MG TAB (ROZEREM) PO PRN (20:07)
[2022-10-21] MEDS: OLANZapine ORAL DISINTEGRATING TAB 5MG PO PRN (20:07)
[2022-10-22] MEDS: diphenhydrAMINE 50MG CAP PO PRN (02:42)
[2022-10-22 05:30] VITALS: BP 128/78
[2022-10-22] MEDS: FUROSEMIDE 40 MG TAB PO SCH (09:17)
[2022-10-22] MEDS: OLANZapine ORAL DISINTEGRATING TAB 5MG PO PRN (09:17)
[2022-10-22] MEDS: CALCIUM/VITAMIN D 500 MG TAB PO SCH ×3 (09:17→19:30)
[2022-10-22] MEDS: MIRALAX *UNIT DOSE* 17GM PACKET PO SCH (09:18)
[2022-10-22] MEDS: ENOXAPARIN 40MG/0.4ML SYRINGE (J1650 PER 10MG) SC SCH (09:18)
[2022-10-22] MEDS: METAMUCIL (PSYLLIUM) PACKET PO SCH (09:18)
[2022-10-22] MEDS: DIMETHICONE 2% OINTMENT(VANICREAM) 70GM TUBE TOP SCH ×2 (09:18→19:30)
[2022-10-22] MEDS: FLUTICASONE PROP 0.05% NASAL SPRAY 16 GM (FLONASE) NARES SCH ×2 (09:18→19:30)
[2022-10-22] MEDS: ACETAMINOPHEN TAB 650MG DOSE (2X325MG) PO PRN (17:53)
[2022-10-22] MEDS: QUEtiapine FUMARATE 12.5 MG HALF-TAB PO SCH (19:30)
[2022-10-23 05:00] VITALS: BP 148/94
[2022-10-23] MEDS: FUROSEMIDE 40 MG TAB PO SCH (08:44)
[2022-10-23] MEDS: CALCIUM/VITAMIN D 500 MG TAB PO SCH ×3 (08:44→20:03)
[2022-10-23] MEDS: FLUTICASONE PROP 0.05% NASAL SPRAY 16 GM (FLONASE) NARES SCH ×2 (08:44→20:04)
[2022-10-23] MEDS: METAMUCIL (PSYLLIUM) PACKET PO SCH (08:44)
[2022-10-23] MEDS: MIRALAX *UNIT DOSE* 17GM PACKET PO SCH (08:44)
[2022-10-23] MEDS: DIMETHICONE 2% OINTMENT(VANICREAM) 70GM TUBE TOP SCH ×2 (08:45→20:04)
[2022-10-23] MEDS: ENOXAPARIN 40MG/0.4ML SYRINGE (J1650 PER 10MG) SC SCH (08:46)
[2022-10-23] MEDS: QUEtiapine FUMARATE 12.5 MG HALF-TAB PO SCH (20:03)
[2022-10-23] MEDS: diphenhydrAMINE 50MG CAP PO PRN (20:04)
[2022-10-23] MEDS: RAMELTEON 8 MG TAB (ROZEREM) PO PRN (20:04)
[2022-10-23] MEDS: ACETAMINOPHEN TAB 650MG DOSE (2X325MG) PO PRN (20:04)
[2022-10-23] MEDS: OLANZapine ORAL DISINTEGRATING TAB 5MG PO PRN (23:19)
[2022-10-24] MEDS: diphenhydrAMINE 50MG CAP PO PRN ×2 (00:33→19:59)
[2022-10-24 06:00] VITALS: BP 102/60
[2022-10-24] MEDS: CALCIUM/VITAMIN D 500 MG TAB PO SCH ×3 (08:04→19:59)
[2022-10-24] MEDS: MIRALAX *UNIT DOSE* 17GM PACKET PO SCH (08:05)
[2022-10-24] MEDS: METAMUCIL (PSYLLIUM) PACKET PO SCH (08:05)
[2022-10-24] MEDS: ENOXAPARIN 40MG/0.4ML SYRINGE (J1650 PER 10MG) SC SCH (08:05)
[2022-10-24] MEDS: DIMETHICONE 2% OINTMENT(VANICREAM) 70GM TUBE TOP SCH ×2 (08:06→19:59)
[2022-10-24] MEDS: FLUTICASONE PROP 0.05% NASAL SPRAY 16 GM (FLONASE) NARES SCH ×2 (08:06→19:59)
[2022-10-24] MEDS: FUROSEMIDE 40 MG TAB PO SCH (08:06)
[2022-10-24] MEDS: ACETAMINOPHEN TAB 650MG DOSE (2X325MG) PO PRN (16:38)
[2022-10-24] MEDS: QUEtiapine FUMARATE 25 MG TAB PO SCH (19:59)
[2022-10-24] MEDS: RAMELTEON 8 MG TAB (ROZEREM) PO PRN (19:59)
[2022-10-24 20:00] VITALS: BP 131/75
[2022-10-25] MEDS: diphenhydrAMINE 50MG CAP PO PRN ×2 (01:58→19:43)
[2022-10-25 06:44] VITALS: BP 122/67
[2022-10-25] MEDS: METAMUCIL (PSYLLIUM) PACKET PO SCH (09:52)
[2022-10-25] MEDS: FUROSEMIDE 40 MG TAB PO SCH (09:52)
[2022-10-25] MEDS: MIRALAX *UNIT DOSE* 17GM PACKET PO SCH (09:52)
[2022-10-25] MEDS: CALCIUM/VITAMIN D 500 MG TAB PO SCH ×3 (09:52→19:43)
[2022-10-25] MEDS: ENOXAPARIN 40MG/0.4ML SYRINGE (J1650 PER 10MG) SC SCH (09:53)
[2022-10-25] MEDS: DIMETHICONE 2% OINTMENT(VANICREAM) 70GM TUBE TOP SCH ×2 (09:53→19:52)
[2022-10-25] MEDS: FLUTICASONE PROP 0.05% NASAL SPRAY 16 GM (FLONASE) NARES SCH ×2 (09:53→19:43)
[2022-10-25] MEDS: ACETAMINOPHEN TAB 650MG DOSE (2X325MG) PO PRN (16:50)
[2022-10-25] MEDS: QUEtiapine FUMARATE 25 MG TAB PO SCH (19:43)
[2022-10-25] MEDS: OLANZapine ORAL DISINTEGRATING TAB 5MG PO PRN (19:43)
[2022-10-25] MEDS: RAMELTEON 8 MG TAB (ROZEREM) PO PRN (19:43)
[2022-10-26 06:00] VITALS: BP 147/91
[2022-10-26] MEDS: METAMUCIL (PSYLLIUM) PACKET PO SCH (10:01)
[2022-10-26] MEDS: CALCIUM/VITAMIN D 500 MG TAB PO SCH ×3 (10:01→19:42)
[2022-10-26] MEDS: FUROSEMIDE 40 MG TAB PO SCH (10:01)
[2022-10-26] MEDS: MIRALAX *UNIT DOSE* 17GM PACKET PO SCH (10:01)
[2022-10-26] MEDS: DIMETHICONE 2% OINTMENT(VANICREAM) 70GM TUBE TOP SCH ×2 (10:02→21:00)
[2022-10-26] MEDS: FLUTICASONE PROP 0.05% NASAL SPRAY 16 GM (FLONASE) NARES SCH ×2 (10:02→21:00)
[2022-10-26] MEDS: ENOXAPARIN 40MG/0.4ML SYRINGE (J1650 PER 10MG) SC SCH (10:02)
[2022-10-26] MEDS: OLANZapine ORAL DISINTEGRATING TAB 5MG PO PRN ×2 (12:46→17:04)
[2022-10-26] MEDS: QUEtiapine FUMARATE 25 MG TAB PO SCH (19:42)
[2022-10-26] MEDS: RAMELTEON 8 MG TAB (ROZEREM) PO PRN (19:42)
[2022-10-26] MEDS: ACETAMINOPHEN TAB 650MG DOSE (2X325MG) PO PRN (19:43)
[2022-10-26] MEDS: diphenhydrAMINE 50MG CAP PO PRN (19:43)
[2022-10-27 07:33] VITALS: BP 138/87
[2022-10-27] MEDS: CALCIUM/VITAMIN D 500 MG TAB PO SCH ×3 (09:55→20:00)
[2022-10-27] MEDS: FUROSEMIDE 40 MG TAB PO SCH (09:55)
[2022-10-27] MEDS: MIRALAX *UNIT DOSE* 17GM PACKET PO SCH (09:55)
[2022-10-27] MEDS: METAMUCIL (PSYLLIUM) PACKET PO SCH (09:55)
[2022-10-27] MEDS: DIMETHICONE 2% OINTMENT(VANICREAM) 70GM TUBE TOP SCH ×2 (09:56→20:02)
[2022-10-27] MEDS: FLUTICASONE PROP 0.05% NASAL SPRAY 16 GM (FLONASE) NARES SCH ×2 (09:56→20:05)
[2022-10-27] MEDS: ENOXAPARIN 40MG/0.4ML SYRINGE (J1650 PER 10MG) SC SCH (09:56)
[2022-10-27] MEDS: ACETAMINOPHEN TAB 650MG DOSE (2X325MG) PO PRN (18:08)
[2022-10-27] MEDS: RAMELTEON 8 MG TAB (ROZEREM) PO PRN (20:00)
[2022-10-27] MEDS: QUEtiapine FUMARATE 25 MG TAB PO SCH (20:00)
[2022-10-28 05:18] VITALS: BP 140/86
[2022-10-28 09:38] VITALS: BP 121/74
[2022-10-28] MEDS: METAMUCIL (PSYLLIUM) PACKET PO SCH (09:40)
[2022-10-28] MEDS: DIMETHICONE 2% OINTMENT(VANICREAM) 70GM TUBE TOP SCH ×2 (09:40→19:42)
[2022-10-28] MEDS: FLUTICASONE PROP 0.05% NASAL SPRAY 16 GM (FLONASE) NARES SCH ×2 (09:40→19:57)
[2022-10-28] MEDS: ENOXAPARIN 40MG/0.4ML SYRINGE (J1650 PER 10MG) SC SCH (09:40)
[2022-10-28] MEDS: MIRALAX *UNIT DOSE* 17GM PACKET PO SCH (09:40)
[2022-10-28] MEDS: FUROSEMIDE 40 MG TAB PO SCH (09:41)
[2022-10-28] MEDS: CALCIUM/VITAMIN D 500 MG TAB PO SCH ×3 (09:44→19:41)
[2022-10-28] MEDS: RAMELTEON 8 MG TAB (ROZEREM) PO PRN (19:41)
[2022-10-28] MEDS: OLANZapine ORAL DISINTEGRATING TAB 5MG PO PRN ×2 (19:41→23:59)
[2022-10-28] MEDS: diphenhydrAMINE 50MG CAP PO PRN ×2 (19:41→23:58)
[2022-10-28] MEDS: QUEtiapine FUMARATE 25 MG TAB PO SCH (19:42)
[2022-10-28] MEDS: ACETAMINOPHEN TAB 650MG DOSE (2X325MG) PO PRN (19:42)
[2022-10-29 06:00] VITALS: BP 134/81
[2022-10-29 09:15] VITALS: BP 121/75
[2022-10-29] MEDS: METAMUCIL (PSYLLIUM) PACKET PO SCH (09:15)
[2022-10-29] MEDS: MIRALAX *UNIT DOSE* 17GM PACKET PO SCH (09:15)
[2022-10-29] MEDS: FUROSEMIDE 40 MG TAB PO SCH (09:16)
[2022-10-29] MEDS: ENOXAPARIN 40MG/0.4ML SYRINGE (J1650 PER 10MG) SC SCH (09:16)
[2022-10-29] MEDS: DIMETHICONE 2% OINTMENT(VANICREAM) 70GM TUBE TOP SCH ×2 (09:16→20:11)
[2022-10-29] MEDS: FLUTICASONE PROP 0.05% NASAL SPRAY 16 GM (FLONASE) NARES SCH ×2 (09:16→20:11)
[2022-10-29] MEDS: CALCIUM/VITAMIN D 500 MG TAB PO SCH ×3 (09:16→20:10)
[2022-10-29] MEDS: QUEtiapine FUMARATE 25 MG TAB PO SCH (20:10)
[2022-10-29] MEDS: diphenhydrAMINE 50MG CAP PO PRN (20:10)
[2022-10-29] MEDS: ACETAMINOPHEN TAB 650MG DOSE (2X325MG) PO PRN (20:10)
[2022-10-29] MEDS: OLANZapine ORAL DISINTEGRATING TAB 5MG PO PRN (20:10)
[2022-10-29] MEDS: RAMELTEON 8 MG TAB (ROZEREM) PO PRN (20:10)
[2022-10-30] MEDS: FUROSEMIDE 40 MG TAB PO SCH (09:09)
[2022-10-30] MEDS: CALCIUM/VITAMIN D 500 MG TAB PO SCH ×3 (09:09→22:04)
[2022-10-30] MEDS: METAMUCIL (PSYLLIUM) PACKET PO SCH (09:11)
[2022-10-30] MEDS: MIRALAX *UNIT DOSE* 17GM PACKET PO SCH (09:12)
[2022-10-30] MEDS: FLUTICASONE PROP 0.05% NASAL SPRAY 16 GM (FLONASE) NARES SCH ×2 (09:12→21:00)
[2022-10-30] MEDS: ENOXAPARIN 40MG/0.4ML SYRINGE (J1650 PER 10MG) SC SCH (09:16)
[2022-10-30] MEDS: DIMETHICONE 2% OINTMENT(VANICREAM) 70GM TUBE TOP SCH ×2 (09:16→22:10)
[2022-10-30] MEDS: OLANZapine ORAL DISINTEGRATING TAB 5MG PO PRN (22:03)
[2022-10-30] MEDS: RAMELTEON 8 MG TAB (ROZEREM) PO PRN (22:03)
[2022-10-30] MEDS: diphenhydrAMINE 50MG CAP PO PRN (22:04)
[2022-10-30] MEDS: ACETAMINOPHEN TAB 650MG DOSE (2X325MG) PO PRN (22:04)
[2022-10-30] MEDS: QUEtiapine FUMARATE 25 MG TAB PO SCH (22:04)
[2022-10-31 06:42] VITALS: BP 116/60
[2022-10-31] MEDS: MIRALAX *UNIT DOSE* 17GM PACKET PO SCH (11:33)
[2022-10-31] MEDS: CALCIUM/VITAMIN D 500 MG TAB PO SCH ×3 (11:33→21:43)
[2022-10-31] MEDS: ENOXAPARIN 40MG/0.4ML SYRINGE (J1650 PER 10MG) SC SCH (11:33)
[2022-10-31] MEDS: METAMUCIL (PSYLLIUM) PACKET PO SCH (11:34)
[2022-10-31] MEDS: FUROSEMIDE 40 MG TAB PO SCH (11:34)
[2022-10-31] MEDS: DIMETHICONE 2% OINTMENT(VANICREAM) 70GM TUBE TOP SCH ×2 (11:35→21:44)
[2022-10-31] MEDS: FLUTICASONE PROP 0.05% NASAL SPRAY 16 GM (FLONASE) NARES SCH ×2 (11:35→21:43)
[2022-10-31] MEDS: RAMELTEON 8 MG TAB (ROZEREM) PO PRN (21:43)
[2022-10-31] MEDS: OLANZapine ORAL DISINTEGRATING TAB 5MG PO PRN (21:43)
[2022-10-31] MEDS: QUEtiapine FUMARATE 25 MG TAB PO SCH (21:43)
[2022-11-01 06:09] VITALS: BP 147/78
[2022-11-01] MEDS: ENOXAPARIN 40MG/0.4ML SYRINGE (J1650 PER 10MG) SC SCH (09:00)
[2022-11-01] MEDS: METAMUCIL (PSYLLIUM) PACKET PO SCH (09:00)
[2022-11-01] MEDS: MIRALAX *UNIT DOSE* 17GM PACKET PO SCH (11:07)
[2022-11-01] MEDS: FLUTICASONE PROP 0.05% NASAL SPRAY 16 GM (FLONASE) NARES SCH ×2 (11:08→20:12)
[2022-11-01] MEDS: FUROSEMIDE 40 MG TAB PO SCH (11:08)
[2022-11-01] MEDS: CALCIUM/VITAMIN D 500 MG TAB PO SCH ×3 (11:08→20:12)
[2022-11-01] MEDS: DIMETHICONE 2% OINTMENT(VANICREAM) 70GM TUBE TOP SCH ×2 (11:10→20:12)
[2022-11-01] MEDS: QUEtiapine FUMARATE 25 MG TAB PO SCH (20:12)
[2022-11-01] MEDS: RAMELTEON 8 MG TAB (ROZEREM) PO PRN (20:12)
[2022-11-02] MEDS: CALCIUM/VITAMIN D 500 MG TAB PO SCH ×3 (09:45→20:29)
[2022-11-02] MEDS: MIRALAX *UNIT DOSE* 17GM PACKET PO SCH (09:45)
[2022-11-02] MEDS: FUROSEMIDE 40 MG TAB PO SCH (09:45)
[2022-11-02] MEDS: METAMUCIL (PSYLLIUM) PACKET PO SCH (09:45)
[2022-11-02] MEDS: FLUTICASONE PROP 0.05% NASAL SPRAY 16 GM (FLONASE) NARES SCH ×2 (09:46→20:30)
[2022-11-02] MEDS: DIMETHICONE 2% OINTMENT(VANICREAM) 70GM TUBE TOP SCH ×2 (09:46→20:29)
[2022-11-02] MEDS: ENOXAPARIN 40MG/0.4ML SYRINGE (J1650 PER 10MG) SC SCH (09:46)
[2022-11-02 09:54] VITALS: BP 125/75
[2022-11-02] MEDS: QUEtiapine FUMARATE 25 MG TAB PO SCH (20:29)
[2022-11-02] MEDS: RAMELTEON 8 MG TAB (ROZEREM) PO PRN (20:29)
[2022-11-02] MEDS: ACETAMINOPHEN TAB 650MG DOSE (2X325MG) PO PRN (20:30)
[2022-11-03] MEDS: diphenhydrAMINE 50MG CAP PO PRN ×2 (01:15→20:38)
[2022-11-03] MEDS: OLANZapine ORAL DISINTEGRATING TAB 5MG PO PRN ×2 (01:52→20:15)
[2022-11-03] MEDS: CALCIUM/VITAMIN D 500 MG TAB PO SCH ×3 (08:52→20:05)
[2022-11-03] MEDS: FUROSEMIDE 40 MG TAB PO SCH (08:52)
[2022-11-03] MEDS: ENOXAPARIN 40MG/0.4ML SYRINGE (J1650 PER 10MG) SC SCH (08:53)
[2022-11-03] MEDS: MIRALAX *UNIT DOSE* 17GM PACKET PO SCH (08:53)
[2022-11-03] MEDS: METAMUCIL (PSYLLIUM) PACKET PO SCH (08:53)
[2022-11-03] MEDS: DIMETHICONE 2% OINTMENT(VANICREAM) 70GM TUBE TOP SCH ×2 (09:00→20:07)
[2022-11-03] MEDS: FLUTICASONE PROP 0.05% NASAL SPRAY 16 GM (FLONASE) NARES SCH ×2 (09:00→20:07)
[2022-11-03] MEDS: RAMELTEON 8 MG TAB (ROZEREM) PO PRN (20:06)
[2022-11-03] MEDS: QUEtiapine FUMARATE 25 MG TAB PO SCH (20:06)
[2022-11-03] MEDS: ACETAMINOPHEN TAB 650MG DOSE (2X325MG) PO PRN (20:38)
[2022-11-04 06:42] VITALS: BP 124/82
[2022-11-04] MEDS: METAMUCIL (PSYLLIUM) PACKET PO SCH (09:17)
[2022-11-04] MEDS: MIRALAX *UNIT DOSE* 17GM PACKET PO SCH (09:17)
[2022-11-04] MEDS: FLUTICASONE PROP 0.05% NASAL SPRAY 16 GM (FLONASE) NARES SCH ×2 (09:18→20:06)
[2022-11-04] MEDS: DIMETHICONE 2% OINTMENT(VANICREAM) 70GM TUBE TOP SCH ×2 (09:18→20:07)
[2022-11-04] MEDS: FUROSEMIDE 40 MG TAB PO SCH (09:18)
[2022-11-04] MEDS: ENOXAPARIN 40MG/0.4ML SYRINGE (J1650 PER 10MG) SC SCH (09:18)
[2022-11-04] MEDS: CALCIUM/VITAMIN D 500 MG TAB PO SCH ×3 (09:18→20:06)
[2022-11-04] MEDS: QUEtiapine FUMARATE 25 MG TAB PO SCH (20:06)
[2022-11-04] MEDS: RAMELTEON 8 MG TAB (ROZEREM) PO PRN (20:06)
[2022-11-05 06:30] VITALS: BP 128/76
[2022-11-05] MEDS: CALCIUM/VITAMIN D 500 MG TAB PO SCH ×3 (09:52→19:58)
[2022-11-05] MEDS: FUROSEMIDE 40 MG TAB PO SCH (09:52)
[2022-11-05] MEDS: DIMETHICONE 2% OINTMENT(VANICREAM) 70GM TUBE TOP SCH ×2 (09:52→19:59)
[2022-11-05] MEDS: FLUTICASONE PROP 0.05% NASAL SPRAY 16 GM (FLONASE) NARES SCH ×2 (09:53→20:12)
[2022-11-05] MEDS: MIRALAX *UNIT DOSE* 17GM PACKET PO SCH (09:53)
[2022-11-05] MEDS: ENOXAPARIN 40MG/0.4ML SYRINGE (J1650 PER 10MG) SC SCH (09:53)
[2022-11-05] MEDS: METAMUCIL (PSYLLIUM) PACKET PO SCH (09:53)
[2022-11-05] MEDS: QUEtiapine FUMARATE 25 MG TAB PO SCH (19:58)
[2022-11-05] MEDS: RAMELTEON 8 MG TAB (ROZEREM) PO PRN (19:58)
[2022-11-05] MEDS: OLANZapine ORAL DISINTEGRATING TAB 5MG PO PRN (20:02)
[2022-11-05] MEDS: diphenhydrAMINE 50MG CAP PO PRN (21:23)
[2022-11-06 06:41] VITALS: BP 138/76
[2022-11-06] MEDS: FUROSEMIDE 40 MG TAB PO SCH (09:05)
[2022-11-06] MEDS: CALCIUM/VITAMIN D 500 MG TAB PO SCH ×3 (09:05→20:15)
[2022-11-06] MEDS: MIRALAX *UNIT DOSE* 17GM PACKET PO SCH (09:06)
[2022-11-06] MEDS: METAMUCIL (PSYLLIUM) PACKET PO SCH (09:06)
[2022-11-06] MEDS: ENOXAPARIN 40MG/0.4ML SYRINGE (J1650 PER 10MG) SC SCH (09:06)
[2022-11-06] MEDS: DIMETHICONE 2% OINTMENT(VANICREAM) 70GM TUBE TOP SCH ×3 (09:06→20:45)
[2022-11-06] MEDS: FLUTICASONE PROP 0.05% NASAL SPRAY 16 GM (FLONASE) NARES SCH ×3 (09:06→20:45)
[2022-11-06] MEDS: RAMELTEON 8 MG TAB (ROZEREM) PO PRN (20:15)
[2022-11-06] MEDS: QUEtiapine FUMARATE 25 MG TAB PO SCH (20:15)
[2022-11-06] MEDS: ACETAMINOPHEN TAB 650MG DOSE (2X325MG) PO PRN (20:15)
[2022-11-06] MEDS: diphenhydrAMINE 50MG CAP PO PRN (22:27)
[2022-11-07 09:15] VITALS: BP 136/78
[2022-11-07] MEDS: ENOXAPARIN 40MG/0.4ML SYRINGE (J1650 PER 10MG) SC SCH (10:34)
[2022-11-07] MEDS: CALCIUM/VITAMIN D 500 MG TAB PO SCH ×3 (10:34→20:09)
[2022-11-07] MEDS: FUROSEMIDE 40 MG TAB PO SCH (10:34)
[2022-11-07] MEDS: FLUTICASONE PROP 0.05% NASAL SPRAY 16 GM (FLONASE) NARES SCH ×2 (10:34→20:11)
[2022-11-07] MEDS: METAMUCIL (PSYLLIUM) PACKET PO SCH (10:34)
[2022-11-07] MEDS: DIMETHICONE 2% OINTMENT(VANICREAM) 70GM TUBE TOP SCH ×2 (10:35→20:09)
[2022-11-07] MEDS: MIRALAX *UNIT DOSE* 17GM PACKET PO SCH (10:35)
[2022-11-07] MEDS: OLANZapine ORAL DISINTEGRATING TAB 5MG PO PRN (20:09)
[2022-11-07] MEDS: RAMELTEON 8 MG TAB (ROZEREM) PO PRN (20:09)
[2022-11-07] MEDS: QUEtiapine FUMARATE 25 MG TAB PO SCH (20:09)
[2022-11-08 05:57] VITALS: BP 135/72
[2022-11-08] MEDS: METAMUCIL (PSYLLIUM) PACKET PO SCH (08:28)
[2022-11-08] MEDS: ENOXAPARIN 40MG/0.4ML SYRINGE (J1650 PER 10MG) SC SCH (08:28)
[2022-11-08] MEDS: FUROSEMIDE 40 MG TAB PO SCH (08:28)
[2022-11-08] MEDS: CALCIUM/VITAMIN D 500 MG TAB PO SCH ×3 (08:28→19:23)
[2022-11-08] MEDS: MIRALAX *UNIT DOSE* 17GM PACKET PO SCH (08:28)
[2022-11-08] MEDS: DIMETHICONE 2% OINTMENT(VANICREAM) 70GM TUBE TOP SCH ×2 (08:29→19:23)
[2022-11-08] MEDS: FLUTICASONE PROP 0.05% NASAL SPRAY 16 GM (FLONASE) NARES SCH ×2 (08:29→19:23)
[2022-11-08] MEDS: RAMELTEON 8 MG TAB (ROZEREM) PO PRN (19:23)
[2022-11-08] MEDS: QUEtiapine FUMARATE 25 MG TAB PO SCH (19:23)
[2022-11-08] MEDS: OLANZapine ORAL DISINTEGRATING TAB 5MG PO PRN (19:23)
[2022-11-08] MEDS: ACETAMINOPHEN TAB 650MG DOSE (2X325MG) PO PRN (19:24)
[2022-11-09 05:37] VITALS: BP 143/92
[2022-11-09] MEDS: FUROSEMIDE 40 MG TAB PO SCH (09:44)
[2022-11-09] MEDS: DIMETHICONE 2% OINTMENT(VANICREAM) 70GM TUBE TOP SCH ×2 (09:44→19:56)
[2022-11-09] MEDS: CALCIUM/VITAMIN D 500 MG TAB PO SCH ×3 (09:44→19:56)
[2022-11-09] MEDS: FLUTICASONE PROP 0.05% NASAL SPRAY 16 GM (FLONASE) NARES SCH ×2 (09:44→19:56)
[2022-11-09] MEDS: ENOXAPARIN 40MG/0.4ML SYRINGE (J1650 PER 10MG) SC SCH (09:45)
[2022-11-09] MEDS: METAMUCIL (PSYLLIUM) PACKET PO SCH (09:45)
[2022-11-09] MEDS: MIRALAX *UNIT DOSE* 17GM PACKET PO SCH (09:45)
[2022-11-09] MEDS: OLANZapine ORAL DISINTEGRATING TAB 5MG PO PRN ×3 (10:24→21:01)
[2022-11-09] MEDS: QUEtiapine FUMARATE 25 MG TAB PO SCH (19:55)
[2022-11-09] MEDS: RAMELTEON 8 MG TAB (ROZEREM) PO PRN (19:55)
[2022-11-10 06:00] VITALS: BP 146/85
[2022-11-10] MEDS: FUROSEMIDE 40 MG TAB PO SCH (09:42)
[2022-11-10] MEDS: FLUTICASONE PROP 0.05% NASAL SPRAY 16 GM (FLONASE) NARES SCH ×2 (09:42→22:01)
[2022-11-10] MEDS: CALCIUM/VITAMIN D 500 MG TAB PO SCH ×3 (09:42→22:01)
[2022-11-10] MEDS: METAMUCIL (PSYLLIUM) PACKET PO SCH (09:42)
[2022-11-10] MEDS: ENOXAPARIN 40MG/0.4ML SYRINGE (J1650 PER 10MG) SC SCH (09:43)
[2022-11-10] MEDS: MIRALAX *UNIT DOSE* 17GM PACKET PO SCH (09:43)
[2022-11-10] MEDS: DIMETHICONE 2% OINTMENT(VANICREAM) 70GM TUBE TOP SCH ×2 (09:43→22:02)
[2022-11-10] MEDS: QUEtiapine FUMARATE 25 MG TAB PO SCH (22:01)
[2022-11-10] MEDS: RAMELTEON 8 MG TAB (ROZEREM) PO PRN (22:01)
[2022-11-11] MEDS: MIRALAX *UNIT DOSE* 17GM PACKET PO SCH (09:58)
[2022-11-11] MEDS: METAMUCIL (PSYLLIUM) PACKET PO SCH (09:58)
[2022-11-11] MEDS: ENOXAPARIN 40MG/0.4ML SYRINGE (J1650 PER 10MG) SC SCH (09:59)
[2022-11-11] MEDS: DIMETHICONE 2% OINTMENT(VANICREAM) 70GM TUBE TOP SCH ×2 (09:59→19:50)
[2022-11-11] MEDS: FUROSEMIDE 40 MG TAB PO SCH (09:59)
[2022-11-11] MEDS: CALCIUM/VITAMIN D 500 MG TAB PO SCH ×3 (09:59→19:44)
[2022-11-11] MEDS: FLUTICASONE PROP 0.05% NASAL SPRAY 16 GM (FLONASE) NARES SCH ×2 (09:59→19:50)
[2022-11-11] MEDS: OLANZapine ORAL DISINTEGRATING TAB 5MG PO PRN ×2 (16:30→19:44)
[2022-11-11] MEDS: RAMELTEON 8 MG TAB (ROZEREM) PO PRN (19:44)
[2022-11-11] MEDS: QUEtiapine FUMARATE 25 MG TAB PO SCH (19:44)
[2022-11-12 04:44] VITALS: BP 115/55
[2022-11-12] MEDS: METAMUCIL (PSYLLIUM) PACKET PO SCH (08:07)
[2022-11-12] MEDS: MIRALAX *UNIT DOSE* 17GM PACKET PO SCH (08:07)
[2022-11-12] MEDS: CALCIUM/VITAMIN D 500 MG TAB PO SCH ×3 (08:07→19:13)
[2022-11-12] MEDS: FUROSEMIDE 40 MG TAB PO SCH (08:07)
[2022-11-12] MEDS: DIMETHICONE 2% OINTMENT(VANICREAM) 70GM TUBE TOP SCH ×2 (08:08→20:11)
[2022-11-12] MEDS: ENOXAPARIN 40MG/0.4ML SYRINGE (J1650 PER 10MG) SC SCH (08:08)
[2022-11-12] MEDS: FLUTICASONE PROP 0.05% NASAL SPRAY 16 GM (FLONASE) NARES SCH ×2 (08:08→20:11)
[2022-11-12 08:24] LABS: BLOOD UREA NITROGEN 21 MG/DL (9-23); CALCIUM LEVEL 9.5 MG/DL (8.3-10.6); CARBON DIOXIDE LEVEL 31 MMOL/L (20-31); CHLORIDE LEVEL 106 MMOL/L (98-107); CREATININE FOR GFR 0.82 MG/DL (0.55-1.30); GLOMERULAR FILTRATION RATE > 60.0 (>32); GLUCOSE, FASTING 132 MG/DL (74-106); SODIUM LEVEL 143 MMOL/L (136-145)
[2022-11-12] MEDS: RAMELTEON 8 MG TAB (ROZEREM) PO PRN (19:13)
[2022-11-12] MEDS: diphenhydrAMINE 50MG CAP PO PRN (19:13)
[2022-11-12] MEDS: QUEtiapine FUMARATE 25 MG TAB PO SCH (19:14)
[2022-11-13 04:49] VITALS: BP 144/81
[2022-11-13] MEDS: CALCIUM/VITAMIN D 500 MG TAB PO SCH ×3 (08:02→19:18)
[2022-11-13] MEDS: MIRALAX *UNIT DOSE* 17GM PACKET PO SCH (08:02)
[2022-11-13] MEDS: METAMUCIL (PSYLLIUM) PACKET PO SCH (08:02)
[2022-11-13] MEDS: FUROSEMIDE 40 MG TAB PO SCH (08:03)
[2022-11-13] MEDS: ENOXAPARIN 40MG/0.4ML SYRINGE (J1650 PER 10MG) SC SCH (08:03)
[2022-11-13] MEDS: DIMETHICONE 2% OINTMENT(VANICREAM) 70GM TUBE TOP SCH ×2 (08:03→19:24)
[2022-11-13] MEDS: FLUTICASONE PROP 0.05% NASAL SPRAY 16 GM (FLONASE) NARES SCH ×2 (08:03→19:24)
[2022-11-13] MEDS: diphenhydrAMINE 50MG CAP PO PRN ×2 (14:39→19:18)
[2022-11-13] MEDS: RAMELTEON 8 MG TAB (ROZEREM) PO PRN (19:18)
[2022-11-13] MEDS: QUEtiapine FUMARATE 25 MG TAB PO SCH (19:18)
[2022-11-14 06:00] VITALS: BP 116/68
[2022-11-14] MEDS: MIRALAX *UNIT DOSE* 17GM PACKET PO SCH (09:31)
[2022-11-14] MEDS: CALCIUM/VITAMIN D 500 MG TAB PO SCH ×3 (09:31→19:38)
[2022-11-14] MEDS: ENOXAPARIN 40MG/0.4ML SYRINGE (J1650 PER 10MG) SC SCH (09:31)
[2022-11-14] MEDS: METAMUCIL (PSYLLIUM) PACKET PO SCH (09:31)
[2022-11-14] MEDS: FLUTICASONE PROP 0.05% NASAL SPRAY 16 GM (FLONASE) NARES SCH ×3 (09:32→20:10)
[2022-11-14] MEDS: DIMETHICONE 2% OINTMENT(VANICREAM) 70GM TUBE TOP SCH ×2 (09:32→19:38)
[2022-11-14] MEDS: FUROSEMIDE 40 MG TAB PO SCH (09:32)
[2022-11-14] MEDS: RAMELTEON 8 MG TAB (ROZEREM) PO PRN (19:38)
[2022-11-14] MEDS: QUEtiapine FUMARATE 25 MG TAB PO SCH (19:38)
[2022-11-14] MEDS: OLANZapine ORAL DISINTEGRATING TAB 5MG PO PRN (19:38)
[2022-11-15] MEDS: DIMETHICONE 2% OINTMENT(VANICREAM) 70GM TUBE TOP SCH ×2 (09:00→20:11)
[2022-11-15] MEDS: MIRALAX *UNIT DOSE* 17GM PACKET PO SCH (09:00)
[2022-11-15] MEDS: CALCIUM/VITAMIN D 500 MG TAB PO SCH ×3 (09:00→20:10)
[2022-11-15] MEDS: METAMUCIL (PSYLLIUM) PACKET PO SCH (09:00)
[2022-11-15] MEDS: ENOXAPARIN 40MG/0.4ML SYRINGE (J1650 PER 10MG) SC SCH (09:00)
[2022-11-15] MEDS: FLUTICASONE PROP 0.05% NASAL SPRAY 16 GM (FLONASE) NARES SCH ×2 (09:00→20:10)
[2022-11-15] MEDS: FUROSEMIDE 40 MG TAB PO SCH (13:59)
[2022-11-15] MEDS: RAMELTEON 8 MG TAB (ROZEREM) PO PRN (20:10)
[2022-11-15] MEDS: QUEtiapine FUMARATE 25 MG TAB PO SCH (20:10)
[2022-11-15] MEDS: OLANZapine ORAL DISINTEGRATING TAB 5MG PO PRN (20:11)
[2022-11-16] MEDS: METAMUCIL (PSYLLIUM) PACKET PO SCH (08:10)
[2022-11-16] MEDS: DIMETHICONE 2% OINTMENT(VANICREAM) 70GM TUBE TOP SCH ×2 (08:10→20:38)
[2022-11-16] MEDS: FLUTICASONE PROP 0.05% NASAL SPRAY 16 GM (FLONASE) NARES SCH ×2 (08:10→20:37)
[2022-11-16] MEDS: MIRALAX *UNIT DOSE* 17GM PACKET PO SCH (08:10)
[2022-11-16] MEDS: CALCIUM/VITAMIN D 500 MG TAB PO SCH ×3 (08:10→20:37)
[2022-11-16] MEDS: ENOXAPARIN 40MG/0.4ML SYRINGE (J1650 PER 10MG) SC SCH (08:10)
[2022-11-16] MEDS: FUROSEMIDE 40 MG TAB PO SCH (08:13)
[2022-11-16 08:14] VITALS: BP 120/64
[2022-11-16] MEDS: OLANZapine ORAL DISINTEGRATING TAB 5MG PO PRN (20:37)
[2022-11-16] MEDS: QUEtiapine FUMARATE 25 MG TAB PO SCH (20:37)
[2022-11-16] MEDS: RAMELTEON 8 MG TAB (ROZEREM) PO PRN (20:37)
[2022-11-17 07:18] VITALS: BP 146/91
[2022-11-17] MEDS: MIRALAX *UNIT DOSE* 17GM PACKET PO SCH (08:22)
[2022-11-17] MEDS: METAMUCIL (PSYLLIUM) PACKET PO SCH (08:22)
[2022-11-17] MEDS: ENOXAPARIN 40MG/0.4ML SYRINGE (J1650 PER 10MG) SC SCH (08:22)
[2022-11-17] MEDS: CALCIUM/VITAMIN D 500 MG TAB PO SCH ×3 (08:22→22:18)
[2022-11-17] MEDS: FLUTICASONE PROP 0.05% NASAL SPRAY 16 GM (FLONASE) NARES SCH ×2 (08:23→22:18)
[2022-11-17] MEDS: FUROSEMIDE 40 MG TAB PO SCH (08:23)
[2022-11-17] MEDS: DIMETHICONE 2% OINTMENT(VANICREAM) 70GM TUBE TOP SCH ×2 (08:23→22:18)
[2022-11-17] MEDS: QUEtiapine FUMARATE 25 MG TAB PO SCH (22:18)
[2022-11-17] MEDS: RAMELTEON 8 MG TAB (ROZEREM) PO PRN (22:19)
[2022-11-18 05:14] VITALS: BP 138/78
[2022-11-18] MEDS: ENOXAPARIN 40MG/0.4ML SYRINGE (J1650 PER 10MG) SC SCH (09:00)
[2022-11-18] MEDS: CALCIUM/VITAMIN D 500 MG TAB PO SCH ×3 (09:44→20:44)
[2022-11-18] MEDS: METAMUCIL (PSYLLIUM) PACKET PO SCH (09:44)
[2022-11-18] MEDS: FUROSEMIDE 40 MG TAB PO SCH (09:44)
[2022-11-18] MEDS: FLUTICASONE PROP 0.05% NASAL SPRAY 16 GM (FLONASE) NARES SCH ×3 (09:45→20:53)
[2022-11-18] MEDS: MIRALAX *UNIT DOSE* 17GM PACKET PO SCH (09:45)
[2022-11-18] MEDS: DIMETHICONE 2% OINTMENT(VANICREAM) 70GM TUBE TOP SCH ×3 (09:45→20:53)
[2022-11-18] MEDS: QUEtiapine FUMARATE 25 MG TAB PO SCH (20:45)
[2022-11-18] MEDS: RAMELTEON 8 MG TAB (ROZEREM) PO PRN (20:45)
[2022-11-19 06:00] VITALS: BP 127/82
[2022-11-19 08:00] VITALS: BP 130/74
[2022-11-19] MEDS: METAMUCIL (PSYLLIUM) PACKET PO SCH (08:19)
[2022-11-19] MEDS: CALCIUM/VITAMIN D 500 MG TAB PO SCH ×3 (08:19→20:20)
[2022-11-19] MEDS: MIRALAX *UNIT DOSE* 17GM PACKET PO SCH (08:19)
[2022-11-19] MEDS: FUROSEMIDE 40 MG TAB PO SCH (08:20)
[2022-11-19] MEDS: FLUTICASONE PROP 0.05% NASAL SPRAY 16 GM (FLONASE) NARES SCH ×2 (08:21→20:20)
[2022-11-19] MEDS: ENOXAPARIN 40MG/0.4ML SYRINGE (J1650 PER 10MG) SC SCH (08:21)
[2022-11-19] MEDS: DIMETHICONE 2% OINTMENT(VANICREAM) 70GM TUBE TOP SCH ×2 (08:22→20:20)
[2022-11-19] MEDS: RAMELTEON 8 MG TAB (ROZEREM) PO PRN (20:19)
[2022-11-19] MEDS: QUEtiapine FUMARATE 12.5 MG HALF-TAB PO SCH (20:20)
[2022-11-20] MEDS: diphenhydrAMINE 50MG CAP PO PRN ×2 (00:38→21:52)
[2022-11-20 06:00] VITALS: BP 121/80
[2022-11-20] MEDS: FUROSEMIDE 40 MG TAB PO SCH (08:57)
[2022-11-20] MEDS: METAMUCIL (PSYLLIUM) PACKET PO SCH (08:57)
[2022-11-20] MEDS: ENOXAPARIN 40MG/0.4ML SYRINGE (J1650 PER 10MG) SC SCH (08:57)
[2022-11-20] MEDS: MIRALAX *UNIT DOSE* 17GM PACKET PO SCH (08:57)
[2022-11-20] MEDS: CALCIUM/VITAMIN D 500 MG TAB PO SCH ×3 (08:57→21:52)
[2022-11-20] MEDS: DIMETHICONE 2% OINTMENT(VANICREAM) 70GM TUBE TOP SCH ×2 (08:58→21:52)
[2022-11-20] MEDS: FLUTICASONE PROP 0.05% NASAL SPRAY 16 GM (FLONASE) NARES SCH ×2 (08:59→21:52)
[2022-11-20] MEDS: QUEtiapine FUMARATE 12.5 MG HALF-TAB PO SCH (21:52)
[2022-11-20] MEDS: RAMELTEON 8 MG TAB (ROZEREM) PO PRN (21:52)
[2022-11-20] MEDS: ACETAMINOPHEN TAB 650MG DOSE (2X325MG) PO PRN (21:52)
[2022-11-21 06:00] VITALS: BP_SYST 129; BP_SYST 134; BP_DIAS 73; BP_DIAS 77
[2022-11-21] MEDS: DIMETHICONE 2% OINTMENT(VANICREAM) 70GM TUBE TOP SCH ×2 (08:14→21:37)
[2022-11-21] MEDS: CALCIUM/VITAMIN D 500 MG TAB PO SCH ×3 (08:14→21:37)
[2022-11-21] MEDS: FLUTICASONE PROP 0.05% NASAL SPRAY 16 GM (FLONASE) NARES SCH ×2 (08:14→21:37)
[2022-11-21] MEDS: MIRALAX *UNIT DOSE* 17GM PACKET PO SCH (08:14)
[2022-11-21] MEDS: METAMUCIL (PSYLLIUM) PACKET PO SCH (08:14)
[2022-11-21] MEDS: ENOXAPARIN 40MG/0.4ML SYRINGE (J1650 PER 10MG) SC SCH (08:15)
[2022-11-21] MEDS: FUROSEMIDE 40 MG TAB PO SCH (08:15)
[2022-11-21] MEDS: RAMELTEON 8 MG TAB (ROZEREM) PO PRN (21:37)
[2022-11-21] MEDS: QUEtiapine FUMARATE 12.5 MG HALF-TAB PO SCH (21:37)
[2022-11-22] MEDS: METAMUCIL (PSYLLIUM) PACKET PO SCH (09:15)
[2022-11-22] MEDS: MIRALAX *UNIT DOSE* 17GM PACKET PO SCH (09:15)
[2022-11-22] MEDS: ENOXAPARIN 40MG/0.4ML SYRINGE (J1650 PER 10MG) SC SCH (09:16)
[2022-11-22] MEDS: CALCIUM/VITAMIN D 500 MG TAB PO SCH ×3 (09:16→20:29)
[2022-11-22] MEDS: DIMETHICONE 2% OINTMENT(VANICREAM) 70GM TUBE TOP SCH ×2 (09:16→20:29)
[2022-11-22] MEDS: FLUTICASONE PROP 0.05% NASAL SPRAY 16 GM (FLONASE) NARES SCH ×2 (09:16→20:29)
[2022-11-22] MEDS: FUROSEMIDE 40 MG TAB PO SCH (09:16)
[2022-11-22] MEDS: OLANZapine ORAL DISINTEGRATING TAB 5MG PO PRN (20:29)
[2022-11-22] MEDS: diphenhydrAMINE 50MG CAP PO PRN (20:29)
[2022-11-22] MEDS: RAMELTEON 8 MG TAB (ROZEREM) PO PRN (20:29)
[2022-11-22] MEDS: QUEtiapine FUMARATE 12.5 MG HALF-TAB PO SCH (20:29)
[2022-11-23] MEDS: METAMUCIL (PSYLLIUM) PACKET PO SCH (09:53)
[2022-11-23] MEDS: MIRALAX *UNIT DOSE* 17GM PACKET PO SCH (09:53)
[2022-11-23] MEDS: FUROSEMIDE 40 MG TAB PO SCH (09:53)
[2022-11-23] MEDS: ENOXAPARIN 40MG/0.4ML SYRINGE (J1650 PER 10MG) SC SCH (09:53)
[2022-11-23] MEDS: DIMETHICONE 2% OINTMENT(VANICREAM) 70GM TUBE TOP SCH ×2 (09:53→20:00)
[2022-11-23] MEDS: FLUTICASONE PROP 0.05% NASAL SPRAY 16 GM (FLONASE) NARES SCH ×2 (09:53→20:00)
[2022-11-23] MEDS: CALCIUM/VITAMIN D 500 MG TAB PO SCH ×3 (09:56→20:00)
[2022-11-23] MEDS: OLANZapine ORAL DISINTEGRATING TAB 5MG PO PRN (20:00)
[2022-11-23] MEDS: QUEtiapine FUMARATE 12.5 MG HALF-TAB PO SCH (20:00)
[2022-11-23] MEDS: diphenhydrAMINE 50MG CAP PO PRN (20:00)
[2022-11-23] MEDS: RAMELTEON 8 MG TAB (ROZEREM) PO PRN (20:00)
[2022-11-24 06:00] VITALS: BP 144/86
[2022-11-24] MEDS: FLUTICASONE PROP 0.05% NASAL SPRAY 16 GM (FLONASE) NARES SCH ×2 (09:00→20:24)
[2022-11-24] MEDS: ENOXAPARIN 40MG/0.4ML SYRINGE (J1650 PER 10MG) SC SCH ×2 (09:00→09:12)
[2022-11-24] MEDS: CALCIUM/VITAMIN D 500 MG TAB PO SCH ×3 (09:12→20:22)
[2022-11-24] MEDS: METAMUCIL (PSYLLIUM) PACKET PO SCH (09:12)
[2022-11-24] MEDS: FUROSEMIDE 40 MG TAB PO SCH (09:12)
[2022-11-24] MEDS: MIRALAX *UNIT DOSE* 17GM PACKET PO SCH (09:12)
[2022-11-24] MEDS: DIMETHICONE 2% OINTMENT(VANICREAM) 70GM TUBE TOP SCH ×2 (09:13→20:23)
[2022-11-24] MEDS: RAMELTEON 8 MG TAB (ROZEREM) PO PRN (20:23)
[2022-11-24] MEDS: QUEtiapine FUMARATE 12.5 MG HALF-TAB PO SCH (20:23)
[2022-11-24] MEDS: ACETAMINOPHEN TAB 650MG DOSE (2X325MG) PO PRN (20:23)
[2022-11-25 06:00] VITALS: BP 121/68
[2022-11-25] MEDS: CALCIUM/VITAMIN D 500 MG TAB PO SCH ×3 (11:09→20:30)
[2022-11-25] MEDS: ENOXAPARIN 40MG/0.4ML SYRINGE (J1650 PER 10MG) SC SCH (11:09)
[2022-11-25] MEDS: METAMUCIL (PSYLLIUM) PACKET PO SCH (11:09)
[2022-11-25] MEDS: MIRALAX *UNIT DOSE* 17GM PACKET PO SCH (11:09)
[2022-11-25] MEDS: FLUTICASONE PROP 0.05% NASAL SPRAY 16 GM (FLONASE) NARES SCH ×2 (11:10→20:31)
[2022-11-25] MEDS: DIMETHICONE 2% OINTMENT(VANICREAM) 70GM TUBE TOP SCH ×2 (11:10→20:31)
[2022-11-25] MEDS: FUROSEMIDE 40 MG TAB PO SCH (11:10)
[2022-11-25] MEDS: RAMELTEON 8 MG TAB (ROZEREM) PO PRN (20:30)
[2022-11-25] MEDS: QUEtiapine FUMARATE 12.5 MG HALF-TAB PO SCH (20:30)
[2022-11-26 06:00] VITALS: BP 145/86
[2022-11-26] MEDS: METAMUCIL (PSYLLIUM) PACKET PO SCH (08:35)
[2022-11-26] MEDS: ENOXAPARIN 40MG/0.4ML SYRINGE (J1650 PER 10MG) SC SCH (08:35)
[2022-11-26] MEDS: CALCIUM/VITAMIN D 500 MG TAB PO SCH ×3 (08:35→22:31)
[2022-11-26] MEDS: FUROSEMIDE 40 MG TAB PO SCH (08:35)
[2022-11-26] MEDS: DIMETHICONE 2% OINTMENT(VANICREAM) 70GM TUBE TOP SCH ×2 (08:35→22:31)
[2022-11-26] MEDS: FLUTICASONE PROP 0.05% NASAL SPRAY 16 GM (FLONASE) NARES SCH ×2 (08:35→22:31)
[2022-11-26] MEDS: MIRALAX *UNIT DOSE* 17GM PACKET PO SCH (08:35)
[2022-11-26] MEDS: RAMELTEON 8 MG TAB (ROZEREM) PO PRN (22:31)
[2022-11-26] MEDS: APIXABAN 5 MG TAB (ELIQUIS) PO SCH (22:31)
[2022-11-26] MEDS: QUEtiapine FUMARATE 12.5 MG HALF-TAB PO SCH (22:31)
[2022-11-27 07:50] VITALS: BP 177/84
[2022-11-27] MEDS: APIXABAN 5 MG TAB (ELIQUIS) PO SCH ×2 (08:29→19:45)
[2022-11-27] MEDS: FUROSEMIDE 40 MG TAB PO SCH (08:29)
[2022-11-27] MEDS: METAMUCIL (PSYLLIUM) PACKET PO SCH (08:29)
[2022-11-27] MEDS: CALCIUM/VITAMIN D 500 MG TAB PO SCH ×3 (08:29→19:45)
[2022-11-27] MEDS: MIRALAX *UNIT DOSE* 17GM PACKET PO SCH (08:29)
[2022-11-27] MEDS: DIMETHICONE 2% OINTMENT(VANICREAM) 70GM TUBE TOP SCH ×2 (08:29→19:52)
[2022-11-27] MEDS: FLUTICASONE PROP 0.05% NASAL SPRAY 16 GM (FLONASE) NARES SCH ×2 (08:30→19:47)
[2022-11-27 12:22] VITALS: BP 129/71
[2022-11-27] MEDS: QUEtiapine FUMARATE 12.5 MG HALF-TAB PO SCH (19:45)
[2022-11-27] MEDS: RAMELTEON 8 MG TAB (ROZEREM) PO PRN (19:45)
[2022-11-27] MEDS: diphenhydrAMINE 50MG CAP PO PRN (19:45)
[2022-11-27] MEDS: ACETAMINOPHEN TAB 650MG DOSE (2X325MG) PO PRN (19:51)
[2022-11-28 05:59] VITALS: BP 138/69
[2022-11-28] MEDS: MIRALAX *UNIT DOSE* 17GM PACKET PO SCH (09:00)
[2022-11-28] MEDS: METAMUCIL (PSYLLIUM) PACKET PO SCH (09:00)
[2022-11-28] MEDS: APIXABAN 5 MG TAB (ELIQUIS) PO SCH ×2 (09:45→21:06)
[2022-11-28] MEDS: CALCIUM/VITAMIN D 500 MG TAB PO SCH ×3 (09:45→21:06)
[2022-11-28] MEDS: DIMETHICONE 2% OINTMENT(VANICREAM) 70GM TUBE TOP SCH ×2 (09:45→21:13)
[2022-11-28] MEDS: FUROSEMIDE 40 MG TAB PO SCH (09:45)
[2022-11-28] MEDS: FLUTICASONE PROP 0.05% NASAL SPRAY 16 GM (FLONASE) NARES SCH ×2 (09:46→21:00)
[2022-11-28] MEDS: QUEtiapine FUMARATE 12.5 MG HALF-TAB PO SCH (21:06)
[2022-11-29 05:50] VITALS: BP 150/78
[2022-11-29] MEDS: MIRALAX *UNIT DOSE* 17GM PACKET PO SCH (08:46)
[2022-11-29] MEDS: METAMUCIL (PSYLLIUM) PACKET PO SCH (08:46)
[2022-11-29] MEDS: APIXABAN 5 MG TAB (ELIQUIS) PO SCH ×2 (08:46→20:01)
[2022-11-29] MEDS: CALCIUM/VITAMIN D 500 MG TAB PO SCH ×3 (08:46→20:01)
[2022-11-29] MEDS: DIMETHICONE 2% OINTMENT(VANICREAM) 70GM TUBE TOP SCH ×2 (08:47→20:02)
[2022-11-29] MEDS: FLUTICASONE PROP 0.05% NASAL SPRAY 16 GM (FLONASE) NARES SCH ×3 (08:47→20:11)
[2022-11-29] MEDS: FUROSEMIDE 40 MG TAB PO SCH (08:48)
[2022-11-29] MEDS: QUEtiapine FUMARATE 12.5 MG HALF-TAB PO SCH (20:01)
[2022-11-29] MEDS: RAMELTEON 8 MG TAB (ROZEREM) PO PRN (20:01)
[2022-11-29] MEDS: ACETAMINOPHEN TAB 650MG DOSE (2X325MG) PO PRN (20:01)
[2022-11-29] MEDS: OLANZapine ORAL DISINTEGRATING TAB 5MG PO PRN (20:01)
[2022-11-30 06:00] VITALS: BP 140/88
[2022-11-30] MEDS: FLUTICASONE PROP 0.05% NASAL SPRAY 16 GM (FLONASE) NARES SCH ×2 (09:00→20:52)
[2022-11-30 09:09] VITALS: BP 122/76
[2022-11-30] MEDS: METAMUCIL (PSYLLIUM) PACKET PO SCH (09:11)
[2022-11-30] MEDS: CALCIUM/VITAMIN D 500 MG TAB PO SCH ×3 (09:11→20:52)
[2022-11-30] MEDS: MIRALAX *UNIT DOSE* 17GM PACKET PO SCH (09:11)
[2022-11-30] MEDS: APIXABAN 5 MG TAB (ELIQUIS) PO SCH ×2 (09:11→20:52)
[2022-11-30] MEDS: FUROSEMIDE 40 MG TAB PO SCH (09:12)
[2022-11-30] MEDS: DIMETHICONE 2% OINTMENT(VANICREAM) 70GM TUBE TOP SCH ×2 (09:12→20:52)
[2022-11-30] MEDS: RAMELTEON 8 MG TAB (ROZEREM) PO PRN (20:52)
[2022-11-30] MEDS: QUEtiapine FUMARATE 12.5 MG HALF-TAB PO SCH (20:52)
[2022-12-01 06:00] VITALS: BP 149/79
[2022-12-01] MEDS: FUROSEMIDE 40 MG TAB PO SCH (08:35)
[2022-12-01] MEDS: MIRALAX *UNIT DOSE* 17GM PACKET PO SCH (08:35)
[2022-12-01] MEDS: CALCIUM/VITAMIN D 500 MG TAB PO SCH ×3 (08:35→19:47)
[2022-12-01] MEDS: FLUTICASONE PROP 0.05% NASAL SPRAY 16 GM (FLONASE) NARES SCH ×2 (08:35→19:47)
[2022-12-01] MEDS: APIXABAN 5 MG TAB (ELIQUIS) PO SCH ×2 (08:35→19:47)
[2022-12-01] MEDS: METAMUCIL (PSYLLIUM) PACKET PO SCH (08:35)
[2022-12-01] MEDS: DIMETHICONE 2% OINTMENT(VANICREAM) 70GM TUBE TOP SCH ×2 (08:36→19:47)
[2022-12-01] MEDS: RAMELTEON 8 MG TAB (ROZEREM) PO PRN (19:47)
[2022-12-01] MEDS: diphenhydrAMINE 50MG CAP PO PRN (19:47)
[2022-12-01] MEDS: QUEtiapine FUMARATE 12.5 MG HALF-TAB PO SCH (19:47)
[2022-12-02 06:00] VITALS: BP 118/72
[2022-12-02] MEDS: CALCIUM/VITAMIN D 500 MG TAB PO SCH ×3 (08:31→19:56)
[2022-12-02] MEDS: FLUTICASONE PROP 0.05% NASAL SPRAY 16 GM (FLONASE) NARES SCH ×2 (08:31→19:58)
[2022-12-02] MEDS: DIMETHICONE 2% OINTMENT(VANICREAM) 70GM TUBE TOP SCH ×2 (08:31→19:57)
[2022-12-02] MEDS: METAMUCIL (PSYLLIUM) PACKET PO SCH (08:31)
[2022-12-02] MEDS: MIRALAX *UNIT DOSE* 17GM PACKET PO SCH (08:31)
[2022-12-02] MEDS: APIXABAN 5 MG TAB (ELIQUIS) PO SCH ×2 (08:32→19:56)
[2022-12-02 08:35] VITALS: BP 121/71
[2022-12-02] MEDS: FUROSEMIDE 40 MG TAB PO SCH (08:35)
[2022-12-02] MEDS: QUEtiapine FUMARATE 12.5 MG HALF-TAB PO SCH (19:55)
[2022-12-02] MEDS: ACETAMINOPHEN TAB 650MG DOSE (2X325MG) PO PRN (19:56)
[2022-12-02] MEDS: RAMELTEON 8 MG TAB (ROZEREM) PO PRN (19:56)
[2022-12-03 07:28] VITALS: BP 125/65
[2022-12-03] MEDS: APIXABAN 5 MG TAB (ELIQUIS) PO SCH (08:14)
[2022-12-03] MEDS: FUROSEMIDE 40 MG TAB PO SCH (08:15)
[2022-12-03] MEDS: CALCIUM/VITAMIN D 500 MG TAB PO SCH ×3 (08:15→20:35)
[2022-12-03] MEDS: MIRALAX *UNIT DOSE* 17GM PACKET PO SCH (08:15)
[2022-12-03] MEDS: METAMUCIL (PSYLLIUM) PACKET PO SCH (08:15)
[2022-12-03] MEDS: FLUTICASONE PROP 0.05% NASAL SPRAY 16 GM (FLONASE) NARES SCH ×2 (08:16→20:35)
[2022-12-03] MEDS: DIMETHICONE 2% OINTMENT(VANICREAM) 70GM TUBE TOP SCH ×2 (08:16→20:35)
[2022-12-03] MEDS: APIXABAN 2.5 MG TAB (ELIQUIS) PO SCH (20:35)
[2022-12-03] MEDS: RAMELTEON 8 MG TAB (ROZEREM) PO PRN (20:35)
[2022-12-03] MEDS: QUEtiapine FUMARATE 12.5 MG HALF-TAB PO SCH (20:35)
[2022-12-04 05:09] VITALS: BP 122/68
[2022-12-04] MEDS: CALCIUM/VITAMIN D 500 MG TAB PO SCH ×3 (09:00→20:48)
[2022-12-04] MEDS: APIXABAN 2.5 MG TAB (ELIQUIS) PO SCH ×2 (09:23→20:48)
[2022-12-04] MEDS: DIMETHICONE 2% OINTMENT(VANICREAM) 70GM TUBE TOP SCH ×2 (09:24→20:50)
[2022-12-04] MEDS: FUROSEMIDE 40 MG TAB PO SCH (09:24)
[2022-12-04] MEDS: FLUTICASONE PROP 0.05% NASAL SPRAY 16 GM (FLONASE) NARES SCH ×2 (09:24→20:50)
[2022-12-04] MEDS: METAMUCIL (PSYLLIUM) PACKET PO SCH (09:24)
[2022-12-04] MEDS: MIRALAX *UNIT DOSE* 17GM PACKET PO SCH (09:24)
[2022-12-04] MEDS: ACETAMINOPHEN TAB 650MG DOSE (2X325MG) PO PRN (20:48)
[2022-12-04] MEDS: RAMELTEON 8 MG TAB (ROZEREM) PO PRN (20:48)
[2022-12-04] MEDS: QUEtiapine FUMARATE 12.5 MG HALF-TAB PO SCH (20:48)
[2022-12-05 06:00] VITALS: BP 146/80
[2022-12-05] MEDS: MIRALAX *UNIT DOSE* 17GM PACKET PO SCH (09:56)
[2022-12-05] MEDS: FUROSEMIDE 40 MG TAB PO SCH (09:56)
[2022-12-05] MEDS: APIXABAN 2.5 MG TAB (ELIQUIS) PO SCH ×2 (09:56→20:34)
[2022-12-05] MEDS: FLUTICASONE PROP 0.05% NASAL SPRAY 16 GM (FLONASE) NARES SCH ×2 (09:56→20:35)
[2022-12-05] MEDS: DIMETHICONE 2% OINTMENT(VANICREAM) 70GM TUBE TOP SCH ×2 (09:56→20:35)
[2022-12-05] MEDS: CALCIUM/VITAMIN D 500 MG TAB PO SCH ×3 (09:56→20:34)
[2022-12-05] MEDS: METAMUCIL (PSYLLIUM) PACKET PO SCH (09:57)
[2022-12-05] MEDS: diphenhydrAMINE 50MG CAP PO PRN (20:34)
[2022-12-05] MEDS: RAMELTEON 8 MG TAB (ROZEREM) PO PRN (20:34)
[2022-12-05] MEDS: QUEtiapine FUMARATE 12.5 MG HALF-TAB PO SCH (20:34)
[2022-12-06] MEDS: MIRALAX *UNIT DOSE* 17GM PACKET PO SCH (08:52)
[2022-12-06] MEDS: METAMUCIL (PSYLLIUM) PACKET PO SCH (08:52)
[2022-12-06] MEDS: FUROSEMIDE 40 MG TAB PO SCH (08:53)
[2022-12-06] MEDS: APIXABAN 2.5 MG TAB (ELIQUIS) PO SCH ×2 (08:53→19:46)
[2022-12-06] MEDS: FLUTICASONE PROP 0.05% NASAL SPRAY 16 GM (FLONASE) NARES SCH ×2 (08:53→19:46)
[2022-12-06] MEDS: DIMETHICONE 2% OINTMENT(VANICREAM) 70GM TUBE TOP SCH ×2 (08:53→19:46)
[2022-12-06] MEDS: CALCIUM/VITAMIN D 500 MG TAB PO SCH ×3 (08:53→19:46)
[2022-12-06] MEDS: RAMELTEON 8 MG TAB (ROZEREM) PO PRN (19:45)
[2022-12-06] MEDS: diphenhydrAMINE 50MG CAP PO PRN (19:46)
[2022-12-06] MEDS: QUEtiapine FUMARATE 12.5 MG HALF-TAB PO SCH (19:46)
[2022-12-07 06:26] VITALS: BP 138/83
[2022-12-07] MEDS: METAMUCIL (PSYLLIUM) PACKET PO SCH (08:27)
[2022-12-07] MEDS: FUROSEMIDE 40 MG TAB PO SCH (08:27)
[2022-12-07] MEDS: APIXABAN 2.5 MG TAB (ELIQUIS) PO SCH ×2 (08:27→21:20)
[2022-12-07] MEDS: MIRALAX *UNIT DOSE* 17GM PACKET PO SCH (08:27)
[2022-12-07] MEDS: CALCIUM/VITAMIN D 500 MG TAB PO SCH ×3 (08:27→21:20)
[2022-12-07] MEDS: FLUTICASONE PROP 0.05% NASAL SPRAY 16 GM (FLONASE) NARES SCH ×2 (08:29→21:00)
[2022-12-07] MEDS: DIMETHICONE 2% OINTMENT(VANICREAM) 70GM TUBE TOP SCH ×2 (08:29→21:00)
[2022-12-07] MEDS: QUEtiapine FUMARATE 12.5 MG HALF-TAB PO SCH (21:20)
[2022-12-07] MEDS: RAMELTEON 8 MG TAB (ROZEREM) PO PRN (21:20)
[2022-12-08 06:00] VITALS: BP 144/88
[2022-12-08] MEDS: FLUTICASONE PROP 0.05% NASAL SPRAY 16 GM (FLONASE) NARES SCH ×2 (08:19→20:23)
[2022-12-08] MEDS: MIRALAX *UNIT DOSE* 17GM PACKET PO SCH (08:19)
[2022-12-08] MEDS: METAMUCIL (PSYLLIUM) PACKET PO SCH (08:19)
[2022-12-08] MEDS: FUROSEMIDE 40 MG TAB PO SCH (08:20)
[2022-12-08] MEDS: CALCIUM/VITAMIN D 500 MG TAB PO SCH ×3 (08:20→20:24)
[2022-12-08] MEDS: DIMETHICONE 2% OINTMENT(VANICREAM) 70GM TUBE TOP SCH ×2 (08:20→20:24)
[2022-12-08] MEDS: APIXABAN 2.5 MG TAB (ELIQUIS) PO SCH ×2 (08:20→20:24)
[2022-12-08] MEDS: RAMELTEON 8 MG TAB (ROZEREM) PO PRN (20:24)
[2022-12-08] MEDS: QUEtiapine FUMARATE 12.5 MG HALF-TAB PO SCH (20:24)
[2022-12-09 07:04] VITALS: BP 138/92
[2022-12-09] MEDS: FUROSEMIDE 40 MG TAB PO SCH (08:02)
[2022-12-09] MEDS: DIMETHICONE 2% OINTMENT(VANICREAM) 70GM TUBE TOP SCH ×2 (08:02→20:04)
[2022-12-09] MEDS: METAMUCIL (PSYLLIUM) PACKET PO SCH (08:02)
[2022-12-09] MEDS: CALCIUM/VITAMIN D 500 MG TAB PO SCH ×3 (08:02→20:00)
[2022-12-09] MEDS: APIXABAN 2.5 MG TAB (ELIQUIS) PO SCH ×2 (08:02→20:00)
[2022-12-09] MEDS: MIRALAX *UNIT DOSE* 17GM PACKET PO SCH (08:02)
[2022-12-09] MEDS: FLUTICASONE PROP 0.05% NASAL SPRAY 16 GM (FLONASE) NARES SCH ×2 (08:05→21:00)
[2022-12-09] MEDS: diphenhydrAMINE 50MG CAP PO PRN (20:00)
[2022-12-09] MEDS: RAMELTEON 8 MG TAB (ROZEREM) PO PRN (20:00)
[2022-12-09] MEDS: QUEtiapine FUMARATE 12.5 MG HALF-TAB PO SCH (20:00)
[2022-12-10 06:00] VITALS: BP 142/66
[2022-12-10] MEDS: APIXABAN 2.5 MG TAB (ELIQUIS) PO SCH ×2 (09:18→20:00)
[2022-12-10] MEDS: FUROSEMIDE 40 MG TAB PO SCH (09:18)
[2022-12-10] MEDS: CALCIUM/VITAMIN D 500 MG TAB PO SCH ×3 (09:18→20:00)
[2022-12-10] MEDS: METAMUCIL (PSYLLIUM) PACKET PO SCH (09:18)
[2022-12-10] MEDS: MIRALAX *UNIT DOSE* 17GM PACKET PO SCH (09:18)
[2022-12-10] MEDS: FLUTICASONE PROP 0.05% NASAL SPRAY 16 GM (FLONASE) NARES SCH ×2 (09:19→20:00)
[2022-12-10] MEDS: DIMETHICONE 2% OINTMENT(VANICREAM) 70GM TUBE TOP SCH ×2 (09:19→20:00)
[2022-12-10] MEDS: OLANZapine ORAL DISINTEGRATING TAB 5MG PO PRN (14:07)
[2022-12-10] MEDS: diphenhydrAMINE 50MG CAP PO PRN (19:59)
[2022-12-10] MEDS: QUEtiapine FUMARATE 12.5 MG HALF-TAB PO SCH (20:00)
[2022-12-10] MEDS: RAMELTEON 8 MG TAB (ROZEREM) PO PRN (20:00)
[2022-12-11 05:59] VITALS: BP 137/87
[2022-12-11] MEDS: MIRALAX *UNIT DOSE* 17GM PACKET PO SCH (09:19)
[2022-12-11] MEDS: FUROSEMIDE 40 MG TAB PO SCH (09:19)
[2022-12-11] MEDS: CALCIUM/VITAMIN D 500 MG TAB PO SCH ×3 (09:20→19:53)
[2022-12-11] MEDS: DIMETHICONE 2% OINTMENT(VANICREAM) 70GM TUBE TOP SCH ×2 (09:20→19:54)
[2022-12-11] MEDS: FLUTICASONE PROP 0.05% NASAL SPRAY 16 GM (FLONASE) NARES SCH ×2 (09:20→19:54)
[2022-12-11] MEDS: METAMUCIL (PSYLLIUM) PACKET PO SCH (09:20)
[2022-12-11] MEDS: APIXABAN 2.5 MG TAB (ELIQUIS) PO SCH ×2 (09:20→19:54)
[2022-12-11] MEDS: OLANZapine ORAL DISINTEGRATING TAB 5MG PO PRN (14:34)
[2022-12-11] MEDS: ACETAMINOPHEN TAB 650MG DOSE (2X325MG) PO PRN (19:54)
[2022-12-11] MEDS: QUEtiapine FUMARATE 12.5 MG HALF-TAB PO SCH (19:54)
[2022-12-11] MEDS: RAMELTEON 8 MG TAB (ROZEREM) PO PRN (19:54)
[2022-12-12] MEDS: FLUTICASONE PROP 0.05% NASAL SPRAY 16 GM (FLONASE) NARES SCH ×3 (09:00→21:43)
[2022-12-12] MEDS: METAMUCIL (PSYLLIUM) PACKET PO SCH (09:24)
[2022-12-12] MEDS: CALCIUM/VITAMIN D 500 MG TAB PO SCH ×3 (09:24→21:43)
[2022-12-12] MEDS: MIRALAX *UNIT DOSE* 17GM PACKET PO SCH (09:24)
[2022-12-12] MEDS: DIMETHICONE 2% OINTMENT(VANICREAM) 70GM TUBE TOP SCH ×2 (09:24→21:43)
[2022-12-12] MEDS: FUROSEMIDE 40 MG TAB PO SCH (09:25)
[2022-12-12] MEDS: APIXABAN 2.5 MG TAB (ELIQUIS) PO SCH ×2 (09:25→21:43)
[2022-12-12 09:29] VITALS: BP 120/78
[2022-12-12] MEDS: QUEtiapine FUMARATE 12.5 MG HALF-TAB PO SCH (21:43)
[2022-12-13 06:00] VITALS: BP 151/88
[2022-12-13 09:10] VITALS: BP 133/77
[2022-12-13] MEDS: CALCIUM/VITAMIN D 500 MG TAB PO SCH (09:17)
[2022-12-13] MEDS: FLUTICASONE PROP 0.05% NASAL SPRAY 16 GM (FLONASE) NARES SCH (09:17)
[2022-12-13] MEDS: MIRALAX *UNIT DOSE* 17GM PACKET PO SCH (09:17)
[2022-12-13] MEDS: APIXABAN 2.5 MG TAB (ELIQUIS) PO SCH (09:17)
[2022-12-13] MEDS: FUROSEMIDE 40 MG TAB PO SCH (09:17)
[2022-12-13] MEDS: METAMUCIL (PSYLLIUM) PACKET PO SCH (09:17)
[2022-12-13] MEDS: DIMETHICONE 2% OINTMENT(VANICREAM) 70GM TUBE TOP SCH (09:18)
[2022-12-13] MEDS ORDERED: FLUTISP NARES (13:59)
[2022-12-13] MEDS ORDERED: CALCD50TA PO (13:59)
[2022-12-13] MEDS ORDERED: MIRA1POW3 PO (13:59)
[2022-12-13] MEDS ORDERED: FURO40TA2 PO (13:59)
[2022-12-13] MEDS ORDERED: META1POW PO (13:59)
[2022-12-13] MEDS ORDERED: ELIQ2.5T PO (13:59)
[2022-12-13] MEDS ORDERED: QUET1TAB17 PO (13:59)
== END 2022-12-13 14:23 | DRG 264 ==
LOC: M ED 11:29 → M ED INP 15:35 → OBSVTOIN 15:52 → ENRESERV 16:27 → M PCU 17:20 → M MSPAV 06-10 16:23
PROVIDERS: ADMIT Internal Medicine; ATTEND Internal Medicine
PROC: 0JBR0ZZ Excision of Left Foot Subcutaneous Tissue and Fascia, Open Approach (ICD-10-PCS; principal; 2022-06-12)
DX: I16.0 Hypertensive urgency (principal); U07.1 COVID-19; L89.893 Pressure ulcer of other site, stage 3; F02.818 Dementia in other diseases classified elsewhere, unspecified severity, with other behavioral disturbance; F05 Delirium due to known physiological condition; I82.621 Acute embolism and thrombosis of deep veins of right upper extremity; B35.1 Tinea unguium; G47.00 Insomnia, unspecified; G30.9 Alzheimer's disease, unspecified; E78.5 Hyperlipidemia, unspecified; M85.80 Other specified disorders of bone density and structure, unspecified site; R91.8 Other nonspecific abnormal finding of lung field; I87.2 Venous insufficiency (chronic) (peripheral); L97.529 Non-pressure chronic ulcer of other part of left foot with unspecified severity; I49.3 Ventricular premature depolarization; I10 Essential (primary) hypertension; Z79.01 Long term (current) use of anticoagulants; Z79.899 Other long term (current) drug therapy

== ENCOUNTER → 2023-08-31 | Outpatient (REF) | payer MEDICARE ==
[~2023-08-31] MED LIST changes: +CALCD50TA PO; +ELIQ2.5T PO; +FLUT50SP17 NARES; +FURO40TA2 PO; +META1POW PO; +MIRA1POW3 PO; +QUET1TAB17 PO
[2023-08-31 23:31] LABS: APPEARANCE, URINE HAZY (CLEAR); BACTERIA, URINE AUTO NEGATIVE (NEGATIVE); BILIRUBIN, URINE AUTO NEGATIVE (NEGATIVE); BLOOD, URINE BLOOD NEGATIVE (NEGATIVE); COLOR, URINE YELLOW (YELLOW); GLUCOSE, URINE (UA) AUTO NEGATIVE (NEGATIVE); KETONE, URINE AUTO NEGATIVE (NEGATIVE); LEUKOCYTE ESTERASE, URINE AUTO NEGATIVE (NEGATIVE); MUCUS, URINE SMALL (NEGATIVE); NITRITE, URINE AUTO NEGATIVE (NEGATIVE); PROTEIN, URINE AUTO NEGATIVE (NEGATIVE); RBC, URINE AUTO 0 /HPF (0-3); SPECIFIC GRAVITY URINE AUTO 1.016 (1.002-1.035); SQUAMOUS EPITHELIAL CELL UR AU 1 /HPF (0-6); UROBILINOGEN, URINE AUTO 0.2 mg/dL (0.0-2.0); WBC, URINE AUTO 1 /HPF (0-3)
== END ==
LOC: SKLAB6 06:40
PROVIDERS: ATTEND Internal Medicine
DX: R45.1 Restlessness and agitation (principal); Z79.899 Other long term (current) drug therapy

== ENCOUNTER → 2023-09-04 | Outpatient (REF) | payer MEDICARE ==
[2023-09-04 01:30] LABS: APPEARANCE, URINE CLEAR (CLEAR); BACTERIA, URINE AUTO NEGATIVE (NEGATIVE); BILIRUBIN, URINE AUTO NEGATIVE (NEGATIVE); BLOOD, URINE BLOOD NEGATIVE (NEGATIVE); COLOR, URINE YELLOW (YELLOW); GLUCOSE, URINE (UA) AUTO NEGATIVE (NEGATIVE); KETONE, URINE AUTO NEGATIVE (NEGATIVE); LEUKOCYTE ESTERASE, URINE AUTO NEGATIVE (NEGATIVE); MUCUS, URINE SMALL (NEGATIVE); NITRITE, URINE AUTO NEGATIVE (NEGATIVE); PROTEIN, URINE AUTO NEGATIVE (NEGATIVE); RBC, URINE AUTO 1 /HPF (0-3); SPECIFIC GRAVITY URINE AUTO 1.015 (1.002-1.035); SQUAMOUS EPITHELIAL CELL UR AU 0 /HPF (0-6); UROBILINOGEN, URINE AUTO 0.2 mg/dL (0.0-2.0); WBC, URINE AUTO 4 /HPF (0-3)
== END ==
LOC: SKLAB6 07:00
PROVIDERS: ATTEND Nurse Practitioner Adult Health
DX: R45.1 Restlessness and agitation (principal); R45.89 Other symptoms and signs involving emotional state; Z79.899 Other long term (current) drug therapy

== ENCOUNTER → 2023-10-20 | Outpatient (REF) | payer MEDICARE ==
[~2023-10-20] MED LIST changes: -FLUT50SP17 NARES; +FLUTISP NARES
== END ==
LOC: SKLAB6 09:36
PROVIDERS: ATTEND Internal Medicine
DX: R05.9 Cough, unspecified (principal)

== ENCOUNTER → 2023-10-21 | Outpatient (REF) ==
[2023-10-21 22:19] LABS: HEMATOCRIT 39.1 % (36.0-47.0); HEMOGLOBIN 13.2 g/dl (12.0-15.5); MEAN CORPUSCULAR HEMOGLOBIN 30.3 pg (27.0-33.0); MEAN CORPUSCULAR HGB CONC 33.8 g/dl (32.0-36.5); MEAN CORPUSCULAR VOLUME 89.9 fl (80.0-96.0); PLATELET COUNT, AUTOMATED 199 10^3/uL (150-450); RED BLOOD COUNT 4.35 10^6/uL (4.00-5.40); WHITE BLOOD COUNT 7.5 10^3/uL (4.0-10.0)
[2023-10-21 22:43] LABS: ALBUMIN 3.9 G/DL (3.2-5.2); ALKALINE PHOSPHATASE 49 U/L (46-116); ALT/SGPT 13 U/L (7.0-40); AST/SGOT 15 U/L (<34); BILIRUBIN,TOTAL 0.8 MG/DL (0.3-1.2); BLOOD UREA NITROGEN 21 MG/DL (9-23); CALCIUM LEVEL 9.2 MG/DL (8.3-10.6); CARBON DIOXIDE LEVEL 26 MMOL/L (20-31); CHLORIDE LEVEL 112 MMOL/L (98-107); GLOMERULAR FILTRATION RATE > 60.0 (>32); GLUCOSE, FASTING 104 MG/DL (74-106); POTASSIUM SERUM 4.5 MMOL/L (3.5-5.1); SODIUM LEVEL 144 MMOL/L (136-145); TOTAL PROTEIN 6.6 G/DL (5.7-8.2)
== END ==
LOC: SKLAB6 10:17
PROVIDERS: ATTEND Internal Medicine
DX: R11.2 Nausea with vomiting, unspecified (principal)

== ENCOUNTER → 2023-11-08 | Outpatient (REF) | payer MEDICARE | LOC: SKLAB6 05:20 | PROVIDERS: ATTEND Nurse Practitioner Adult Health | DX: R19.7 Diarrhea, unspecified (principal) ==

== ENCOUNTER → 2023-11-24 | Outpatient (REF) | payer MEDICARE | LOC: SKLAB6 06:04 | PROVIDERS: ATTEND Internal Medicine | DX: R19.7 Diarrhea, unspecified (principal) ==

== ENCOUNTER → 2024-02-19 | Outpatient (REF) | payer MEDICARE ==
[~2024-02-19] MED LIST changes: -MIRA1POW3 PO; +MIRA33506 PO; +ROSU5TAB40 PO; -ROSU5TAB5 PO
[2024-02-19 04:17] LABS: AMORPHOUS SEDIMENT SMALL (NEGATIVE); APPEARANCE, URINE TURBID (CLEAR); BACTERIA, URINE AUTO 1+ (NEGATIVE); BILIRUBIN, URINE AUTO NEGATIVE (NEGATIVE); BLOOD, URINE BLOOD 1+ (NEGATIVE); COLOR, URINE AMBER (YELLOW); GLUCOSE, URINE (UA) AUTO NEGATIVE (NEGATIVE); KETONE, URINE AUTO TRACE mg/dL (NEGATIVE); LEUKOCYTE ESTERASE, URINE AUTO 2+ (NEGATIVE); NITRITE, URINE AUTO NEGATIVE (NEGATIVE); PROTEIN, URINE AUTO 3+ mg/dL (NEGATIVE); RBC, URINE AUTO TNTC /HPF (0-3); SPECIFIC GRAVITY URINE AUTO 1.019 (1.002-1.035); SQUAMOUS EPITHELIAL CELL UR AU 1 /HPF (0-6); TRIPLE PHOSPHATE CRYSTALS SMALL; UROBILINOGEN, URINE AUTO 0.2 mg/dL (0.0-2.0); WBC, URINE AUTO 22 /HPF (0-3)
[2024-02-19 11:12] LABS: HEMATOCRIT 38.4 % (36.0-47.0); HEMOGLOBIN 12.5 g/dl (12.0-15.5); MEAN CORPUSCULAR HGB CONC 32.6 g/dl (32.0-36.5); MEAN CORPUSCULAR VOLUME 89.1 fl (80.0-96.0); PLATELET COUNT, AUTOMATED 168 10^3/uL (150-450); RED BLOOD COUNT 4.31 10^6/uL (4.00-5.40); WHITE BLOOD COUNT 10.7 10^3/uL (4.0-10.0)
[2024-02-19 11:39] LABS: CALCIUM LEVEL 8.8 MG/DL (8.3-10.6); CREATININE FOR GFR 1.06 MG/DL (0.55-1.30); POTASSIUM SERUM 4.3 MMOL/L (3.5-5.1)
== END ==
LOC: SKLAB6 07:00
PROVIDERS: ATTEND Internal Medicine
DX: R41.82 Altered mental status, unspecified (principal); W19.XXXA Unspecified fall, initial encounter; R58 Hemorrhage, not elsewhere classified

== ENCOUNTER 2024-02-29 21:59 | Emergency (ER) | payer MEDICARE ==
[2024-02-29 22:26] VITALS: TEMP 97.9
[2024-02-29 23:00] VITALS: BP 135/64
[2024-02-29 23:14] VITALS: O2SAT 98
== END 2024-02-29 23:56 | disposition home or self-care (01) ==
LOC: M ED 21:59
DX: S00.33XA Contusion of nose, initial encounter (principal); Y92.9 Unspecified place or not applicable; Y93.9 Activity, unspecified; Y99.9 Unspecified external cause status; Z79.899 Other long term (current) drug therapy

== ENCOUNTER → 2024-03-11 | Outpatient (REF) | payer MEDICARE ==
[2024-03-11 08:34] LABS: BASO % 0.3 % (0.0-1.0); HEMATOCRIT 38.9 % (36.0-47.0); HEMOGLOBIN 12.8 g/dl (12.0-15.5); LYMPH # 0.8 10^3/uL (1.5-5.0); LYMPH % 10.9 % (24.0-44.0); MEAN CORPUSCULAR HEMOGLOBIN 29.4 pg (27.0-33.0); MEAN CORPUSCULAR HGB CONC 32.9 g/dl (32.0-36.5); MEAN CORPUSCULAR VOLUME 89.2 fl (80.0-96.0); MONO # 0.7 10^3/uL (0.0-0.8); MONO % 9.3 % (2.0-8.0); NEUTROPHILS % 79.1 % (36.0-66.0); PLATELET COUNT, AUTOMATED 182 10^3/uL (150-450); RED BLOOD COUNT 4.36 10^6/uL (4.00-5.40); WHITE BLOOD COUNT 7.6 10^3/uL (4.0-10.0)
[2024-03-11 08:59] LABS: CALCIUM LEVEL 9.1 MG/DL (8.3-10.6); CREATININE FOR GFR 1.05 MG/DL (0.55-1.30); GLOMERULAR FILTRATION RATE 53.5 (>32); POTASSIUM SERUM 3.9 MMOL/L (3.5-5.1)
== END ==
LOC: SKLAB6 07:01
PROVIDERS: ATTEND Internal Medicine
DX: R09.89 Other specified symptoms and signs involving the circulatory and respiratory systems (principal)

== ENCOUNTER → 2024-07-06 | Outpatient (REF) | payer MEDICARE ==
[~2024-07-06] MED LIST changes: +ONDA-282 PO; -ONDA4TAB6 PO
[2024-07-06 19:00] LABS: BASO # 0.1 10^3/uL (0.0-0.2); BASO % 0.8 % (0.0-1.0); EOS # 0.2 10^3/uL (0.0-0.5); EOS % 2.4 % (0.0-3.0); HEMATOCRIT 35.5 % (36.0-47.0); HEMOGLOBIN 11.9 g/dl (12.0-15.5); LYMPH # 1.5 10^3/uL (1.5-5.0); LYMPH % 22.6 % (24.0-44.0); MEAN CORPUSCULAR HEMOGLOBIN 29.7 pg (27.0-33.0); MEAN CORPUSCULAR HGB CONC 33.5 g/dl (32.0-36.5); MEAN CORPUSCULAR VOLUME 88.5 fl (80.0-96.0); MONO # 0.6 10^3/uL (0.0-0.8); MONO % 8.5 % (2.0-8.0); NEUTROPHILS # 4.3 10^3/uL (1.5-8.5); NEUTROPHILS % 65.1 % (36.0-66.0); PLATELET COUNT, AUTOMATED 206 10^3/uL (150-450); RED BLOOD COUNT 4.01 10^6/uL (4.00-5.40); WHITE BLOOD COUNT 6.6 10^3/uL (4.0-10.0)
[2024-07-06 19:19] LABS: APPEARANCE, URINE CLOUDY (CLEAR); BACTERIA, URINE AUTO NEGATIVE (NEGATIVE); BILIRUBIN, URINE AUTO NEGATIVE (NEGATIVE); BLOOD, URINE BLOOD NEGATIVE (NEGATIVE); COLOR, URINE YELLOW (YELLOW); GLUCOSE, URINE (UA) AUTO NEGATIVE (NEGATIVE); KETONE, URINE AUTO NEGATIVE (NEGATIVE); LEUKOCYTE ESTERASE, URINE AUTO 3+ (NEGATIVE); NITRITE, URINE AUTO NEGATIVE (NEGATIVE); PROTEIN, URINE AUTO 1+ mg/dL (NEGATIVE); RBC, URINE AUTO 8 /HPF (0-3); SPECIFIC GRAVITY URINE AUTO 1.014 (1.002-1.035); SQUAMOUS EPITHELIAL CELL UR AU 3 /HPF (0-6); UROBILINOGEN, URINE AUTO 0.2 mg/dL (0.0-2.0); WBC, URINE AUTO TNTC /HPF (0-3)
[2024-07-06 19:32] LABS: ALBUMIN 3.7 G/DL (3.2-5.2); ALKALINE PHOSPHATASE 105 U/L (46-116); ALT/SGPT 17 U/L (7.0-40); AST/SGOT 15 U/L (<34); BILIRUBIN,TOTAL 0.5 MG/DL (0.3-1.2); BLOOD UREA NITROGEN 23 MG/DL (9-23); CALCIUM LEVEL 9.4 MG/DL (8.3-10.6); CARBON DIOXIDE LEVEL 27 MMOL/L (20-31); CHLORIDE LEVEL 108 MMOL/L (98-107); CREATININE FOR GFR 0.83 MG/DL (0.55-1.30); GLOMERULAR FILTRATION RATE > 60.0 (>32); GLUCOSE, FASTING 115 MG/DL (74-106); SODIUM LEVEL 142 MMOL/L (136-145); TOTAL PROTEIN 6.6 G/DL (5.7-8.2)
== END ==
LOC: SKLAB6 07:00
PROVIDERS: ATTEND Nurse Practitioner Adult Health
DX: R50.9 Fever, unspecified (principal)

== ENCOUNTER 2025-01-05 03:54 | Inpatient (IN) | payer MEDICARE ==
[~2025-01-05] VITALS: Ht 160 cm; Wt 56.0 kg
[~2025-01-05 03:54] MED LIST changes: -ROSU5TAB40 PO; +ROSU5TAB49 PO
[2025-01-05 04:44] LABS: BASO # 0.1 10^3/uL (0.0-0.2); BASO % 0.8 % (0.0-1.0); EOS # 0.3 10^3/uL (0.0-0.5); EOS % 4.1 % (0.0-3.0); HEMATOCRIT 38.8 % (36.0-47.0); HEMOGLOBIN 12.9 g/dl (12.0-15.5); LYMPH # 2.7 10^3/uL (1.5-5.0); MEAN CORPUSCULAR HEMOGLOBIN 30.4 pg (27.0-33.0); MEAN CORPUSCULAR HGB CONC 33.2 g/dl (32.0-36.5); MEAN CORPUSCULAR VOLUME 91.5 fl (80.0-96.0); MONO # 0.5 10^3/uL (0.0-0.8); MONO % 8.2 % (2.0-8.0); NEUTROPHILS # 2.6 10^3/uL (1.5-8.5); NEUTROPHILS % 42.4 % (36.0-66.0); PLATELET COUNT, AUTOMATED 200 10^3/uL (150-450); RED BLOOD COUNT 4.24 10^6/uL (4.00-5.40); WHITE BLOOD COUNT 6.1 10^3/uL (4.0-10.0)
[2025-01-05 05:03] LABS: BLOOD UREA NITROGEN 30 MG/DL (9-23); CALCIUM LEVEL 9.1 MG/DL (8.3-10.6); CARBON DIOXIDE LEVEL 27 MMOL/L (20-31); CHLORIDE LEVEL 108 MMOL/L (98-107); CREATININE FOR GFR 0.62 MG/DL (0.55-1.30); GLOMERULAR FILTRATION RATE > 60.0 (>32); GLUCOSE, FASTING 114 MG/DL (74-106); POTASSIUM SERUM 4.4 MMOL/L (3.5-5.1); SODIUM LEVEL 143 MMOL/L (136-145)
[2025-01-05 05:07] LABS: INR 0.99; PARTIAL THROMBOPLASTIN TIME 31.4 SECONDS (24.8-34.2); PROTHROMBIN TIME 13.4 SECONDS (12.5-14.5)
[2025-01-05] MEDS: ONDANSETRON 4MG 2ML VIAL IV ONE (06:53)
[2025-01-05] MEDS: MORPHINE 4 MG/ML 1ML VIAL IV PRN (06:53)
[2025-01-05] MEDS ORDERED: MOM 30ML SUSPENSION UDC PO PRN (08:20)
[2025-01-05] MEDS ORDERED: ONDANSETRON 4MG 2ML VIAL IV PRN (08:20)
[2025-01-05] MEDS: KETOROLAC 30 MG/ML 1ML VIAL IV SCH (08:46)
[2025-01-05] MEDS: ACETAMINOPHEN 325 MG TAB PO SCH (10:56)
[2025-01-05] MEDS: DOCUSATE SODIUM 100MG CAPSULE PO SCH (10:56)
[2025-01-05] MEDS: PANTOPRAZOLE 40MG VIAL IV SCH (10:56)
[2025-01-05 12:30] VITALS: BP 121/75; TEMP 97.7; O2SAT 95
[2025-01-05 20:00] VITALS: BP 108/60; TEMP 98.1; O2SAT 94
[2025-01-05] MEDS: SENNA 8.6 MG TAB (SENOKOT) PO SCH (21:00)
[2025-01-05] MEDS: MORPHINE 2 MG/ML 1ML VIAL IV PRN (21:00)
[2025-01-05] MEDS ORDERED: OYST500T11 PO (21:43)
[2025-01-05] MEDS ORDERED: MELA3TAB7 PO (21:43)
[2025-01-05] MEDS ORDERED: POLY17PO18 PO (21:43)
[2025-01-05] MEDS ORDERED: OLAN1TAB16 PO (21:43)
[2025-01-05] MEDS ORDERED: ELIQ2.5T PO (21:43)
[2025-01-05] MEDS ORDERED: QUET1TAB17 PO (21:43)
[2025-01-05] MEDS ORDERED: HOME MED LIST COMPLETE! XX SCH (21:50)
[2025-01-06] VITALS (9 sets, daily range): BP systolic 68–162; BP diastolic 44–90; TEMP 96.6–98.1; O2SAT 92–99
[2025-01-06 05:41] LABS: BASO % 0.5 % (0.0-1.0); EOS # 0.3 10^3/uL (0.0-0.5); EOS % 3.2 % (0.0-3.0); HEMATOCRIT 36.1 % (36.0-47.0); LYMPH # 1.1 10^3/uL (1.5-5.0); MEAN CORPUSCULAR HGB CONC 33.2 g/dl (32.0-36.5); MEAN CORPUSCULAR VOLUME 90.3 fl (80.0-96.0); MONO # 0.6 10^3/uL (0.0-0.8); MONO % 7.4 % (2.0-8.0); NEUTROPHILS # 5.9 10^3/uL (1.5-8.5); NEUTROPHILS % 74.6 % (36.0-66.0); PLATELET COUNT, AUTOMATED 146 10^3/uL (150-450); WHITE BLOOD COUNT 7.9 10^3/uL (4.0-10.0)
[2025-01-06 05:54] LABS: BLOOD UREA NITROGEN 25 MG/DL (9-23); CALCIUM LEVEL 8.9 MG/DL (8.3-10.6); CARBON DIOXIDE LEVEL 25 MMOL/L (20-31); CHLORIDE LEVEL 108 MMOL/L (98-107); CREATININE FOR GFR 0.63 MG/DL (0.55-1.30); GLOMERULAR FILTRATION RATE > 60.0 (>32); GLUCOSE, FASTING 113 MG/DL (74-106); POTASSIUM SERUM 4.1 MMOL/L (3.5-5.1); SODIUM LEVEL 142 MMOL/L (136-145)
[2025-01-06] MEDS: ceFAZolin SODIUM 2 GM VIAL As Ordered ONE (16:18)
[2025-01-06] MEDS ORDERED: PHENYLephrine 500MCG 5ML (100MCG/ML) SYRINGE As Ordered ONE (16:30)
[2025-01-06] MEDS ORDERED: ROCURONIUM BROMIDE 50MG/5ML VIAL As Ordered ONE (16:30)
[2025-01-06] MEDS ORDERED: ONDANSETRON 4MG 2ML VIAL As Ordered ONE (16:30)
[2025-01-06] MEDS ORDERED: SUGAMMADEX SODIUM 500 MG/5 ML VIAL (BRIDION) As Ordered ONE (16:30)
[2025-01-06] MEDS ORDERED: ETOMIDATE INJ 20MG/10ML VIAL As Ordered ONE (16:30)
[2025-01-06] MEDS ORDERED: propofoL 200 MG/20 ML VIAL As Ordered ONE (16:30)
[2025-01-06] MEDS ORDERED: LIDOCAINE 2% 100MG/5ML SDV (FOR ANES.) As Ordered ONE (16:30)
[2025-01-06] MEDS ORDERED: ACETAMINOPHEN 1000MG/100ML IV BAG As Ordered ONE (16:30)
[2025-01-06] MEDS ORDERED: fentaNYL 250 MCG/5 ML INJECTION As Ordered ONE (16:30)
[2025-01-06] MEDS ORDERED: KETOROLAC 30 MG/ML 1ML VIAL As Ordered ONE (16:38)
[2025-01-06] MEDS ORDERED: fentaNYL 100 MCG/2 ML INJECTION IV PRN (16:55)
[2025-01-06] MEDS ORDERED: ONDANSETRON 4MG 2ML VIAL IV PRN (16:55)
[2025-01-06] MEDS: LR 1,000 ML IV SCH (16:55)
[2025-01-06] MEDS ORDERED: oxyCODONE 5MG TAB PO PRN (16:55)
[2025-01-06] MEDS: HYDROMORPHONE HCL 0.5 MG/ 0.5 ML SYRINGE IV PRN (17:26)
[2025-01-06] MEDS: PHENYLEPHRINE 10MG/ML 1ML VIAL IV ONE (18:02)
[2025-01-06] MEDS: LR 1,000 ML IV ONE (18:02)
[2025-01-06 18:08] LABS: HEMATOCRIT 27.2 % (36.0-47.0); MEAN CORPUSCULAR HEMOGLOBIN 30.4 pg (27.0-33.0); MEAN CORPUSCULAR HGB CONC 33.1 g/dl (32.0-36.5); MEAN CORPUSCULAR VOLUME 91.9 fl (80.0-96.0); PLATELET COUNT, AUTOMATED 147 10^3/uL (150-450); RED BLOOD COUNT 2.96 10^6/uL (4.00-5.40); WHITE BLOOD COUNT 15.8 10^3/uL (4.0-10.0)
[2025-01-06] MEDS ORDERED: PHENYLephrine 500MCG 5ML (100MCG/ML) SYRINGE IV PRN (19:50)
[2025-01-06] MEDS: NS (Normal Saline) 0.9% 1,000 ML IV ONE (23:23)
[2025-01-07 00:15] VITALS: BP 110/64
[2025-01-07 00:28] LABS: ALBUMIN 2.7 G/DL (3.2-5.2); CALCIUM LEVEL 8.4 MG/DL (8.3-10.6); CREATININE FOR GFR 1.18 MG/DL (0.55-1.30); GLOMERULAR FILTRATION RATE 46.7 (>32); MAGNESIUM LEVEL 1.9 MG/DL (1.8-2.4); POTASSIUM SERUM 4.8 MMOL/L (3.5-5.1); TOTAL PROTEIN 5.2 G/DL (5.7-8.2)
[2025-01-07] MEDS: NS 500 ML IV ONE (00:52)
[2025-01-07 01:10] LABS: BASO % 0.3 % (0.0-1.0); HEMATOCRIT 25.5 % (36.0-47.0); HEMOGLOBIN 8.6 g/dl (12.0-15.5); LYMPH # 0.7 10^3/uL (1.5-5.0); LYMPH % 4.9 % (24.0-44.0); MEAN CORPUSCULAR HEMOGLOBIN 30.6 pg (27.0-33.0); MEAN CORPUSCULAR HGB CONC 33.7 g/dl (32.0-36.5); MEAN CORPUSCULAR VOLUME 90.7 fl (80.0-96.0); MONO # 0.7 10^3/uL (0.0-0.8); MONO % 5.2 % (2.0-8.0); NEUTROPHILS # 12.3 10^3/uL (1.5-8.5); NEUTROPHILS % 89.1 % (36.0-66.0); PLATELET COUNT, AUTOMATED 149 10^3/uL (150-450); RED BLOOD COUNT 2.81 10^6/uL (4.00-5.40); WHITE BLOOD COUNT 13.8 10^3/uL (4.0-10.0)
[2025-01-07] MEDS: ceFAZolin SODIUM 2 GM in DEXTROSE 5% (D5W) ADV/MINI-BAG 50 ML IV SCH (01:25)
[2025-01-07] MEDS: ACETAMINOPHEN *IV* 1,000 MG in IV 1 EA IV ONE (02:17)
[2025-01-07 04:00] VITALS: BP 122/76; TEMP 97.3; O2SAT 97
[2025-01-07 04:38] LABS: BASO % 0.2 % (0.0-1.0); LYMPH # 0.8 10^3/uL (1.5-5.0); LYMPH % 6.6 % (24.0-44.0); MEAN CORPUSCULAR HEMOGLOBIN 30.8 pg (27.0-33.0); MEAN CORPUSCULAR HGB CONC 33.7 g/dl (32.0-36.5); MEAN CORPUSCULAR VOLUME 91.6 fl (80.0-96.0); MONO # 0.7 10^3/uL (0.0-0.8); MONO % 6.5 % (2.0-8.0); NEUTROPHILS # 9.9 10^3/uL (1.5-8.5); NEUTROPHILS % 86.1 % (36.0-66.0); PLATELET COUNT, AUTOMATED 132 10^3/uL (150-450); RED BLOOD COUNT 2.27 10^6/uL (4.00-5.40); WHITE BLOOD COUNT 11.5 10^3/uL (4.0-10.0)
[2025-01-07 04:44] LABS: HEMATOCRIT 20.8 % (36.0-47.0)
[2025-01-07 04:48] LABS: CALCIUM LEVEL 7.8 MG/DL (8.3-10.6); CREATININE FOR GFR 0.99 MG/DL (0.55-1.30); GLOMERULAR FILTRATION RATE 57.2 (>32); POTASSIUM SERUM 4.6 MMOL/L (3.5-5.1)
[2025-01-07 08:00] VITALS: BP 124/75; TEMP 97.7; O2SAT 98
[2025-01-07 11:51] VITALS: BP 123/77; TEMP 97.7; O2SAT 95
[2025-01-07] MEDS ORDERED: LORazepam 1 MG TAB PO PRN (15:25)
[2025-01-07] MEDS ORDERED: ONDANSETRON 4MG 2ML VIAL IV PRN (15:25)
[2025-01-07] MEDS ORDERED: SCOPOLAMINE 1MG TRANSDERMAL PATCH TOP PRN (15:25)
[2025-01-07] MEDS ORDERED: HYOSCYAMINE SULFATE 0.125 MG SUBL TABLET PO PRN (15:25)
[2025-01-08 05:05] LABS: BASO # 0.1 10^3/uL (0.0-0.2); BASO % 0.5 % (0.0-1.0); EOS # 0.1 10^3/uL (0.0-0.5); EOS % 1.4 % (0.0-3.0); LYMPH # 1.4 10^3/uL (1.5-5.0); LYMPH % 15.4 % (24.0-44.0); MEAN CORPUSCULAR HEMOGLOBIN 30.1 pg (27.0-33.0); MEAN CORPUSCULAR HGB CONC 32.7 g/dl (32.0-36.5); MEAN CORPUSCULAR VOLUME 91.9 fl (80.0-96.0); MONO # 0.8 10^3/uL (0.0-0.8); MONO % 8.2 % (2.0-8.0); NEUTROPHILS # 6.8 10^3/uL (1.5-8.5); NEUTROPHILS % 74.1 % (36.0-66.0); PLATELET COUNT, AUTOMATED 140 10^3/uL (150-450); RED BLOOD COUNT 1.73 10^6/uL (4.00-5.40); WHITE BLOOD COUNT 9.2 10^3/uL (4.0-10.0)
[2025-01-08 05:14] LABS: HEMOGLOBIN 5.2 g/dl (12.0-15.5)
[2025-01-08 05:15] LABS: HEMATOCRIT 15.9 % (36.0-47.0)
[2025-01-08 05:28] LABS: BLOOD UREA NITROGEN 42 MG/DL (9-23); CARBON DIOXIDE LEVEL 25 MMOL/L (20-31); CHLORIDE LEVEL 111 MMOL/L (98-107); CREATININE FOR GFR 0.83 MG/DL (0.55-1.30); GLOMERULAR FILTRATION RATE > 60.0 (>32); GLUCOSE, FASTING 114 MG/DL (74-106); SODIUM LEVEL 147 MMOL/L (136-145)
[2025-01-08] MEDS: MORPHINE 10MG/0.5ML ORAL CONCENTRATE SOLUTION U/D SL PRN (08:25)
[2025-01-08] MEDS ORDERED: HYOS125TA PO (10:18)
[2025-01-08] MEDS ORDERED: ATIV1TAB10 PO (10:18)
[2025-01-08] MEDS ORDERED: MORP1SOL5 PO (10:18)
== END 2025-01-08 13:37 | DRG 481 ==
LOC: M ED 03:54 → M ED INP 08:17 → M MSPAV 12:29
PROVIDERS: ADMIT Internal Medicine Nephrology; ATTEND Student in an Organized Health Care Education/Training Program
PROC: 0QS636Z Reposition Right Upper Femur with Intramedullary Internal Fixation Device, Percutaneous Approach (ICD-10-PCS; principal; 2025-01-06 12:00)
DX: S72.141A Displaced intertrochanteric fracture of right femur, initial encounter for closed fracture (principal); F03.918 Unspecified dementia, unspecified severity, with other behavioral disturbance; D62 Acute posthemorrhagic anemia; Z66 Do not resuscitate; W01.0XXA Fall on same level from slipping, tripping and stumbling without subsequent striking against object, initial encounter; Y92.009 Unspecified place in unspecified non-institutional (private) residence as the place of occurrence of the external cause; R26.89 Other abnormalities of gait and mobility; Z86.718 Personal history of other venous thrombosis and embolism; I10 Essential (primary) hypertension; E78.5 Hyperlipidemia, unspecified; I27.20 Pulmonary hypertension, unspecified; I34.0 Nonrheumatic mitral (valve) insufficiency; Z79.01 Long term (current) use of anticoagulants; Z79.899 Other long term (current) drug therapy; M85.80 Other specified disorders of bone density and structure, unspecified site; I95.9 Hypotension, unspecified